=== PATIENT | female | born 1935 | race Caucasian/White ===

== ENCOUNTER 2024-07-16 08:40 | Inpatient (IN) | payer MEDICARE, OTHER, SELFPAY ==
[2024-07-16] VITALS (23 sets, daily range): BP systolic 117–133; BP diastolic 56–87; PULSE 63–74; RESP 0–21; TEMP 36.2–36.6; O2SAT 92–94; BMI 20.8
--- OUTSIDE RECORDS SUMMARY | 2024-07-16 08:43 | XMS_ITS | Encounter Summary ---
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 Name Role Phone Margie Lopez MD Primary Care Provider [phone] Encounter Details Date Type Department Care Team (Latest Contact Info) Description 08/09/2015 Consent for Procedure/Treatm ent Ophthalmology at [address] [address] Janette Shea MD [address] [id number] CONSENT FOR PROCEDURE Social History Tobacco Use Types Packs/Day Years Used Date Smoking Tobacco: Never Smokeless Tobacco: Never Alcohol Use Standard Drinks/Week Comments No 0 (1 standard drink = 0.6 oz pur e alcohol) Comments No Sex and Gender Information Value Date Recorded Sex Assigned at Not on file Legal Sex Female 3:32 AM CDT Gender Identity Not on file Sexual Orientation Not on file documented as of this encounter Plan of Treatment Not on file documented as of this encounter Visit Diagnoses Not on filedocumented in this encounter Additional Health Concerns Infection Onset Date Last Indicated Resolved Time R/O COVID19 06/28/2022 06/28/2022 06/28/2022 8:55 AM CDT documented as of this encounter 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
--- OUTSIDE RECORDS SUMMARY | 2024-07-16 08:43 | XMS_ITS | Clinical Summary ---
Author Organization Formerly [facility], [facility] Address [address], [place] [address] Care Team Providers Care Access Nurse Name Role Phone Margie Lopez MD Primary Care Provider [phone] Source Comments You are receiving this document as you are listed as the primary care provider,follow-up provider, or the patient has been referred to you for consultation.This is in compliance with the Medicare andMedicaid EHR Incentive Program,which states Providers who transition their patient to another setting of careor provider of care or refers their patient to another provider of care shouldprovide summary care record for each transition of care or referral. [facility] Allergies No known active allergies Medications * This document contains information received from the source organization and may not represent a complete record from that organization. VITAMIN D 400 UNIT OR CAPS One by mouth every day 30 9 Active Multiple Minerals-Vitam ins (CALCIUM CITRATE PLUS) Take 600 mg by mouth daily. 4 Active zoledronic acid (RECLAST) 5 MG/100ML injectionIndic ations:Hyperpa rathyroidism (HRC),Osteopen ia,Osteopenia with high risk of fracture Administer 5 mg intravenously yearly. Ok to give , gfr is >45 100 mL 0 6 Active ALBUterol sulfate HFA 108 (90 Base) MCG/ACT inhaler Inhale 1-2 Puffs every 4 hours as needed for Wheezing. Pharmacy may substitute albuterol HFA inhalers based on insurance 3 Inhaler 3 8 Active omeprazole (PRILOSEC) 20 MG capsule TAKE ONE CAPSULE BY MOUTH EVERY DAY ONE HOUR BEFORE BREAKFAST 90 Capsule 0 Active amLODIPine (NORVASC) 5 MG tablet Take 1 Tablet (5 mg) by mouth daily. Active levothyroxine (SYNTHROID) 50 MCG tablet Take 1 Tablet (50 mcg) by mouth daily. Active simvastatin (ZOCOR) 20 MG tablet Take 1 Tablet (20 mg) by mouth daily at bedtime. Active donepezil (ARICEPT) 10 MG tablet Take 1 Tablet (10 mg) by mouth daily at bedtime. Active celecoxib (CELEBREX) 100 MG capsule Take 1 Capsule (100 mg) by mouth daily. Active aspirin EC 81 MG enteric coated tablet Take 1 Tablet (81 mg) by mouth daily. Active cefpodoxime (VANTIN) 200 MG tablet Take 1 Tablet (200 mg) by mouth two times a day. 22 Tablet 07/01/2022 10:51 AM CDT 3 Active Active Problems Problem Noted Date Diagnosed Date Sepsis due to Escherichia coli 07/01/2022 Overview (07/01/2022): E. 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 Marquez from Pulmonary. 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 S/p thyroplasty at the [facility] by Dr. Gurpreet Loya. 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 Fecal incontinence 08/05/2006 Impaired fasting glucose 08/08/2005 Urinary incontinence 08/03/2005 Overview (12/23/2014): [facility] Uterine prolapse 08/03/2005 Overview (12/23/2014): [facility] Disorder of bone and cartilage 06/27/2004 Overview (12/23/2014): osteopenia at femoral neck and distal radius Epic Essential hypertension 05/12/2002 Overview (12/23/2014): Epic Hyperlipidemia with target LDL less than 100 Overview (12/01/2014): ICD 10 Cerebrovascular disease 05/12/2002 Overview (12/23/2014): Abnormal MRI of brain, showed few spots of stroke Saw Neurologist Dian Couch in [place] for headaches. Epic Diverticulosis of large intestine 05/12/2002 Overview (12/23/2014): [facility] Resolved Problems Problem Noted Date Diagnosed Date Resolved Date Pseudophakia, right eye 09/30/2015 09/0 09/2016 Overview (11/14/2016): Pseudophakia, right eye (09/29/15) and left eye (11/03/15) PSC (posterior subcapsular c ataract), bilateral 07/18/2015 11/04/2015 Overview (11/14/2016): PSC (posterior subcapsular cataract), OS Vascular insufficiency of intestine 05/12/2002 05/24/2014 Overview (12/23/2014): [facility] Immunizations Immunization Administration Dates Next Due Flu Vac (3+ yrs) 01/06/2007, 6,02/06/2005,2003,01/21/2002,01/22/2001,12/29/1999,1 Influenza IIV3 (Trivalent) Nidia Youngblooddose, 65+ Yrs (20586) 12/10/2017,12/06/2016,12/28/2014,2013 Influenza Vaccine (3+years) ([facility]) 01/21/2008 Influenza Vaccine TIV High D ose 65+ Yrs ([facility]) 12/11/2012,12/07/2010 Influenza, Unspecified Formulation 12/21,01/06/1996,01/12/1994,1992,01/18/1992,02/11/1991 Rachel COVID-19 Vaccine 06/02/2020 PCV13 (Prevnar) 01/08/2017 PPSV23 (Pneumovax) 01/13/2018,01/15/1990 Td 10/07/1997,12/23/1985 Td (7+ yrs) 07/27/2017 Tdap 08/08/2007 Varicella 10/08/1997(Deferred: Immune by Betty rome) Zoster (Zostavax) 07/27/2014 Family History Medical History Relation Name Comments Cataract Mother Cataract Brother Cancer, Breast Maternal Aunt Coronary Artery Disease Maternal Grandfather Coronary Artery Disease Maternal Grandmother Coronary Artery Disease Paternal Grandmother Cancer, Breast Sister 1 Cataract Sister 1 Cancer, Other Sister 2 lung cancer, e x smoker Diabetes, Type II Negative Family History Glaucoma Negative Family History Hypertension Negative Family History Macular Degeneration Negative Family History Thyroid Disorder Negative Family History Relation Name Status Comments Father (Age 56) Mother (Age 92) Brother Maternal Aunt Maternal Grandfather Maternal Grandmother Paternal Grandmother Sister 1 Sister 2 Social History Tobacco Use Types Packs/Day Years Used Date Smoking Tobacco: Never Smokeless Tobacco: Never Alcohol Use Standard Drinks/Week Comments No 0 (1 standard drink = 0.6 oz pur e alcohol) Comments No Sex and Gender Information Value Date Recorded Sex Assigned at Not on file Legal Sex Female 3:32 AM CDT Gender Identity Not on file Sexual Orientation Not on file Last Filed Vital Signs Vital Sign Reading Time Taken Comments Blood Pressure 144/75 07/01/2022 8:18 AM CDT Pulse 73 07/01/2022 8:18 AM CDT Temperature 36.9 C (98.4 F) 07/01/2022 8:18 AM CDT Respiratory Rate 16 07/01/2022 8:18 AM CDT Oxygen Saturation 97% 07/01/2022 8:18 AM CDT Inhaled Oxygen Concentration - - Weight 52.3 kg (115 lb 4.8 oz) 06/28/2022 4:59 P M CDT Height 167.6 cm (5' 6) 06/28/2022 4:59 PM CDT Body Mass Index 18.61 06/28/2022 4:59 PM CDT Plan of Treatment Health Maintenance Due Date Last Done Comments RSV Vaccine (1 - 1-dose 75+ series) 2011 Zoster/Shingles Vaccine (2 of 3) 09/21/2014 07/27/2014 Prediabetes: HGBA1C 11/05/2017 11/05/2016, Medicare Annual Wellness Visit 04/09/2018 04/09/2017 COVID-19 Vaccine ( season) 2023 06/02/2020 Influenza Vaccine (#1) 2023 0, 02/10/2019, 12/10/2017, Additional history exists DTaP/Tdap/Td Vaccine (3 - Tdap) 07/28/2027 07/27/2017, 07/27/2017, 08/08/2007, Additional history exists Dexa Completed 07/12/2016, 06/24, 04/29/2013, Additional history exists Pneumococcal Vaccine 50+ Yrs Completed , 01/08/2017, 01/15/1990 HepA Vaccine Aged Out No longer eligi ble based on patient's age to complete this topic HepB Vaccine Aged Out No longer eligi ble based on patient's age to complete this topic Hib Vaccine Aged Out No longer eligi ble based on patient's age to complete this topic IPV (Polio) Vaccine Aged Out No longe r eligible based on patient's age to complete this topic MCV4 Vaccine Aged Out No longer eligi ble based on patient's age to complete this topic Meningococcal B Vaccine Aged Out No l onger eligible based on patient's age to complete this topic Procedures Procedure Name Priority Date/Time Associated Diagnosis Comments HGB A1C Routine 11/05/2016 2:34 PM CDT Numbness of toes DXA BONE DENSITY SPINE/HIP/FOREARM Routine 07/12/2016 10:51 AM CDT Hyperparathyroidism (HRC) Osteopenia with high hip fracture proabability from Last 3 Months or Most Recently Relevant to Health Maintenance Results * (ABNORMAL) Hgb A1c (11/05/2016 2:34 PM CDT) Hgb A1c 6.1(H) 4.3 - 5.6 % [facility] Comment: See (NOTE) For patients not previously diagnosed with diabetes: 5.7-6.4%: Increased risk for diabetes (prediabetic) 6.5% and greater: Diagnostic for diabetes For diabetic patients: <8.0%: Goal of therapy for ages 18-75 - physicians may recommend a higher or lower goal for specific individuals 11/05/2016 2:34 PM CDT 11/05/2016 2:35 PM CDT Narrative [facility] - 11/06/2016 8:57 AM CDT Performed at [facility], [address] [place] [address] Annamarie Ann MD LAB_1 Final Result [facility] [phone] * DEXA BONE DENSITY SPINE/HIP/FOREARM (07/12/2016 10:51 AM CDT) Anatomical Region Laterality Modality Lower Extremity, Upper Extremity, Spine, Hip, L- Spine, Forearm Other Narrative 07/12/2016 12:52 PM CDT WHO Criteria for the diagnosis of osteoporosis: T-score >-1 Normal T-score between -1 and -2.5 Osteopenia T-score <-2.5 Osteoporosis Fracture risk: T-score -1 2 times increased -2 4 times increased -3 6 times increased *With previous fragility fracture, risk of subsequent fracture doubles again SCREENING FOR OSTEO, HOLD CALCIUM Indication:Osteopenia Insurance Application Investigator and Model of Instrument: [employer] Demographics Age: 81 y.o. Gender: female Height :5' .50 Weight (lbs):161 lbs. Race: Medical/Surgical History Menstrual periods:None Age of menopause:51 History of hip fractures in parents:No History of previous fractures occurring spontaneously, or a fracture as a result of a fall from a standing height or less:No If yes, indicated area: Glucocorticoids use:No Currently taking medication:None Have or had listed medical conditions:Hyperparathyroidism Dietary/Habit Alcohol 3units or more per day (on average):No Currently smoking:No Other pertinent history: Dual-X-ray Absorptiometry (DXA Results) AP spine (L1-L4) Left hip (neck) Left hip (total) Left forearm (1/3) BMD (gm/cm2) 1.038 0.668 0.804 0.577 T score -0.1 -1.6 -1.1 -2.0 Z score 2.6 0.7 0.9 1.2 %change from previous scan dated: 07/20/2014 3.8% 0.0% N/A FRAX Score: 10 YR Risk Hip Fracture % 3.3% Typical threshold to start therapy in patients is a 10-year risk of hip fracture >3%. Clinician s judgment and/or patient preferences may indicate treatment for people with 10-year fracture probabilities above or below these levels. 10 YR Risk Major Osteoporotic Fracture % 14% Typical threshold to start therapy in patients is a 10-year risk of any osteoporotic fracture >20%.Clinicians judgment and/or patient preferences may indicate treatment for people with 10-year fracture probabilities above or below these levels. Diagnosis: *Osteopenia of left hip and left forearm Recommendations:. *Ensure appropriate calcium and vitamin D intake. *Use the FRAX score (above) and clinical judgment to guide further therapy. Comments: *Degenerative joint disease, compression fractures, or calcification artifacts may falsely increase bone mineral density. -Compared to the most recent study there has been a statistically significant increase in bone mineral density at the spine which is clinically important. DXA Scan Follow-up When do you repeat a DXA scan? This depends on a number of factors, including baseline DXA scan results and risk factors for accelerated bone loss. Timing of follow up scan should be individualized. These are general recommendations, but if a patient has significant risk factors for accelerated bone loss that are not noted on the DXA report, more aggressive follow up should be pursued 1. In women and men with low bone mass (T-score -2.00 to -2.49) at any site or who have risk factors for ongoing bone loss (eg, glucocorticoid use, hyperparathyroidism, aromatase inhibitors, etc.), consider a follow-up DXA approximately every one to two years as long as the risk factor persists 2. In women 65 years of age and older at baseline screening, with low bone mass (T-score -1.50 to -1.99) at any site, and with no risk factors for accelerated bone loss, consider a follow-up DXA in three to five years. For women under 65 years old and men, there is no consensus recommendation due to the paucity of data. 3. In women 65 years of age and older with normal or slightly low bone mass (T-score -1.01 to -1.49) at baseline measurement and no risk factors for accelerated bone loss, consider a follow-up DXA in 10 to 15 years. For women under 65 years old and men, there is no consensus recommendation due to the paucity of data. 4. In patients with osteoporosis or who s FRAX score suggests treatment should be initiated, consider a follow-up DXA in one to two years. 5. In patients who are currently on treatment for low bone mass, consider repeating DXA scan one to two years after initiating treatment and possibly less frequently thereafter. There are no recommendations for men <50 years old, or premenopausal women. The FRAX tool has been developed by WHO to evaluate fracture risk to patients. It is based on individual patient models that integrate the risks associated with clinical risk factors as well as bone mineral density (BMD) at the femoral neck. The FRAX algorithms give the 10-year probability of fracture. The output is a 10-year probability of hip fracture and the 10-year probability of a major osteoporotic fracture (clinical spine, forearm, hip or shoulder fracture). Consider FDA-approved medical therapies in postmenopausal women and men aged 50 years and older, based on the following: A hip or vertebral (clinical or morphometric) fracture. T-score ? -2.5 at the femoral neck or spine after appropriate evaluation to exclude secondary causes. Low bone mass(T-score -1.0 and -2.5 at the femoral neck or spine) and a 10-year probability of a hip fracture ? 3% or a 10-year probability of a major osteoporosis-related fracture ? 20% based on the [place]-adapted WHO algorithm. Clinicians judgment and/or patient preferences may indicate treatment for people with 10-year fracture probabilities above or below these levels. Mare Dunaway MD RAD DEXA Final Result from Last 3 Months or Most Recently Relevant to Health Maintenance Insurance MEDICARE SUPPLEMENT MEDICARE HP PREVENTIVE SR PREV ONEVISIT Advance Directives * Do Not Attempt Resuscitation if Pulseless and Apneic, Do Not Intubate for Respiratory Deterioration(Latest Code Status on File) Date Activated Date Inactivated Comments 06/28/2022 4:42 PM 07/01/2022 2:20 PM Question Answer Comments See below for Life Sustainin g Treatment Orders IF pulse and breathing are present: See below Intubation for respiratory deterioration? No BiPAP for respiratory deterioration? Unaddressed /Yes Vasopressors for hypotension? Unaddressed/Yes Cardioversion for unstable rhythm? Unaddressed/Y es * Full Code Date Activated Date Inactivated Comments 06/28/2022 4:31 PM 06/28/2022 4:41 PM Care Teams Access Nurse Relationship Specialty Start Date End Date Margie Lopez MD [address] [place] [address] PCP - General Family Practice 06/29/22
--- OUTSIDE RECORDS SUMMARY | 2024-07-16 08:43 | XMS_ITS | Clinical Summary ---
Author Organization [facility] Address [address] [facility] [place] [address] Care Team Providers Care Home Care Manager Rn Name Role Phone Annamarie Ann MD Unavailable [phone] Kaleb Sun MD Unavailable [phone] Kaleb Sun MD Primary Care Provider + Allergies No known active allergies Medications VENTOLIN HFA 108 (90 BASE) MCG/ACT inhaler INHALE 2 PUFF BY INHALATION ROUTE EVERY 4 - 6 HOURS NEEDED 12 6 Active aspirin (ASA) 81 MG chewable tablet Take 81 mg by mouth At Bedtime Active Vitamin D, Cholecalciferol, 400 units TABS Take 400 Units by mouth every morning Active calcium carbonate-vitamin D (CALCIUM 600+D) 600-200 MG-UNIT TABS Take 1 tablet by mouth daily Active HYDROcodone-acetam inophen (NORCO) 5-325 MG tabletIndications: Pain Take 1 tablet by mouth every 6 hours as needed for pain. 18 tablet 4 Active simvastatin (ZOCOR) 20 MG tabletIndications: Hyperlipidemia, unspecified hyperlipidemia type Take 1 tablet (20 mg) by mouth at bedtime. 90 tablet 3 4 Active QUEtiapine (SEROQUEL) 50 MG tabletIndications: Dysthymic disorder Take 1 tablet (50 mg) by mouth at bedtime. 90 tablet 3 4 Active levothyroxine (SYNTHROID/LEVOTHR OID) 50 MCG tabletIndications: Acquired hypothyroidism Take 1 tablet (50 mcg) by mouth daily. 90 tablet 3 4 Active omeprazole (PRILOSEC) [address] capsuleIndications :Gastroesophageal reflux disease without esophagitis Take 1 capsule (20 mg) by mouth daily. 90 capsule 3 4 Active donepezil (ARICEPT) 10 MG tabletIndications: Dementia, unspecified dementia severity, unspecified dementia type, unspecified whether behavioral, psychotic, or mood disturbance or anxiety (H) Take 1 tablet (10 mg) by mouth at bedtime. 90 tablet 3 4 Active amLODIPine (NORVASC) 10 MG tabletIndications: Essential hypertension Take 1 tablet (10 mg) by mouth daily. 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 Marquez from Pulmonary. 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 S/p thyroplasty at the [facility] by Dr. Gurpreet Loya. Dysphonia improved after surgery Hyperparathyroidism 11/21/2012 Hyperlipidemia 04/09/2011 Varicose vein of leg 11/28/2007 Uterine prolapse 08/03/2005 Overview (12/13/2022): Epic Essential hypertension 05/12/2002 Overview (12/13/2022): Epic Encounters Date Type Department Care Team Description 07/15/2024 5:30 PM CDT E-Visit [facility] [address] [facility] [address] [place] [address] Kaleb Sun MD UTI (Entered automatically based on patien... 07/15/2024 MyC Medical Advice [facility] [address] [facility] [address] [place] [address] Kaleb Sun MD 06/14/2024 Refill [facility] [address] [facility] [address] [place] [address] Kaleb Sun MD Medication Refill from Last 3 Months Immunizations Name Administration Dates Next Due Flu, Unspecified 12/21/1996, 6,01/12/1994,1992,01/18/1992,02/11/1991 Influenza (H1N1) 03/29/2009 Influenza (High Dose) Trival ent,PF (Fluzone) 02/10/2019,12/10/2017,12/06/2016,2015,12/28/2014,12/08/2013,12/11/2012,1 ,12/07/2010,12/28/2009 Influenza (IIV3) PF 01/21/2008, 7,01/07/2006,2004,01/10/2004,01/21/2002,01/22/2001,1 ,12/28/1998 Influenza (prior to 2023) 12/31/2008 Influenza Vaccine 65+ (Fluzone HD) 02/07/2021, Influenza, Split Virus, Triv alent, Pf (Fluzone\Fluarix) 12/31/2008 Pneumo Conj 13-V (2010&after) 01/08/2017 Pneumococcal 23 valent 01/13/2018,01/15/1990 TD,PF 7+ (Tenivac) 10/07/1997,12/23/1985 TDAP (Adacel,Boostrix) 08/08/2007 TDAP Vaccine (Adacel) 07/27/2017 Tdap (Adult) Unspecified Formulation 08/08/2007 Zoster vaccine, live 07/27/2014 Social History Tobacco Use Types Packs/Day Years Used Date Smoking Tobacco: Never Smokeless Tobacco: Never Tobacco Cessation:Counseling Given: Not Answered Alcohol Use Standard Drinks/Week Comments No 0 (1 standard drink = 0.6 oz pur e alcohol) Social Connection and Isolation Panel [NHANES] A nswer Date Recorded Frequency of Communication with Friends and Fami ly Not on file 01/02/2024 How often do you get togethe r with friends or relatives? Patient declined 01/02/2024 Attends Druze Services Not on file 01/01 Active Member of Clubs or Organizations Not on f ile 01/02/2024 Attends Club or Organization Meetings Not on marcio e 01/02/2024 Marital Status Not on file 01/02/2024 PHQ-2 Answer Date Recorded PHQ-2 Score 3 12/13/2022 [facility] - Occupational Stress Questionnaire Answer Date Recorded Do you feel stress - tense, restless, nervous, or anxious, or unable to sleep at night because your mind is troubled all the time - these days? Patient declined 01/02/2024 Exercise Vital Sign Answer Date Recorde d On average, how many days pe r week do you engage in moderate to strenuous exercise (like a brisk walk)? Patient declined On average, how many minutes do you engage in exercise at this level? Patient declined 01/02/2024 Adolescent Education Answer Date Record ed Getting School Help Needed Not on file 12/14 Food Insecurity Answer Date Recorded Within the past 12 months, d id you worry that your food would run out before you got money to buy more? No 01/02/2024 Within the past 12 months, d id the food you bought just not last and you didn t have money to get more? No 01/02/2024 Housing Stability Answer Date Recorded Do you have housing? (Kleber pavon is defined as stable permanent housing and does not include staying outside in a car, in a tent, in an abandoned building, in an overnight jail, or couch-surfing.) Yes 01/02/2024 Are you worried about losing your housing? No 01/02/2024 Financial Resource Strain Answer Date R ecorded Within the past 12 months, h ave you or your family members you live with been unable to get utilities (heat, electricity) when it was really needed? No 01/02/2024 Transportation Needs Answer Date Record ed Within the past 12 months, h as lack of transportation kept you from medical appointments, getting your medicines, non-medical meetings or appointments, work, or from getting things that you need? 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 Gender Identity Not on file Sexual Orientation Not on file Last Filed Vital Signs Vital Sign Reading Time Taken Comments Blood Pressure 122/78 12/13/2022 1:24 PM CDT Pulse 95 12/13/2022 1:16 PM CDT Temperature 36.3 C (97.4 F) 12/13/2022 1:16 PM CDT Respiratory Rate 16 12/13/2022 1:16 PM CDT Oxygen Saturation 96% 12/13/2022 1:16 PM CDT Inhaled Oxygen Concentration - - Weight 50.8 kg (112 lb) 12/13/2022 1:16 PM CDT Height 152.4 cm (5') 12/13/2022 1:16 PM CDT Body Mass Index 21.87 12/13/2022 1:16 PM CDT Plan of Treatment Health Maintenance Due Date Last Done Comments DEPRESSION ACTION PLAN 1936 EYE EXAM 1935 RSV VACCINE (1 - 1-dose 75+ series) 2011 ZOSTER IMMUNIZATION (2 of 3) 09/21/2014 07/27/2014 PHQ-9 06/13/2023 12/13/2022 COVID-19 Vaccine (2 - season) 2023 06/02/2020 INFLUENZA VACCINE (#1) 2023 , 01/28/2020, 02/10/2019, Additional history exists DIABETIC FOOT EXAM 12/14/2023 12/13/2022 A1C 04/03/2024 01/02/2024, 11/24, 12/05/2018 ANNUAL REVIEW OF HM ORDERS 01/01/2025 01/02/2024, BMP 01/01/2025 01/02/2024, 11/24, 04/12/2021, Additional history exists FALL RISK ASSESSMENT 01/01/2025 01/02/2024, 12/13/2022, 01/11/2016 LIPID 01/01/2025 01/02/2024, 12/06/2018 MEDICARE ANNUAL WELLNESS VISIT 01/01/2025 01/02/2024, 12/13/2022, 08/31/2010, Additional history exists TSH W/FREE T4 REFLEX 01/01/2025 01/02/2024, 12/14/19 23 MICROALBUMIN 01/02/2025 01/03/2024 DTAP/TDAP/TD IMMUNIZATION (4 - Td or Tdap) 07/28/2027 07/27/2017, 08/08/2007, 08/08/2007, Additional history exists ADVANCE CARE PLANNING 12/14/2027 12/13/2022 DEXA 07/13/2031 07/12/2016 Pneumococcal Vaccine: 50+ Years Completed 01/13/2018, 01/08/2017, 01/15/1990 HPV IMMUNIZATION Aged Out No longer e ligible based on patient's age to complete this topic MENINGITIS IMMUNIZATION Aged Out No l onger eligible based on patient's age to complete this topic Procedures Procedure Name Priority Date/Time Associated Diagnosis Comments ALBUMIN RANDOM URINE QUANTITATIVE Routine 01/03/2024 10:00 AM CDT Diabetes mellitus (H) TSH WITH FREE T4 REFLEX Routine 01/02/2024 1:41 PM CDT Acquired hypothyroidism LIPID REFLEX TO DIRECT LDL PANEL Routine 01/02/2024 1:41 PM CDT Hyperlipidemia, unspecified hyperlipidemia type COMPREHENSIVE METABOLIC PANEL Routine 01/02/2024 1:41 PM CDT Hyperlipidemia, unspecified hyperlipidemia type Essential hypertension HEMOGLOBIN A1C Routine 01/02/2024 1:41 PM CDT Type 2 diabetes mellitus without complication, without long-term current use of insulin (H) from Last 3 Months or Most Recently Relevant to Health Maintenance Results * (ABNORMAL) Albumin Random Urine Quantitative with Creat Ratio (01/03/2024 10:00 AM CDT) Creatinine Urine mg/dL 222.0 mg/dL 01/03/2024 6:30 PM CDT [facility] Comment:The reference ranges have not been established in urine creatinine. The results should be integrated into the clinical context for interpretation. Albumin Urine mg/L 60.1 mg/L 2023 6:30 PM CDT [facility] Comment:The reference ranges have not been established in urine albumin. The results should be integrated into the clinical context for interpretation. Albumin Urine mg/g Cr 27.07(H) 0.00 - 25.00 mg/g Cr 01/03/2024 6:30 PM CDT [facility] Comment: Microalbuminuria is defined as an albumin:creatinine ratio of 17 to 299 for males and 25 to 299 for females. A ratio of albumin:creatinine of 300 or higher is indicative of overt proteinuria. Due to biologic variability, positive results should be confirmed by a second, first-morning random or 24-hour timed urine specimen. If there is discrepancy, a third specimen is recommended. When 2 out of 3 results are in the microalbuminuria range, this is evidence for incipient nephropathy and warrants increased efforts at glucose control, blood pressure control, and institution of therapy with an qjgztosskvt-rktqgkqilv-tjwbkr (TYLER) inhibitor (if the patient can tolerate it). Urine URINE SPECIMEN / Unknown Non-blood Collection / Unknown 01/03/2024 10:00 AM CDT 01/03/2024 10:13 AM CDT us Kaleb Sun MD LAB - URINE ORDERABLES F inal Result U [facility]AT[facility] [address] [facility], [address] [place] [address] * TSH with free T4 reflex (01/02/2024 1:41 PM CDT) TSH 1.01 0.30 - 4.20 uIU/mL 01/03/2024 2:41 AM CDT [facility] Blood BLOOD SPECIMEN / Unknown Venipuncture / Unknown 01/02/2024 1:41 PM CDT 01/02/2024 1:42 PM CDT us Kaleb Sun MD LAB - BLOOD ORDERABLES F inal Result [facility] [address] [facility], [address] [place] [address] * (ABNORMAL) Lipid panel reflex to direct LDL Fasting (01/02/2024 1:41 PM CDT) Cholesterol 112 <200 mg/dL 01/03/2024 2:41 AM CDT [facility] Triglycerides 177(H) <150 mg/dL 01/03/2024 2:41 AM CDT [facility] Direct Measure HDL 36(L) >=50 mg/dL 01/03/2024 2:41 AM CDT [facility] LDL Cholesterol Calculated 41 <100 mg/dL 01/03/2024 2:41 AM CDT [facility] Non HDL Cholesterol 76 <130 mg/dL 01/03/2024 2:41 AM CDT [facility] Patient Fasting > 8hrs? No 01/03/2024 2:41 AM CDT [facility] Blood BLOOD SPECIMEN / Unknown Venipuncture / Unknown 01/02/2024 1:41 PM CDT 01/02/2024 1:42 PM CDT Narrative [facility] - 01/03/2024 2:41 AM CDT Cholesterol Desirable: < 200 mg/dL Borderline High: 200 - 239 mg/dL High: >= 240 mg/dL Triglycerides Normal: < 150 mg/dL Borderline High: 150 - 199 mg/dL High: 200-499 mg/dL Very High: >= 500 mg/dL Direct Measure HDL Female: >= 50 mg/dL Male: >= 40 mg/dL LDL Cholesterol Desirable: < 100 mg/dL Above Desirable: 100 - 129 mg/dL Borderline High: 130 - 159 mg/dL High: 160 - 189 mg/dL Very High: >= 190 mg/dL Non HDL Cholesterol Desirable: < 130 mg/dL Above Desirable: 130 - 159 mg/dL Borderline High: 160 - 189 mg/dL High: 190 - 219 mg/dL Very High: >= 220 mg/dL Kaleb Sun MD LAB - BLOOD ORDERABLES F inal Result [facility] [address] [place] [address], [facility] * Hemoglobin A1c (01/02/2024 1:41 PM CDT) Pathologist [facility] Estimated Average Glucose 105 <117 mg/dL 01/02/2024 1:47 PM CDT LABORATORY Hemoglobin A1C 5.3 0.0 - 5.6 % 01/02/2024 1:47 PM CDT LABORATORY Comment: Normal <5.7% Prediabetes 5.7-6.4% Diabetes 6.5% or higher Note: Adopted from ADA consensus guidelines. Blood BLOOD SPECIMEN / Unknown Venipuncture / Unknown 01/02/2024 1:41 PM CDT 01/02/2024 1:42 PM CDT Kaleb Sun MD LAB - BLOOD ORDERABLES F inal Result Performing Organization Address City/[facility] Co de Phone Number LABORATORY [facility] [place] [facility] [address] [facility] Lab (no room number, 1st floor of clinic) [place] [address], [facility] * (ABNORMAL) Comprehensive metabolic panel (BMP + Alb, Alk Phos, ALT, AST, Total. Bili, TP) (01/02/2024 1:41 PM CDT) Sodium 146(H) 135 - 145 mmol/L 01/03/2024 2:41 AM CDT U LAB[facility]ORY Potassium 4.1 3.4 - 5.3 mmol/L 01/03/2024 2:41 AM CDT [facility] Carbon Dioxide (CO2) 26 22 - 29 mmol/L 01/03/2024 2:41 AM CDT [facility] Anion Gap 10 7 - 15 mmol/L 01/03/2024 2:41 AM CDT [facility] Urea Nitrogen 24.5(H) 8.0 - 23.0 mg/dL 01/03/2024 2:41 AM CDT [facility] Creatinine 1.12(H) 0.51 - 0.95 mg/dL 01/03/2024 2:41 AM CDT [facility] GFR Estimate 47(L) >60 mL/min/1.7 3m2 01/03/2024 2:41 AM CDT [facility] Comment:eGFR calculated usin 2020 CKD-EPI equation. Calcium 9.9 8.8 - 10.4 mg/dL 01/03/2024 2:41 AM CDT [facility] Comment:Reference intervals for this test were updated on 10/08/2023 to reflect our healthy population more accurately. There may be differences in the flagging of prior results with similar values performed with this method. Those prior results can be interpreted in the context of the updated reference intervals. Chloride 110(H) 98 - 107 mmol/L 01/03/2024 2:41 AM CDT [facility] Glucose 135(H) 70 - 99 mg/dL 01/03/2024 2:41 AM CDT [facility] Alkaline Phosphatase 67 40 - 150 U/L 01/03/2024 2:41 AM CDT [facility] AST 17 0 - 45 U/L 01/03/2024 2:41 AM CDT [facility] ALT 7 0 - 50 U/L 01/03/2024 2:41 AM CDT [facility] Protein Total 6.9 6.4 - 8.3 g/dL 01/03/2024 2:41 AM CDT [facility] Albumin 4.0 3.5 - 5.2 g/dL 01/03/2024 2:41 AM CDT [facility] Bilirubin Total 0.3 <=1.2 mg/dL 01/03/2024 2:41 AM CDT [facility] Patient Fasting > 8hrs? No 01/03/2024 2:41 AM CDT [facility] Blood BLOOD SPECIMEN / Unknown Venipuncture / Unknown 01/02/2024 1:41 PM CDT 01/02/2024 1:42 PM CDT us Kaleb Sun MD LAB - BLOOD ORDERABLES F inal Result [facility] [address] [facility] [address] [facility], [address] [place] [address] from Last 3 Months or Most Recently Relevant to Health Maintenance Insurance [place] [facility] [place] Address: [address] [place] [address] MEDICARE [employer] Advance Directives For more information, please contact: [phone] * Full Code (Latest Code Status on File) Date Activated Date Inactivated Comments 12/05/2018 9:16 PM 12/07/2018 4:31 PM Question Answer Comments Code status determined by: Discussion with juan nt/legal decision maker Care Teams Home Care Manager Rn Relationship Specialty Start Date End Date Kaleb Sun MD [address] [place] [address] PCP - General Internal Medicine 01/03/24 Annamarie Ann MD [address] [place] [address] Internal Medicine 03/13/21 Kaleb Sun MD [address] [address] Assigned PCP 12/22/22
--- OUTSIDE RECORDS SUMMARY | 2024-07-16 08:43 | XMS_ITS | Encounter Summary ---
Author Organization [facility] [address], [place] [address] Care Team Providers Care Cage Cashier Name Role Phone Margie Lopez MD Primary Care Provider [phone] Encounter Details Date Type Department Care Team ([facility] st Contact Info) Description 07/27/2014 Correspondence [facility] [address] [place] [address] Mare Dunaway MD [address] [place] [address] ZOSTER VACCINE PAW Social History Tobacco Use Types Packs/Day Years [...] documented as of this encounter Care Teams Cage Cashier Relationship Specialty Start Date End Date Margie Lopez MD [address] [place] [address] PCP - General Family Practice 06/29/22 documented as of this encounter
--- OUTSIDE RECORDS SUMMARY | 2024-07-16 08:43 | XMS_ITS | Encounter Summary ---
Author Organization [facility] Address [address] [place] [address] Care Team Providers Care Extermination Inspector Name Role Phone Annamarie Ann MD Unavailable [phone] Kaleb Sun MD Unavailable Kaleb Sun MD Primary Care Provider + Reason for Visit * Reason Comments UTI Entered automaticall y based on patient selection in [employer]. Encounter Details Date Type Department Care Team (Late st Contact Info) Description 07/15/2024 5:30 PM CDT E-Visit [address] [place] [address] Kaleb Sun MD [address] [place] [address] UTI (Entered automatically based on patien... Social History Tobacco Use Types Packs/Day Years [...] friends or relatives? Patient declined 01/02/2024 Attends Restorationist Services Not on file 01/01 Active Member of Clubs or Organizations Not on f ile 01/02/2024 Attends Club or Organization Meetings Not on marcio e 01/02/2024 Marital Status Not on file 01/02/2024 PHQ-2 Answer Date Recorded PHQ-2 Score 3 12/13/2022 [facility] - Occupational Stress Questionnaire Answer Date Recorded [...] Answer Date Recorded Do you have housing? 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 This urine test is to evaluate you for a possible urinary tract infection, and shouldbe scheduled for today or tomorrow. Schedule a Lab Only appointment here. Lab appointments are not available at most locations on the weekends. If no Lab Only appointment isavailable, you should be seen in any of our convenient Walk- in or Urgent Care Centers, which can befound on our website here. You will receive instructions with your results in [facility] once they are available. If your symptoms worsen, you develop pain in your back or stomach, develop fevers, or are not improving in 5 days, please contact your primary care provider for an appointment or visit a Walk-in or Urgent Care Center to be seen. Thanks again for choosing us as your health care transition manager, Kaleb Michel. MD Dino documented in this encounter Miscellaneous Notes * Telephone Encounter - Kaleb Sun MD - 07/16/2024 6:55 AM CDT Provider E-Visit time total (minutes): 5 minutes documented in this encounter Plan of Treatment Scheduled Orders Name Type Priority Associated Diagnoses Orde r Schedule UA Macroscopic with reflex to Microscopic and Culture Lab Routine Dysuria Expected: 07/16/2024 (Approximate), Expires: 07/23/2024 documented as of this encounter Visit Diagnoses Diagnosis Dysuria- Primary documented in this encounter Additional Health Concerns Assessment Noted Time PHQ-9 Depression Total Score: 10 023 1:11 PM CDT documented as of this encounter Care Teams Extermination Inspector Relationship Specialty Start Date End Date Kaleb Sun MD [address] [facility] [place] [address] PCP - General Internal Medicine 01/03/24 Annamarie Ann MD [address] [place] [id number] Internal Medicine 03/13/21 Kaleb Sun MD [address] [facility] [place] [address] Assigned PCP 12/22/22 documented as of this encounter
--- OUTSIDE RECORDS SUMMARY | 2024-07-16 08:43 | XMS_ITS | Encounter Summary ---
[facility] Address [address] [address] Care Team Providers Care Chemical Test Engineer Name Role Phone Margie Lopez MD Primary Care Provider [phone] Encounter Details Date Type Department Care Team (Latest Contact Info) Description 03/20/1995 Orders Only Leslie Hoyos MD [address] [place] [address] Social History Tobacco Use Types Packs/Day Years Used Date Smoking Tobacco: Never Assessed Comments Unknown Sex and Gender Information Value Date Recorded [...] documented as of this encounter Care Teams Chemical Test Engineer Relationship Specialty Start Date End Date Margie Lopez MD [address] [place] [address] PCP - General Family Practice 06/29/22 documented as of this encounter
--- OUTSIDE RECORDS SUMMARY | 2024-07-16 08:43 | XMS_ITS | Encounter Summary ---
[facility] Address [address] [place] [address] Care Team Providers Care Hair Sample Matcher Name Role Phone Margie Lopez MD Primary Care Provider [phone] Encounter Details Date Type Department Care Team (Latest Contact Info) Description 01/01/1995 Orders Only Charissa Coleman MD [address] [place] [address] Social History Tobacco Use Types Packs/Day Years [...] documented as of this encounter Care Teams Hair Sample Matcher Relationship Specialty Start Date End Date Margie Lopez MD [address] [place] [address] PCP - General Family Practice 06/29/22 documented as of this encounter
--- OUTSIDE RECORDS SUMMARY | 2024-07-16 08:43 | XMS_ITS | Encounter Summary ---
Author [facility] Address [address] [place] [address] Care Team Providers Care Freight Team Associate Name Role Phone Margie Lopez MD Primary Care Provider [phone] Encounter Details Date Type Department Care Team (Latest Contact Info) Description 01/22/1995 Orders Only Charissa Coleman MD [address] [place] [address] Social History Tobacco Use Types Packs/Day Years [...] documented as of this encounter Care Teams Freight Team Associate Relationship Specialty Start Date End Date Margie Lopez MD [address] [place] [address] PCP - General Family Practice 06/29/22 documented as of this encounter
--- OUTSIDE RECORDS SUMMARY | 2024-07-16 08:43 | XMS_ITS | Encounter Summary ---
Author Organization [facility] Address [address], [place] [address] Care Team Providers Care Pin Sorter And Bagger Name Role Phone Margie Lopez MD Primary Care Provider [phone] Encounter Details Date Type Department Care Team (Latest Contact Info) Description 02/15/1995 Orders Only Adam Alvarez MD [address] [place] [address] Social History Tobacco Use Types Packs/Day Years [...] documented as of this encounter Care Teams Pin Sorter And Bagger Relationship Specialty Start Date End Date Margie Lopez MD [address] [place] [address] PCP - General Family Practice 06/29/22 documented as of this encounter
--- OUTSIDE RECORDS SUMMARY | 2024-07-16 08:43 | XMS_ITS | Encounter Summary ---
Author Organization [facility] Address [address] [place] [address] Care Team Providers Care Glass Handler Name Role Phone Margie Lopez MD Primary Care Provider [phone] Encounter Details Date Type Department Care Team (Late st Contact Info) Description 09/29/2015 Same Day Surgery Ophthalmology at [facility] [address] [id number] Janette Shea MD [address] [id number] Social History Tobacco Use Types Packs/Day Years [...] documented as of this encounter Care Teams Glass Handler Relationship Specialty Start Date End Date Margie Lopez MD [address] [place] [address] PCP - General Family Practice 06/29/22 documented as of this encounter
--- OUTSIDE RECORDS SUMMARY | 2024-07-16 08:43 | XMS_ITS | Encounter Summary ---
Author Organization [facility] Address [address] [place] [address] Care Team Providers Care Electronic Transaction Implementer Name Role Phone Margie Lopez MD Primary Care Provider [phone] Encounter Details Date Type Department Care Team (Latest Contact Info) Description 09/30/2015 Consent for Procedure/Treatm ent Ophthalmology at [address] [address] Janette Shea MD [address] [address] INFORMED CONSENT FORM Social History Tobacco Use Types Packs/Day Years [...] documented as of this encounter Care Teams Electronic Transaction Implementer Relationship Specialty Start Date End Date Margie Lopez MD [address] [place] [address] PCP - General Family Practice 06/29/22 documented as of this encounter
--- OUTSIDE RECORDS SUMMARY | 2024-07-16 08:43 | XMS_ITS | Encounter Summary ---
Author Organization [facility] Address [address] [place] [address] Care Team Providers Care Client Services Vice President Name Role Phone Annamarie Ann MD Unavailable [phone] Kaleb Sun MD Unavailable Kaleb Sun MD Primary Care Provider + Encounter Details Date Type Department Care Team (Late st Contact Info) Description 07/15/2024 MyC Medical Advice [address] [place] [address] Kaleb Sun MD [address] [place] [address] Social History Tobacco Use Types Packs/Day Years [...] friends or relatives? Patient declined 01/02/2024 Attends Restoration Services Not on file 01/01 Active Member of Clubs or Organizations Not on f ile 01/02/2024 Attends Club or Organization Meetings Not on marcio e 01/02/2024 Marital Status Not on file 01/02/2024 PHQ-2 Answer Date Recorded PHQ-2 Score 3 12/13/2022 [facility] - [facility]ational Stress Questionnaire Answer [...] Answer Date Recorded Do you have housing? (Jose Angelin g is defined as stable permanent housing and does not include staying outside in a car, in a tent, in an abandoned building, in an overnight [place] [facility] [place], or couch-surfing.) Yes 01/02/2024 Are you worried [...] on file Legal Sex Female 3:21 AM SOFTWARE IMPLEMENTATION SPECIALIST Gender Identity Not on file Sexual Orientation Not on file documented as of this encounter Plan of Treatment Not on file documented as of this encounter Visit Diagnoses Not on filedocumented in this encounter Additional Health Concerns Assessment Noted Time PHQ-9 Depression Total Score: 10 023 1:11 PM CDT documented as of this encounter Care Teams Client Services Vice President Relationship Specialty Start Date End Date Kaleb Sun MD [address] [place] [address] PCP - General Internal Medicine 01/03/24 Annamarie Ann MD [address] [place], [place] [address] Internal Medicine 03/13/21 Kaleb Sun MD [address] [place] [address] Assigned PCP 12/22/22 documented as of this encounter
--- OUTSIDE RECORDS SUMMARY | 2024-07-16 08:43 | XMS_ITS | Encounter Summary ---
Author Organization [facility] Address [address] [place] [address] Care Team Providers Care Tool And Die Technician Name Role Phone Margie Lopez MD Primary Care Provider [phone] Encounter Details Date Type Department Care Team (Latest Contact Info) Description 11/21/1994 Orders Only Charissa Coleman MD [address] [place] [address] Social History Tobacco Use Types Packs/Day Years [...] documented as of this encounter Care Teams Tool And Die Technician Relationship Specialty Start Date End Date Margie Lopez MD [address] [place] [address] PCP - General Family Practice 06/29/22 documented as of this encounter
--- OUTSIDE RECORDS SUMMARY | 2024-07-16 08:43 | XMS_ITS | Encounter Summary ---
Author Organization [facility] Address [address] [place] [address] Care Team Providers Care Food Critic Name Role Phone Annamarie Ann MD Unavailable [phone] Kaleb Sun MD Unavailable Kaleb Sun MD Primary Care Provider + Reason for Visit * Reason Comments Medication Refill Encounter Details Date Type Department Care Team (Late st Contact Info) Description 06/14/[address] [place] [address] Kaleb Sun MD [address] [place], [place] [address] Medication Refill Social History Tobacco Use Types Packs/Day Years [...] friends or relatives? 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 SUPPORT SPECIALIST Gender Identity Not on file Sexual Orientation Not on file documented as of this encounter Plan of Treatment Not on file documented as of this encounter Visit Diagnoses Diagnosis Pain Generalized pain documented in this encounter Additional Health Concerns Assessment Noted Time PHQ-9 Depression Total Score: 10 023 1:11 PM CDT documented as of this encounter Care Teams Food Critic Relationship Specialty Start Date End Date Kaleb Sun MD [address] [place] [address] PCP - General Internal Medicine 01/03/24 Annamarie Ann MD [address] [place], [place] [address] Internal Medicine 03/13/21 Kaleb Sun MD [address] [place] [address] Assigned PCP 12/22/22 documented as of this encounter
--- OUTSIDE RECORDS SUMMARY | 2024-07-16 08:44 | XMS_ITS | Encounter Summary ---
Author Organization [facility] Address [address], [place] [address] Care Team Providers Care Flame Brazing Machine Operator Name Role Phone Margie Lopez MD Primary Care Provider [phone] Encounter Details Date Type Department Care Team (Latest Contact Info) Description 07/23/1997 Orders Only Leslie Hoyos MD [address] [place] [address] Social History Tobacco Use Types Packs/Day Years [...] documented as of this encounter Care Teams Flame Brazing Machine Operator Relationship Specialty Start Date End Date Margie Lopez MD [address] [place] [address] PCP - General Family Practice 06/29/22 documented as of this encounter
--- OUTSIDE RECORDS SUMMARY | 2024-07-16 08:44 | XMS_ITS | Encounter Summary ---
Author Organization [facility] Address [address] [place] [address] Care Team Providers Care Loop Puller Name Role Phone Margie Lopez MD Primary Care Provider [phone] Encounter Details Date Type Department Care Team (Late st Contact Info) Description 07/22/2016 Refill Order [facility] Internal Medicine [place] [address] [place], [place] [phone] Annamarie Ann MD [address] [place], [place] [address] Social History Tobacco Use Types Packs/Day Years [...] on file documented as of this encounter Nursing Notes * Massiel Shah CMA - 07/23/2016 9:25 AM CDT Letter sent to pt. Massiel Shah CMA 07/23/2016, 9:25 AM documented in this encounter Plan of Treatment Not on file documented as of this encounter Visit Diagnoses Diagnosis Encounter for long-term (current) use of medications- Primary Encounter for long-term (current) use of other medications documented in this encounter Additional Health Concerns Infection Onset Date Last Indicated Resolved Time R/O COVID19 06/28/2022 06/28/2022 06/28/2022 8:55 AM CDT documented as of this encounter Care Teams Loop Puller Relationship Specialty Start Date End Date Margie Lopez MD [address] [place] [address] PCP - General Family Practice 06/29/22 documented as of this encounter
--- OUTSIDE RECORDS SUMMARY | 2024-07-16 08:44 | XMS_ITS | Encounter Summary ---
Author Organization [facility] Address [address], [place] [address] Care Team Providers Care B2B Sales Executive Name Role Phone Margie Lopez MD Primary Care Provider [phone] Encounter Details Date Type Department Care Team (Latest Contact Info) Description 12/26/1998 Orders Only Cherelle Joya MD [facility] [address] [facility] [place], [place] [id number] Social History Tobacco Use Types Packs/Day Years [...] documented as of this encounter Care Teams B2B Sales Executive Relationship Specialty Start Date End Date Margie Lopez MD [address] [place] [address] PCP - General Family Practice 06/29/22 documented as of this encounter
--- OUTSIDE RECORDS SUMMARY | 2024-07-16 08:44 | XMS_ITS | Encounter Summary ---
Author Organization [facility] Address [address] [place] [address] Care Team Providers Care Oral Communication Instructor Name Role Phone Margie Lopez MD Primary Care Provider [phone] Encounter Details Date Type Department Care Team (Latest Contact Info) Description 08/23/1994 Orders Only Kat Ger[address] [place] [address] [address], [place] [address] Social History Tobacco Use Types Packs/Day Years [...] documented as of this encounter Care Teams Oral Communication Instructor Relationship Specialty Start Date End Date Margie Lopez MD [address] [place] [address] PCP - General Family Practice 06/29/22 documented as of this encounter
--- OUTSIDE RECORDS SUMMARY | 2024-07-16 08:44 | XMS_ITS | Clinical Summary ---
Author Organization [facility] Address [address] [place] [address] Care Team Providers Care World Language Teacher Name Role Phone Annamarie Ann MD Primary Care Provider [phone] Allergies No known active allergies Medications FOSAMAX 35 MG TAB 1 a week 0 Active NORVASC 10 MG TAB once a day 0 Active DOCUSATE SODIUM 100 MG CAP take 1 capsule twice a day (stool softener) 60 0 6 Active simvastatin (ZOCOR) 40 mg tablet Take 20 mg by mouth at bedtime. Active aspirin-dipyrid amole (AGGRENOX) 25-200 mg capsule Take 1 capsule by mouth 2 times daily. Active citalopram (CELEXA) 10 mg tablet Take 10 mg by mouth once daily. Active cyanocobalamin 1,000 mcg tablet Take 1,000 mcg by mouth once daily. Active levothyroxine (SYNTHROID) 25 mcg tablet Take 25 mcg by mouth before breakfast. Active CALCIUM CIT/MAG/D3/ZN/C OP/GRISEL (CALCIUM CITRATE PLUS ORAL) Take 600 mg by mouth once daily. Active OMEPRAZOLE (PRILOSEC ORAL) Take 20 mg by mouth once daily. Active tolterodine (DETROL LA) 4 mg Extended-Releas e capsule Take 4 mg by mouth once daily. Active Cholecalciferol , Vitamin D3, 400 unit capsule Take 400 Units by mouth. Active zoledronic acid in mannitol & water (RECLAST) 5 mg/100 mL infusion Inject 5 mg intravenous one time. Yearly. OK to give gfr is >45 Active VENTOLIN HFA 90 mcg/actuation inhaler 12 6 Active ARNUITY ELLIPTA 100 mcg/actuation inhaler 12 6 Active metoprolol tartrate (LOPRESSOR) 25 mg tablet 6 Active gatifloxacin 0.5% (ZYMAXID) 0.5 % ophthalmic solution Place 1 drop in left eye 4 times daily. 2.5 mL 11/03/2015 10:09 AM CDT 6 Active prednisoLONE acetate 1% ophthalmic (ECONOPRED PLUS, PRED FORTE, OMNIPRED) suspension Place 1 drop in left eye 4 times daily. SHAKE WELL 5 mL 11/03/2015 10:09 AM CDT 6 Active ketorolac 0.5 % ophthalmic (ACULAR) solution Place 1 drop in left eye 4 times daily. 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 SERUM INSPECTOR Gender Identity Not on file Sexual Orientation Not on file Obstetrics History Last Filed Vital Signs Vital Sign Reading Time Taken Comments Blood Pressure 137/74 12/14/2020 11:00 AM CDT Pulse 74 12/14/2020 11:00 AM CDT Temperature 36.6 C (97.8 F) 12/14/2020 11:00 AM CDT Respiratory Rate 18 12/14/2020 11:00 AM CDT Oxygen Saturation 97% 12/14/2020 11:00 AM CDT Inhaled Oxygen Concentration - - Weight 72.6 kg (160 lb 0.9 oz) 12/14/2020 11:00 AM CDT Height 152.4 cm (5') 04/26/2017 1:39 PM VETERINARY VIRUS SERUM INSPECTOR Body Mass Index 31.26 04/26/2017 1:39 PM VETERINARY VIRUS SERUM INSPECTOR Plan of Treatment Health Maintenance Due Date Last Done Comments Depression screening for age 12+ 1948 BMI (ht and wt on same day) for age 18+ 1954 Pneumococcal series for age 50+ (1 of 1 - PCV) 987 Zoster (shingles) series for age 50+ (1 of 2) 05/01/18 87 DEXA/DXA scan for age 65+ 2001 RSV vaccine for adults or pr egnancy (1 - 1-dose 75+ series) 2011 COVID-19 vaccine series (2 - season) 2020 Influenza Vaccine (Season Ended) 2024 Tetanus booster 07/28/2027 07/27/2017 Tdap Completed 07/27/2017 Medical Devices Implanted Type Area Pipeliner Device Identifier Shelf Expiration Date Model / Serial / Lot System Prolift Pfr Total - [id number] Implanted:Qty: 1 on 09/26/2005 at [facility] [employer] [id number]# / / [id number] Lens Iol 20.5 Wf [id number]. 5 - [id number] Implanted:Qty: 1 on 09/29/2015 by Janette Shea MD at [facility] Right: Eye [employer] 07/12/2020 [id number]. 5# / [id number] / Lens Iol 20.5 Wf [id number]. 5 - [id number] Implanted:Qty: 1 on 11/03/2015 by Janette Shea MD at [facility] Left: Eye [employer] 09/21/2020 [id number]. 5# / [id number] / [place] [id number] [place] PART B HB ONLY Member Subscriber Plan / Payer (Ef fective 2001-Present) Name:Erika Martinez Member ID:[id number] Relation to Subscriber:Self Name:Erika Martinez Subscriber ID:[id number] Payer ID:Not on file Group ID:Not on file Type:Not on file Address: ATTN: CLAIMS [address] MEDICARE PART A HB ONLY Member Subscriber Plan / Payer (Ef fective 2001-Present) Name:Erika Martinez Member ID:[id number] Relation to Subscriber:Self Name:Erika Martinez Subscriber ID:[id number] Payer ID:Not on file Group ID:Not on file Type:Not on file Address: ATTN: CLAIMS [address] MEDICARE PB ONLY Member Subscriber Plan / Payer (Ef fective 2001-Present) Name:Erika Martinez Member ID:[id number] Relation to Subscriber:Self Name:Erika Martinez Subscriber ID:[id number] Payer ID:Not on file Group ID:Not on file Type:Not on file Address: ATTN: CLAIMS [address] [place] [id number] Advance Directives * Full Code (Latest Code Status on File) Date Activated Date Inactivated Comments 11/02/2015 10:10 PM 11/03/2015 12:11 PM * Full Code Date Activated Date Inactivated Comments 09/28/2015 10:35 AM 09/29/2015 11:33 AM Care Teams World Language Teacher Relationship Specialty Start Date End Date Annamarie Ann MD [address] [place] [address] PCP - General 09/19/05
--- OUTSIDE RECORDS SUMMARY | 2024-07-16 08:44 | XMS_ITS | Encounter Summary ---
Author Organization [facility] Address [address], [place] [address] Care Team Providers Care Marina Sales And Service Supervisor Name Role Phone Margie Lopez MD Primary Care Provider [phone] Encounter Details Date Type Department Care Team (Latest Contact Info) Description 03/13/1996 Orders Only Cherelle Joya MD [facility] [address] [facility], [address] [place], [place] [id number] Social History Tobacco Use Types Packs/Day Years [...] documented as of this encounter Care Teams Marina Sales And Service Supervisor Relationship Specialty Start Date End Date Margie Lopez MD [address] [place] [address] PCP - General Family Practice 06/29/22 documented as of this encounter
--- OUTSIDE RECORDS SUMMARY | 2024-07-16 08:44 | XMS_ITS | Encounter Summary ---
Author Organization [facility] [address], [place] [address] Care Team Providers Care Surface Plate Inspector Name Role Phone Margie Lopez MD Primary Care Provider [phone] Encounter Details Date Type Department Care Team (Latest Contact Info) Description 01/22/2013 Correspondence TMD at [address] [id number] Missy Salmeron DDS, [place] [address] [place], [place] [id number] MED EQUIPMENT PROOF OF DELIVERY Social History Tobacco Use Types Packs/Day Years Used Date Smoking Tobacco: Never Alcohol Use Standard Drinks/Week Comments No 0 (1 standard drink = 0.6 oz pur e alcohol) Comments No Sex and Gender Information Value Date Recorded Sex Assigned at Not on file Legal Sex Female 3:32 AM CDT Gender Identity Not on file Sexual Orientation Not on file documented as of this encounter Progress Notes * Missy Salmeron DDS - 01/22/2013 12:00 AM CDT STAP[employer]ER WELT documented in this encounter Plan of Treatment Not on file documented as of this encounter Visit Diagnoses Not on filedocumented in this encounter Additional Health Concerns Infection Onset Date Last Indicated Resolved Time R/O COVID19 06/28/2022 06/28/2022 06/28/2022 8:55 AM CDT documented as of this encounter Care Teams Surface Plate Inspector Relationship Specialty Start Date End Date Margie Lopez MD [address] [place] [address] PCP - General Family Practice 06/29/22 documented as of this encounter
--- OUTSIDE RECORDS SUMMARY | 2024-07-16 08:44 | XMS_ITS | Encounter Summary ---
Author Organization [facility] Address [address] [place] [address] Care Team Providers Care Statistical Secretary Name Role Phone Margie Lopez MD Primary Care Provider [phone] Encounter Details Date Type Department Care Team (Late st Contact Info) Description 10/26/2011 Consent for Procedure/Treatme nt [facility] Department INFORMED CONSENT RECORD Social History Tobacco Use Types Packs/Day Years [...] as of this encounter Progress Notes * [facility], PROVIDER - 10/26/2011 12:00 AM CDT documented in this encounter Plan of Treatment Not on file documented as of this encounter Visit Diagnoses Not on filedocumented in this encounter Additional Health Concerns Infection Onset Date Last Indicated Resolved Time R/O COVID19 06/28/2022 06/28/2022 06/28/2022 8:55 AM CDT documented as of this encounter Care Teams Statistical Secretary Relationship Specialty Start Date End Date Margie Lopez MD [address] [place] [address] PCP - General Family Practice 06/29/22 documented as of this encounter
--- OUTSIDE RECORDS SUMMARY | 2024-07-16 08:44 | XMS_ITS | Encounter Summary ---
Author Organization [facility] Address [address] [address] Care Team Providers Care Manager Casino Name Role Phone Margie Lopez MD Primary Care Provider [phone] Encounter Details Date Type Department Care Team (Latest Contact Info) Description 02/15/1997 Orders Only Leslie Hoyos MD [address] [place] [address] Social History Tobacco Use Types Packs/Day Years [...] documented as of this encounter Care Teams Manager Casino Relationship Specialty Start Date End Date Margie Lopez MD [address] [place] [address] PCP - General Family Practice 06/29/22 documented as of this encounter
--- OUTSIDE RECORDS SUMMARY | 2024-07-16 08:44 | XMS_ITS | Encounter Summary ---
Author Organization [facility] Address [address] [place] [address] Care Team Providers Care Supervisor Stitching Department Name Role Phone Margie Lopez MD Primary Care Provider [phone] Encounter Details Date Type Department Care Team (Late st Contact Info) Description 10/20/2016 Refill Order [facility] Internal Medicine [place] [address] [place], [place] [phone] Annamarie Ann MD [address] [place], [place] [address] Social History Tobacco Use Types Packs/Day Years [...] Nursing Notes * Massiel Shah CMA - 10/22/2016 8:37 AM CDT Letter sent to pt. Massiel Shah CMA 10/22/2016, 8:37 AM documented in this encounter Plan of [...] documented as of this encounter Care Teams Supervisor Stitching Department Relationship Specialty Start Date End Date Margie Lopez MD [address] [place] [address] PCP - General Family Practice 06/29/22 documented as of this encounter
--- OUTSIDE RECORDS SUMMARY | 2024-07-16 08:44 | XMS_ITS | Encounter Summary ---
Author [facility] Address [address] [place] [address] Care Team Providers Care Didactic Instructor Name Role Phone Margie Lopez MD Primary Care Provider [phone] Encounter Details Date Type Department Care Team (Latest Contact Info) Description 04/24/1995 Orders Only Charissa Coleman MD [address] [place] [address] Social History Tobacco Use Types Packs/Day Years [...] documented as of this encounter Care Teams Didactic Instructor Relationship Specialty Start Date End Date Margie Lopez MD [address] [place] [address] PCP - General Family Practice 06/29/22 documented as of this encounter
--- OUTSIDE RECORDS SUMMARY | 2024-07-16 08:44 | XMS_ITS | Encounter Summary ---
Author Organization [facility] Address [address] [address] Care Team Providers Care Structural Layout Worker Name Role Phone Margie Lopez MD Primary Care Provider [phone] Encounter Details Date Type Department Care Team (Latest Contact Info) Description 02/24/1996 Orders Only Adam Alvarez MD [address] [place] [address] Social History Tobacco Use Types Packs/Day Years [...] documented as of this encounter Care Teams Structural Layout Worker Relationship Specialty Start Date End Date Margie Lopez MD [address] [place] [address] PCP - General Family Practice 06/29/22 documented as of this encounter
--- OUTSIDE RECORDS SUMMARY | 2024-07-16 08:44 | XMS_ITS | Encounter Summary ---
Author Organization [facility] Address [address], [place] [address] Care Team Providers Care Physician Specialist Name Role Phone Margie Lopez MD Primary Care Provider [phone] Encounter Details Date Type Department Care Team (Late st Contact Info) Description 01/06/2014 Scanned History External to Transferred Record, Provider [facility] Social History Tobacco Use Types Packs/Day Years [...] documented as of this encounter Care Teams Physician Specialist Relationship Specialty Start Date End Date Margie Lopez MD [address] [place] [address] PCP - General Family Practice 06/29/22 documented as of this encounter
--- OUTSIDE RECORDS SUMMARY | 2024-07-16 08:44 | XMS_ITS | Encounter Summary ---
Author Organization [facility] Address [address] [address] Care Team Providers Care Urgent Care Technician Name Role Phone Margie Lopez MD Primary Care Provider [phone] Encounter Details Date Type Department Care Team (Latest Contact Info) Description 09/17/1997 Orders Only Cherelle Joya MD [facility] [address] [facility] [address] [place], [place] [id number] Social History Tobacco Use Types Packs/Day Years [...] documented as of this encounter Care Teams Urgent Care Technician Relationship Specialty Start Date End Date Margie Lopez MD [address] [place] [address] PCP - General Family Practice 06/29/22 documented as of this encounter
--- OUTSIDE RECORDS SUMMARY | 2024-07-16 08:44 | XMS_ITS | Encounter Summary ---
Author Organization [facility] Address [address], [place] [address] Care Team Providers Care Bss Solution Architect Name Role Phone Margie Lopez MD Primary Care Provider [phone] Encounter Details Date Type Department Care Team ([facility] Contact Info) Description 08/01/2012 Correspondence External to [facility], Provider LETTER TO INS PROVIDER Social History Tobacco Use Types Packs/Day Years [...] as of this encounter Progress Notes * [facility], Provider - 08/01/2012 12:00 AM CDT documented in this encounter Plan of Treatment Not on file documented as of this encounter Visit Diagnoses Not on filedocumented in this encounter Additional Health Concerns Infection Onset Date Last Indicated Resolved Time R/O COVID19 06/28/2022 06/28/2022 06/28/2022 8:55 AM CDT documented as of this encounter Care Teams Bss Solution Architect Relationship Specialty Start Date End Date Margie Lopez MD [address] [place] [address] PCP - General Family Practice 06/29/22 documented as of this encounter
--- OUTSIDE RECORDS SUMMARY | 2024-07-16 08:44 | XMS_ITS | Encounter Summary ---
Author Organization [facility] Address [address] [place] [address] Care Team Providers Care Team Supervisor Name Role Phone Margie Lopez MD Primary Care Provider [phone] Encounter Details Date Type Department Care Team (Late st Contact Info) Description 11/03/2015 Same Day Surgery Ophthalmology at [facility] [address] [phone] Janette Shea MD [address] [address] Social History Tobacco Use Types Packs/Day Years [...] documented as of this encounter Care Teams Team Supervisor Relationship Specialty Start Date End Date Margie Lopez MD [address] [place] [address] PCP - General Family Practice 06/29/22 documented as of this encounter
--- OUTSIDE RECORDS SUMMARY | 2024-07-16 08:44 | XMS_ITS | Encounter Summary ---
[facility] Organization [facility] Address [address] [address] Care Team Providers Care Immunologist Name Role Phone Margie Lopez MD Primary Care Provider [phone] Encounter Details Date Type Department Care Team (Latest Contact Info) Description 08/23/1998 Orders Only Leslie Hoyos MD [address] [place] [address] Social History Tobacco Use Types Packs/Day Years [...] documented as of this encounter Care Teams Immunologist Relationship Specialty Start Date End Date Margie Lopez MD [address] [place] [address] PCP - General Family Practice 06/29/22 documented as of this encounter
--- OUTSIDE RECORDS SUMMARY | 2024-07-16 08:44 | XMS_ITS | Encounter Summary ---
Author Organization [facility] Address [address] [place] [address] Care Team Providers Care E/M Engineer Name Role Phone Mragie Lopez MD Primary Care Provider [phone] Encounter Details Date Type Department Care Team (Latest Contact Info) Description 06/23/1996 Orders Only Chinyere Olivera MD [address] [place] [address] Social History Tobacco Use Types Packs/Day Years [...] documented as of this encounter Care Teams E/M Engineer Relationship Specialty Start Date End Date Margie Lopez MD [address] [place] [address] PCP - General Family Practice 06/29/22 documented as of this encounter
--- OUTSIDE RECORDS SUMMARY | 2024-07-16 08:44 | XMS_ITS | Encounter Summary ---
Author Organization [facility] Address [address], [place] [address] Care Team Providers Care Pulp Operator Name Role Phone Margie Lopez MD Primary Care Provider [phone] Encounter Details Date Type Department Care Team (Latest Contact Info) Description 03/28/1994 Orders Only Gerardo Oneal MD [address] [place] [address] Social History Tobacco Use Types Packs/Day Years [...] documented as of this encounter Care Teams Pulp Operator Relationship Specialty Start Date End Date Margie Lopez MD [address] [place] [address] PCP - General Family Practice 06/29/22 documented as of this encounter
--- OUTSIDE RECORDS SUMMARY | 2024-07-16 08:44 | XMS_ITS | Encounter Summary ---
Author Organization [facility] Address [address] [place] [address] Care Team Providers Care Chief Crew Scheduler Name Role Phone Jamaal Tracey Primary Care Provider [phone] Dayana Wilcox APRN, CNP Primary Care Provider Annamarie Ann MD Primary Care Provider Annamarie Ann MD Primary Care Provider [phone] Annamarie Ann MD Unavailable [phone] Dayana Wilcox APRN [employer] Unavailable [phone] Dayana Wilcox APRN, CNP Unavailable [phone] [facility] Primary Care Provider No Ref-Primary, Physician Primary Care Provider Kaleb Sun MD Unavailable [phone] Kaleb Sun MD Primary Care Provider + Encounter Details Date Type Department Care Team (Late st Contact Info) Description 07/09/2012 Office Visit-[facility] [address] [place] [phone] Giselle Lao MD [facility] [place] [id number] [address] [facility] [address] [place] [address] Social History Tobacco Use Types Packs/Day Years Used Date Smoking Tobacco: Never Assessed Comments Unknown Sex and Gender Information Value Date Recorded Sex Assigned at Not on file 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 [id number] DATE: 07/09/2012 BARBARA MARTINEZ DATE OF : 1935 AGE: [age] years old Referring Physician: JAMAAL TRACEY Referring Clinic: [facility] CURRENT DIAGNOSES 1. - Shortness of Breath, 786.05 2. - Chest Pain-unspecified, 786.50 ALLERGIES NKDA MEDICATIONS (prior to changes made today) 1. Aggrenox 200-25 mg capsule, ER multiphase 12 hr, 1 p.o. twice daily 2. amlodipine 10 mg tablet, 1 p.o. daily 3. Celexa 20 mg tablet, 1 p.o. daily 4. Detrol LA 4 mg capsule,extended release 24hr, 1 p.o. daily 5. furosemide 20 mg tablet, 2 p.o. daily. 6. Glucosamine Complex-MSM capsule, 1 p.o. daily 7. metoprolol tartrate 50 mg tablet, 1 p.o. twice daily 8. Nasonex 50 mcg/actuation Pilgrim, Non-Aerosol, Take as Directed 9. omeprazole 40 mg capsule,delayed release(DR/EC), 1 p.o. daily 10. potassium chloride 20 mEq tablet,ER particles/crystals, 1 p.o. daily 11. simvastatin 40 mg tablet, 1 p.o. daily at HS CHIEF COMPLAINTS Cardiac Assessment and Review test results-EKG HISTORY OF PRESENT ILLNESS CHIEF COMPLAINT: New patient evaluation for exertional dyspnea. Ms. Martinez is a pleasant 77-year-old lady without a prior cardiac history. She complains of shortness of breath on exertion. She is quite adamant that this is longstanding and unchanged in pattern, frequency, or severity. She denies chest pain. On further questioning based on her referral history and physical, she does admit that she will get a tight sensation in her chest with exertion. She states that she mainly notices the breathing and thinks that this might be associated with that. The shortness of breath and chest tightness stop immediately when she stops to rest. She denies PND, orthopnea, palpitations, presyncope, syncope, lightheadedness, or significant pedaledema at this point. She said that she can get spells of dizziness that she relates to as imbalance rather than lightheadedness. Again, she has had no change in pattern, frequency, or severity of any of these symptoms. She does relate that 20 years ago when she was being seen at the [facility] she may have had pulmonary function tests and was put on three different inhalers. She was told that she had a limited percentage of her function, but does not recall any further details. She does see Dr. Marquez for sleep apnea andwas recommended to use CPAP. She states that she has not had any sort of pulmonary function tests anytime recently. 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 She has a history of TIAs in the past on Aggrenox. She states that these are remote. Apparently, she was evaluated recently for slurred speech. She states quite adamantly that her speech can become slurred when she is excessively tired. This is quite consistent. PAST HISTORY FAMILY HISTORY: Father - Age 56, DC; Mother - Age 92, CVA, unknown type; CARDIAC RISK FACTORS Tobacco Abuse: negative; Family History of Heart Disease: positive male<GT>55 y/o, dad mi 56;Hyperlipidemia: negative; Hypertension: positive; Diabetes Mellitus: negative; Prior History of Heart Disease: negative SOCIAL HISTORY Alcohol Use - denies drinking; Smoking - never smoked; Diet - regular diet without modifications and caffeine use-1-2 per day; Exercise - no regular exercise; Seat Belt Use - always; Sexual Activity - did not discuss sexual history; REVIEW OF SYSTEMS GENERAL denies recent weight loss, weight gain, fever or chills or change in exercise tolerance. INTEGUMENTARY denies any change in hair or nails, rashes, or skin lesions. EYES denies diplopia, history of glaucoma or visual field defects. EARS, NOSE, THROAT, MOUTH denies any hearing loss, epistaxis, hoarseness or difficulty speaking. RESPIRATORY denies dyspnea, snoring, cough, wheezing or hemoptysis. CARDIOVASCULAR dizziness, light headedness ABDOMINAL denies change in bowel habits, dyspepsia, ulcer disease, hematochezia or melena. MUSCULOSKELETAL denies any history of arthritic symptoms or back problems. NEUROLOGICAL denies any history of recurrent headaches, strokes, TIA, or seizure disorder. PSYCHIATRIC depression controlled with medication ENDOCRINE denies any history of thyroid disease or diabetes mellitus. HEMATOLOGICAL/IMMUNOLOGIC denies any food allergies, seasonal allergies, bleeding disorders or lymphadenopathy. PHYSICAL EXAMINATION VITAL SIGNS: Blood Pressure: 122/68Sitting, Right arm, regular cuff Pulse- 79.00/min. Weight- 179.20 lbs. Height- 61 BMI Measurement: 34 CONSTITUTIONAL cooperative, alert and oriented,well developed, well nourished, in no acute distress. SKIN warm and dry to touch, no apparent skin lesions, or masses noted. HEAD normocephalic, atraumatic EYES Pupils equal and round, conjunctivae and lids unremarkable, sclera white, no xanthalasma ENT no pallor or cyanosis, dentition good NECK carotid pulses are full and equal bilaterally, JVP normal, no carotid bruit, no thyromegaly CHEST normal symmetry, no tenderness to palpation, normal respiratory excursion, no intercostal retraction, no use of accessory muscles, clear to auscultation and percussion. CARDIAC regular rhythm, S1 normal, S2 normal, No S3 or S4, Apical impulse not displaced, no murmurs, gallops or rubs detected. ABDOMEN abdomen soft, bowel sounds normoactive, no masses, no hepatosplenomegaly, non- tender, no bruits PERIPHERAL PULSES pulses full and equal in all extremities, no bruits auscultated. EXTREMITIES & BACK trace pedal edema left, significant varicosities L<GT>R NEUROLOGICAL no gross motor deficits noted, affect appropriate, oriented to time, person and place. MEDICATIONS UPDATED/STARTED TODAY: Aggrenox 200-25 mg capsule, ER multiphase 12 hr, 1 p.o. twice daily, #0 (Zero) amlodipine 10 mg tablet, 1 p.o. daily, #0 (Zero) Celexa 20 mg tablet, 1 p.o. daily, #0 (Zero) Detrol LA 4 mg capsule,extended release 24hr, 1 p.o. daily, #0 (Zero) furosemide 20 mg tablet, 2 p.o. daily., #0 (Zero) Glucosamine Complex-MSM capsule, 1 p.o. daily, #0 (Zero) metoprolol tartrate 50 mg tablet, 1 p.o. twice daily, #0 (Zero) Nasonex 50 mcg/actuation Pilgrim, Non-Aerosol, Take as Directed, #0 (Zero) omeprazole 40 mg capsule,delayed release(DR/EC), 1 p.o. daily, #0 (Zero) potassium chloride 20 mEq tablet,ER particles/crystals, 1 p.o. daily, #0 (Zero) simvastatin 40 mg tablet, 1 p.o. daily at HS, #0 (Zero) IMPRESSIONS/PLAN This is a very pleasant 77-year-old lady with what she describes as stable exertional dyspnea perhaps associated with some tightness in her chest. We have discussed in great length the possibly courses of management including medical management, noninvasive stress testing, and cardiac catheterization. I am reassured by the stability of her symptoms. I have also cautioned her that if they should change in any way, she needs to contact us immediately or call 911 to be taken to the Emergency Room. On prolonged discussion of the different options, risks, and benefits, the patient and her daughterdo prefer to try a nuclear stress test to evaluate the extent of ischemia. She has some renal insufficiency, albeit mild. They may consider medical management with a small territory at risk versus invasive management with a more substantial area. I would like to check an echocardiogram for structural evaluation and valvular evaluation as well as assessment of pressures and to evaluate for causes of her dyspnea. We will also check pulmonary function tests. Review of her last hemoglobin was normal earlier this month. Due to her ongoing risk factor modification, we can try to get lipids from her primary physician. Considering her history of impaired fasting blood sugar and multiple risk factors, she should have a goal LDL likely of 70 or less. We will continue her on her current medical regimen. I will see her back with the results of her tests or sooner as needed. It was a pleasure being involved in this pleasant lady's care. Total time was 45 minutes and 40 minutes was spent in coordination of care and counseling. TODAYS ORDERS 1. 2D, color flow, doppler Today 2. Pulmonary Function Test Schedule at [facility] 3. Return Visit me or yajaira or janet 1 week 4. Lexiscan Infusion 2 Days, able to convert to treadmill stress if pt able to exercise Giselle Lao M.D. 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 documented as of this encounter Care Teams Chief Crew Scheduler Relationship Specialty Start Date End Date Jamaal Tracey [facility] [address] [facility] [place] [address] PCP - General 07/09/12 12/09/17 Dayana Wilcox APRN [employer] [address] [place] [address] PCP - General Family Practice 12/10/17 12/08/18 Annamarie Ann MD [address] [place] [address] PCP - General Internal Medicine 12/09/18 03/12/21 Annamarie Ann MD [address] [place] [address] PCP - General Internal Medicine 03/13/21 04/11/21 Dayana Wilcox APRN [employer] [address] [address] PCP - Assigned PCP 12/23/15 05/27/18 [facility], [address] [id number] PCP - General 04/12/21 12/10/22 No Ref-Primary, Physician PCP - General 12/11/22 01/02/24 Kaleb Sun MD [address] [place] [address] PCP - General Internal Medicine 01/03/24 Annamarie Ann MD [address] [facility] [address] Internal Medicine 03/13/21 Dayana Wilcox APRN [facility] [address] [place] [address] Assigned PCP 12/23/15 01/10/19 Kaleb Sun MD [address] [place] [address] Assigned PCP 12/22/22 documented as of this encounter
--- OUTSIDE RECORDS SUMMARY | 2024-07-16 08:44 | XMS_ITS | Encounter Summary ---
Author Organization [facility] [address], [place] [address] Care Team Providers Care Shorer Name Role Phone Margie Lopez MD Primary Care Provider [phone] Encounter Details Date Type Department Care Team (Latest Contact Info) Description 12/11/2012 Correspondence TMD at [address] [phone] Missy Salmeron DDS, [place] [address] [place], [place] [id number] SOMNODENT FLEX ORDER Social History Tobacco Use Types Packs/Day Years [...] Progress Notes * Missy Salmeron DDS - 12/11/2012 12:00 AM CDT documented in this encounter Plan of Treatment Not on file documented as of this encounter Visit Diagnoses Not on filedocumented in this encounter Additional Health Concerns Infection Onset Date Last Indicated Resolved Time R/O COVID19 06/28/2022 06/28/2022 06/28/2022 8:55 AM CDT documented as of this encounter Care Teams Shorer Relationship Specialty Start Date End Date Margie Lopez MD [address] [place] [address] PCP - General Family Practice 06/29/22 documented as of this encounter
--- OUTSIDE RECORDS SUMMARY | 2024-07-16 08:44 | XMS_ITS | Encounter Summary ---
Author Organization [facility] Address [address], [place] [address] Care Team Providers Care Detail Maker And Fitter Name Role Phone Margie Lopez MD Primary Care Provider [phone] Encounter Details Date Type Department Care Team (Latest Contact Info) Description 11/26/1995 [facility] [address] [id number] Social History Tobacco Use Types Packs/Day Years [...] documented as of this encounter Care Teams Detail Maker And Fitter Relationship Specialty Start Date End Date Margie Lopez MD [address] [place] [address] PCP - General Family Practice 06/29/22 documented as of this encounter
--- OUTSIDE RECORDS SUMMARY | 2024-07-16 08:44 | XMS_ITS | Encounter Summary ---
Author Organization [facility] Address [address], [place] [address] Care Team Providers Care Beam Sealer Name Role Phone Margie Lopez MD Primary Care Provider [phone] Encounter Details Date Type Department Care Team ([facility] Contact Info) Description 12/11/2012 Correspondence None No Primary/Referring, Phy AUTH OF SERVICE REPORT Social History Tobacco Use Types Packs/Day Years [...] as of this encounter Progress Notes * No Primary/Referring, Phy - 12/11/2012 12:00 AM CDT documented in this encounter Plan of Treatment Not on file documented as of this encounter Visit Diagnoses Not on filedocumented in this encounter Additional Health Concerns Infection Onset Date Last Indicated Resolved Time R/O COVID19 06/28/2022 06/28/2022 06/28/2022 8:55 AM CDT documented as of this encounter Care Teams Beam Sealer Relationship Specialty Start Date End Date Margie Lopez MD [address] [place] [address] PCP - General Family Practice 06/29/22 documented as of this encounter
--- OUTSIDE RECORDS SUMMARY | 2024-07-16 08:44 | XMS_ITS | Encounter Summary ---
Author Organization [facility] Address [address], [place] [address] Care Team Providers Care Security Inspector Name Role Phone Margie Lopez MD Primary Care Provider [phone] Encounter Details Date Type Department Care Team (Latest Contact Info) Description 05/26/1996 Orders Only [facility] Social History Tobacco Use Types Packs/Day Years [...] documented as of this encounter Care Teams Security Inspector Relationship Specialty Start Date End Date Margie Lopez MD [address] [place] [address] PCP - General Family Practice 06/29/22 documented as of this encounter
--- OUTSIDE RECORDS SUMMARY | 2024-07-16 08:44 | XMS_ITS | Encounter Summary ---
Author Organization [place] Address [address] [place] [address] Care Team Providers Care Senior Game Designer Name Role Phone Jamaal Tracey Primary Care Provider [phone] Dayana Wilcox APRN, CNP Primary Care Provider Annamarie Ann MD Primary Care Provider [phone] Annamarie Ann MD Primary Care Provider [phone] Annamarie Ann MD Unavailable [phone] Dayana Wilcox APRN BURRER OPERATOR Unavailable [phone] Dayana Wilcox APRN, CNP Unavailable [phone] [facility] Primary Care Provider No Ref-Primary, Physician Primary Care Provider Kaleb Sun MD Unavailable [phone] Kaleb Sun MD Primary Care Provider + Encounter Details Date Type Department Care Team (Late st Contact Info) Description 07/28/2012 Office Visit-[facility] Heart [address] [place] [id number] Shea Perez PA-C [address] [place] [address] Social History Tobacco Use Types Packs/Day Years Used Date Smoking Tobacco: Never Assessed Comments Unknown Sex and Gender Information Value Date Recorded Sex Assigned at Not on file Legal Sex Female 3:21 AM 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 - Shortness of Breath, 786.05 2. - Chest Pain-unspecified, 786.50 3. Screening For Other And Unspecified Cardiovascular Conditions, V81.2 ALLERGIES NKDA MEDICATIONS (prior to changes made [...] p.o. twice daily 8. Nasonex 50 mcg/actuation Loving, Non-Aerosol, Take as Directed 9. omeprazole 40 mg capsule,delayed release(DR/EC), 1 p.o. daily 10. potassium chloride 20 mEq tablet,ER particles/crystals, 1 p.o. daily 11. simvastatin 40 mg tablet, 1 p.o. daily at HS CHIEF COMPLAINTS Followup of - Shortness of Breath HISTORY OF PRESENT ILLNESS: I had the pleasure of meeting Mrs. Samuels today when she came accompanied by her daughter for followup of her recent test results. She is a pleasant 77-year-old woman who saw Dr. Lao in consultation on 07/09/2012. At that time, she had been referred for issues with chronic shortness of breath/dyspnea on exertion and questionable chest tightness. She has a history of obstructive sleep apnea on CPAP therapy, hypertension, hyperlipidemia and impaired fasting glucose. She also has a history of TIA and has been on Aggrenox. Dr. Lao noted that her symptoms had not changed for quite some time, and the patient herself did not seem terribly limited by this. She therefore ordered an echocardiogram, stress test andpulmonary function test. She is now back for the results. Echocardiogram done on 07/23/2012 showed a normal ejection fraction at 60 to 65% with grade I diastolic dysfunction. She had normal right ventricular systolic function/pressures and no evidence of effusion or valvular abnormalities. Her stress test done the same day (Lexiscan myocardial perfusion) showed no evidence of ischemia with a normal ejection fraction. Her PFTs, also done the same day, indicated that while the lung volumes were noted to be within normal limits, the diffusion was moderately reduced. The flow volume loop was abnormal and flattened both during inspiration and expiration, which was suggestive of a fixed airway obstruction. She has since been set up to see ear, nose and throat and actually has an appointment with Dr. Olivares tomorrow in [place]. Laboratory testing on 07/23/2012 showed a hemoglobin of 13.1. This was previously 12.9 back in June. PAST HISTORY Past Medical Illnesses: hyperlipidemia, hypertension, ischemic coliis, diverticulosis,, Osteopenia, multifocal subcortical infarcts, impaired fasting blood glucose Surgeries/Procedures - General: hysterectomy-total, vein stripping-right leg, vag hyst, cystocoele repair Cardiology Procedures-NonInvasive: echocardiogram Jun 2012, myocardial perfusion (Nuc) Jun 2012 Pulmonary Testing: PFTs/DLCO July 2012 PMHx Echo Results: = normal LVF,LVEF 60-65%,grade 1 ventricular diastolic dysfunction, no atrial shunt,trace to mild mitral regurgitation Left Ventricular Ejection Fraction: EF<GT>55% by Echo -Jun 2012, EF<GT>55% by nuclear study -Jun 2012 Nuclear Results: 07-23-2012= normal LV perfusion-no ischemia LVEF of 69% documented via nuclear study on 07/23/2012 FAMILY HISTORY: Father - Age 56, NE; Mother - Age 92, CVA, unknown type; [...] discuss sexual history; REVIEW OF SYSTEMS GENERAL weight loss, 1 lb from 07-23 INTEGUMENTARY denies any change in hair or nails, rashes, or skin lesions. EYES denies diplopia, history of glaucoma or visual field defects. EARS, NOSE, THROAT, MOUTH denies any hearing loss, epistaxis, hoarseness or difficulty speaking. RESPIRATORY dyspnea with exertion CARDIOVASCULAR negative for palpitations, chest pain, orthopnea, PND, peripheral edema, syncope or claudication. ABDOMINAL abdominal pain MUSCULOSKELETAL denies any history of arthritic symptoms or back problems. NEUROLOGICAL denies any history of recurrent headaches, strokes, TIA, or seizure disorder. PSYCHIATRIC depression controlled with medication ENDOCRINE denies any history of thyroid disease or diabetes mellitus. HEMATOLOGICAL/IMMUNOLOGIC denies any food allergies, seasonal allergies, bleeding disorders or lymphadenopathy. PHYSICAL EXAMINATION VITAL SIGNS: Blood Pressure: 124/78 Sitting, Left arm, large cuff Pulse- 72.00/min. Weight- 178.00 lbs. Height- 61 BMI Measurement: 33 CONSTITUTIONAL cooperative, alert and oriented,well developed, well [...] appropriate, oriented to time, person and place. ASSESSMENT/PLAN: 1. Shortness of breath. This certainly could be due to abnormalities seen on PFTs, and I am interested in what the ear, nose and throat physician has to say regarding this. She had no evidence of ischemia indicating fixed coronary disease as likely not a contributor to her symptoms. I do note that she does have some mild diastolic dysfunction, which certainly could contribute to exertional shortness of breath for which we would recommend tight management of hypertension. At this time, I will not make any medication changes as her blood pressure is under excellent control. She does remain on a moderate sized dose of furosemide with potassium supplementation. She certainly demonstrates no evidence of fluid overload at this time. II have made no formal follow-up plans with her. However, we would be happy to see her should her primary care physician request. 2. Abnormal PFTs. She is due to see an ear, nose and throat physician tomorrow. Further management will be done with her primary care physician, Dr. Tracey. 3. Hyperlipidemia. She is on simvastatin. LDL goal would be 70 to 100 mg/dL given her history of TIA and impaired fasting glucose. Management will be done through primary care. At this time, I have made no formal follow-up plans to see her; however, I would be happy to do so should she request. I did give her my card with my nurse's phone number on it should there be any questions. TODAYS ORDERS 1. F/U with MD sheba Felton, P.A. documented in this encounter Plan of Treatment Not on file documented as of this encounter Visit Diagnoses Not on filedocumented in this encounter Additional Health Concerns Infection Onset Date Last Indicated Resolved Time Rule Out COVID-19 03/13/2021 03/13/2021 03/13/2021 8:37 PM ENVIRONMENTAL ASSISTANT documented as of this encounter Care Teams Senior Game Designer Relationship Specialty Start Date End Date Jamaal Tracey [facility] [address] [place] [address] PCP - General 07/09/12 12/09/17 Dayana Wilcox APRN CNP [address] [place] [address] PCP - General Family Practice 12/10/17 12/08/18 Annamarie Ann MD [address] [place] [address] PCP - General Internal Medicine 12/09/18 03/12/21 Annamarie Ann MD [address] [address] PCP - General Internal Medicine 03/13/21 04/11/21 Dayana Wilcox APRN BURRER OPERATOR [address] [place] [place] [address] PCP - Assigned PCP 12/23/15 05/27/[address] [id number] PCP - General 04/12/21 12/10/22 No Ref-Primary, Physician PCP - General 12/11/22 01/02/24 Kaleb Sun MD [address] [place] [address] PCP - General Internal Medicine 01/03/24 Annamarie Ann MD [address] [place] [address] Internal Medicine 03/13/21 Dayana Wilcox APRN BURRER OPERATOR [address] [place] [address] Assigned PCP 12/23/15 01/10/19 Kaleb Sun MD [address] [place] [address] Assigned PCP 12/22/22 documented as of this encounter
--- OUTSIDE RECORDS SUMMARY | 2024-07-16 08:44 | XMS_ITS | Encounter Summary ---
Author Organization [facility] Address [address] [place] [address] Care Team Providers Care Psychological Stress Evaluator Name Role Phone Margie Lopez MD Primary Care Provider [phone] Encounter Details Date Type Department Care Team (Late st Contact Info) Description 04/20/2016 Refill Order [facility] Internal Medicine [place] [address] [place], [place] [id number] Annamarie Ann MD [address] [place], [place] [address] Social History Tobacco Use Types Packs/Day Years [...] Nursing Notes * Massiel Shah CMA - 04/20/2016 12:30 PM CST Letter sent to pt. Massiel Shah CMA 04/20/2016, 12:30 PM PER CASER documented in this encounter Plan of Treatment Not on file documented as of this encounter Results * TSH with Free T4 (if TSH Abnormal) (05/07/2016 4:40 PM WRAPPER CASER) TSH, with Reflex 2.59 0.35 - 4.94 uIU/ml [facility] 05/07/2016 4:40 PM WRAPPER CASER 05/07/2016 4:41 PM WRAPPER CASER Narrative [facility] - 05/07/2016 7:20 PM WRAPPER CASER Performed at [facility], [address] [place] [address] us Annamarie Ann MD LAB_1 Final Result [facility] [phone] documented in this encounter Visit Diagnoses Diagnosis Encounter for long-term (current) use of medications- Primary Encounter for long-term (current) use of other medications Encounter for long-term (current) use of medications Encounter for long-term (current) use of other medications documented in this encounter Additional Health Concerns Infection Onset Date Last Indicated Resolved Time R/O COVID19 06/28/2022 06/28/2022 06/28/2022 8:55 AM CDT documented as of this encounter Care Teams Psychological Stress Evaluator Relationship Specialty Start Date End Date Margie Lopez MD [address] [place] [address] PCP - General Family Practice 06/29/22 documented as of this encounter
--- OUTSIDE RECORDS SUMMARY | 2024-07-16 08:44 | XMS_ITS | Encounter Summary ---
[facility] Address [address], [place] [address] Care Team Providers Care Children'S Ministries Director Name Role Phone Margie Lopez MD Primary Care Provider [phone] Encounter Details Date Type Department Care Team (Latest Contact Info) Description 11/24/1996 [facility] [address] [address] Social History Tobacco Use Types Packs/Day Years [...] documented as of this encounter Care Teams Children'S Ministries Director Relationship Specialty Start Date End Date Margie Lopez MD [address] [place] [address] PCP - General Family Practice 06/29/22 documented as of this encounter
--- OUTSIDE RECORDS SUMMARY | 2024-07-16 08:44 | XMS_ITS | Encounter Summary ---
Author Organization [facility] Address [address], [place] [address] Care Team Providers Care Filer And Sander Name Role Phone Margie Lopez MD Primary Care Provider [phone] Encounter Details Date Type Department Care Team (Latest Contact Info) Description 07/22/1996 Orders Only Cherelle Joya MD [facility] [address] [facility], [address] [place], [place] [id number] Social History Tobacco Use Types Packs/Day Years [...] documented as of this encounter Care Teams Filer And Sander Relationship Specialty Start Date End Date Margie Lopez MD [address] [place] [address] PCP - General Family Practice 06/29/22 documented as of this encounter
--- OUTSIDE RECORDS SUMMARY | 2024-07-16 08:44 | XMS_ITS | Encounter Summary ---
Author Organization [facility] Address [address], [place] [address] Care Team Providers Care Supply Room Clerk Name Role Phone Margie Lopez MD Primary Care Provider [phone] Encounter Details Date Type Department Care Team (Latest Contact Info) Description 07/24/1999 Orders Only Leslie Hoyos MD [address] [place] [address] Social History Tobacco Use Types Packs/Day Years [...] documented as of this encounter Care Teams Supply Room Clerk Relationship Specialty Start Date End Date Margie Lopez MD [address] [place] [address] PCP - General Family Practice 06/29/22 documented as of this encounter
--- OUTSIDE RECORDS SUMMARY | 2024-07-16 08:44 | XMS_ITS | Encounter Summary ---
Author Organization [facility] Address [address] [address] Care Team Providers Care Ginning Operator Name Role Phone Margie Lopez MD Primary Care Provider [phone] Encounter Details Date Type Department Care Team (Latest Contact Info) Description 03/29/1998 Orders Only Nancy Gabriel MD [facility] [address] [place], [place] [address] Social History Tobacco Use Types Packs/Day Years [...] documented as of this encounter Care Teams Ginning Operator Relationship Specialty Start Date End Date Margie Lopez MD [address] [place] [address] PCP - General Family Practice 06/29/22 documented as of this encounter
--- OUTSIDE RECORDS SUMMARY | 2024-07-16 08:44 | XMS_ITS | Encounter Summary ---
Author Organization [facility] Address [address] [place] [address] Care Team Providers Care Fumigator And Sterilizer Name Role Phone Margie Lopez MD Primary Care Provider [phone] Encounter Details Date Type Department Care Team (Latest Contact Info) Description 11/24/1999 [facility] Nikki Pollack MD [facility] [address] [facility] [address] Social History Tobacco Use Types Packs/Day Years [...] as of this encounter Progress Notes * Nikki Pollack - 11/24/1999 12:00 AM CDTDIAGNOSIS: Ischemic colitis. DATE OF ADMISSION: 11/22/1999. DATE OF DISCHARGE: 11/24/1999. HOSPITAL COURSE: The patient is a 64-year-old, pleasant, white lady who was admitted with a lower GI bleed. She remained hemodynamically stable in the hospital. Colonoscopy the day after admission revealed some strictures and mucosal changes in the colon. The mucosal changes were consistent with the diagnosis of ischemic colitis. She did well during her stay and her hemoglobin stabilized. She will be discharged to home and advised to have a follow-up barium enema in a few months to assess the strictures and to assess the need for dilitation at that time. MEDICATIONS: Premarin, 0.625 mg po. q.d., Provera, 5 mg po. q.d., low dose aspirin, 81 mg po. q.d., and Metamucil, 1 tsp in liquid po. q.d. FOLLOW-UP: She has been advised to follow-up with her primary care physician in one to two weeks, at which time a CBC should be checked to assess her hemoglobin and hematocrit. She will also need a barium enema in about three months time to assess the strictures in her colon. cc: MD Adam Randhawa MD documented in this encounter Plan of Treatment Not on file documented as of this encounter Visit Diagnoses Not on filedocumented in this encounter Additional Health Concerns Infection Onset Date Last Indicated Resolved Time R/O COVID19 06/28/2022 06/28/2022 06/28/2022 8:55 AM CDT documented as of this encounter Care Teams Fumigator And Sterilizer Relationship Specialty Start Date End Date Margie Lopez MD [address] [place] [address] PCP - General Family Practice 06/29/22 documented as of this encounter
--- OUTSIDE RECORDS SUMMARY | 2024-07-16 08:45 | XMS_ITS | Encounter Summary ---
Author Organization [place] Address [address] [facility] [place] [address] Care Team Providers Care Machine Greaser Name Role Phone Annamarie Ann MD Primary Care Provider [phone] Annamarie Ann MD Unavailable [phone] [facility] Primary Care Provider No Ref-Primary, Physician Primary Care Provider Kaleb Sun MD Unavailable [phone] Kaleb Sun MD Primary Care Provider + Encounter Details Date Type Department Care Team (Late st Contact Info) Description 03/14/2021 Documentation Only INTERFACED REPORT Unknown, Provider Social History Tobacco Use Types Packs/Day Years Used Date Smoking Tobacco: Never Assessed Social Connection and Isolation Panel [NHANES] A nswer Date Recorded Frequency of Communication with Friends and Fami ly Not on file 01/02/2024 How often do you get togethe r with friends or relatives? Patient declined 01/02/2024 Attends Cheondoism Services Not on file 01/01 Active Member of Clubs or Organizations Not on f ile 01/02/2024 Attends Club or Organization Meetings Not on marcio e 01/02/2024 Marital Status Not on file 01/02/2024 PHQ-2 Answer Date Recorded PHQ-2 Score 3 12/13/2022 [facility] - Occupational Stress Questionnaire Answer Date [...] Date Recorded Do you have housing? 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 No / Unsure 12/13/2022 1:03 PM CDT documented as of this encounter Plan of Treatment Not on file documented as of this encounter Visit Diagnoses Not on filedocumented in this encounter Care Teams Machine Greaser Relationship Specialty Start Date End Date Annamarie Ann MD [address] [place] [address] PCP - General Internal Medicine 03/13/21 04/11/[address] [address] PCP - General 04/12/21 12/10/22 No Ref-Primary, Physician PCP - General 12/11/22 01/02/24 Kaleb Sun MD [address] [place] [address] PCP - General Internal Medicine 01/03/24 Annamarie Ann MD [address] [place] [address] Internal Medicine 03/13/21 Kaleb Sun MD [address] [place] [address] Assigned PCP 12/22/22 documented as of this encounter
--- OUTSIDE RECORDS SUMMARY | 2024-07-16 08:45 | XMS_ITS | Encounter Summary ---
Author Organization [place] Address [address] [facility] [place] [address] Care Team Providers Care Glass Rolling Machine Operator Name Role Phone Annamarie Ann MD Unavailable [phone] [facility] Primary Care Provider No Ref-Primary, Physician Primary Care Provider Kaleb Sun MD Unavailable [phone] Kaleb Sun MD Primary Care Provider + Encounter Details Date Type Department Care Team (Late st Contact Info) Description 04/13/2021 Documentation Only INTERFACED REPORT Unknown, Provider Social [...] friends or relatives? Patient declined 01/02/2024 Attends Mosque Services Not on file 01/01 Active Member of Clubs or Organizations Not on f ile 01/02/2024 Attends Club or Organization Meetings Not on marcio e 01/02/2024 Marital Status Not on file 01/02/2024 PHQ-2 Answer Date Recorded PHQ-2 Score 3 12/13/2022 [facility] - Occupational Stress [...] in an abandoned building, in an overnight long-term, or couch-surfing.) Yes 01/02/2024 Are you worried [...] on file Legal Sex Female 3:21 AM RADIO STATION MANAGER Gender Identity Not on file Sexual Orientation [...] on filedocumented in this encounter Care Teams Glass Rolling Machine Operator Relationship Specialty Start Date End Date [facility], [address] [address] PCP - General 04/12/21 12/10/22 No Ref-Primary, Physician PCP - General 12/11/22 01/02/24 Kaleb Sun MD [address] [place], [place] [address] PCP - General Internal Medicine 01/03/24 Annamarie Ann MD [address] [place], [place] [address] Internal Medicine 03/13/21 Kaleb Sun MD [address] [place], [place] [address] Assigned PCP 12/22/22 documented as of this encounter
--- OUTSIDE RECORDS SUMMARY | 2024-07-16 08:45 | XMS_ITS | Encounter Summary ---
Author Organization [place] Address [address] [place] [address] Care Team Providers Care Java Lead Architect Name Role Phone Annamarie Ann MD Unavailable [phone] Ref-Primary, Physician Primary Care Provider Kaleb Sun MD Unavailable [phone] Kaleb Sun MD Primary Care Provider + Reason for Visit * Reason Onset Date Comments MyChart Communication 06/22/2023 Encounter Details Date Type Department Care Team (Late st Contact Info) Description 06/22/2023 MyC Medical Advice [facility] [address] [place] [address] Kaleb Sun MD [address] [place] [address] MyChart Communication Social History Tobacco Use Types Packs/Day Years Used Date Smoking Tobacco: Never Smokeless Tobacco: Never Alcohol Use Standard Drinks/Week Comments No 0 (1 standard drink = 0.6 oz pur e alcohol) PHQ-2 Answer Date Recorded PHQ-2 Score 3 12/13/2022 Adolescent Education Answer Date Record ed Getting School Help Needed Not on file 12/14 Food Insecurity Answer Date Recorded Within the past 12 months, d id you worry that your food would run out before you got money to buy more? Patient refused 2022 Within the past 12 months, d id the food you bought just not last and you didn t have money to get more? Patient refused 12/13/2022 Housing Stability Answer Date Recorded Do you have housing? (Kle[place] g is defined as stable permanent housing and does not include staying outside in a car, in a tent, in an abandoned building, in an overnight fdc, or couch-surfing.) Yes 12/13/2022 Are you worried about losing your housing? No 12/13/2022 Financial Resource Strain Answer Date R ecorded Within the past 12 months, h ave you or your family members you live with been unable to get utilities (heat, electricity) when it was really needed? No 12/13/2022 Transportation Needs Answer Date Record ed Within the past 12 months, h as lack of transportation kept you from medical appointments, getting your medicines, non-medical meetings or appointments, work, or from getting things that you need? No 12/13/2022 Comments No Sex and Gender Information Value Date Recorded Sex Assigned at Not on file Legal Sex Female 3:21 AM PANEL EDGE SEALER Gender Identity Not on file Sexual Orientation Not on file documented as of this encounter Miscellaneous Notes * Telephone Encounter - Aida Galeano RN - 06/24/2023 8:25 AM CDT Sent [employer] message to patient. Luis Galeano, Licha Jimenez [place] 8:26 AM 06/24/2023 documented in this encounter Plan of Treatment Not on file documented as of this encounter Visit Diagnoses Not on filedocumented in this encounter Additional Health Concerns Assessment Noted Time PHQ-9 Depression Total Score: 10 023 1:11 PM CDT documented as of this encounter Care Teams Java Lead Architect Relationship Specialty Start Date End Date No Ref-Primary, Physician PCP - General 12/11/22 01/02/24 Kaleb Sun MD [address] [place] [address] PCP - General Internal Medicine 01/03/24 Annamarie Ann MD [address] [place] [address] Internal Medicine 03/13/21 Kaleb Sun MD [address] [place] [address] Assigned PCP 12/22/22 documented as of this encounter
[2024-07-16 09:40] LABS: Eosinophils Percent Auto 0.1 % (0.0-7.0); Hematocrit 35.9 % (33.0-51.0); Hemoglobin* 12.4 gm/dL (12.0-16.0); Immature Granulocytes Pct Auto 0.2 %; Lymphocytes Percent Auto 4.4 % (20-44); Mean Corpuscular HGB Conc 35 gm/dL (32-36); Mean Corpuscular Hemoglobin 33 pg (26-34); Mean Corpuscular Volume 94 fL (80-100); Monocytes Percent Auto 4.9 % (0.0-11.0); Neutrophils Percent Auto 90.4 % (42.0-72.0); Platelet Count* 141 K/uL (140-440); RDW Coefficient of Variation % 12.7 % (11.5-15.5); Red Blood Count 3.81 m/uL (4.00-5.20); White Blood Count* 14.05 K/uL (4.50-11.00)
[2024-07-16 09:44] LABS: Slide Review Reflex No
[2024-07-16 09:55] LABS: Albumin* 3.4 g/dL (3.3-5.0); Chloride* 107 mmol/L (96-114); Sodium* 142 mmol/L (135-149)
[2024-07-16 09:56] LABS: Potassium* 3.7 mmol/L (3.6-5.1)
[2024-07-16 09:58] LABS: Alanine Aminotransferase* 159 U/L (4-35); Alkaline Phosphatase* 132 U/L (40-150); Anion Gap 9 mEq/L (7-15); Aspartate Amino Transferase* 224 U/L (12-35); Blood Urea Nitrogen* 26 mg/dL (7-30); Carbon Dioxide* 26 mmol/L (20-32); Creatinine* 1.4 mg/dL (0.5-1.5); Est. Creatinine Clearance* 20.96; Estimated Glomerular Filt Rate 36 ml/min; Total Protein* 6.1 g/dL (6.0-8.3)
[2024-07-16 09:59] LABS: Calcium* 9.5 mg/dL (8.4-10.6); Glucose* 123 mg/dL (60-115)
[2024-07-16 10:10] LABS: Troponin I* 0.03 ng/mL (0.01-0.04)
--- NOTE | 2024-07-16 11:30 | CRLHL7_ITS ---
For Patients: As a result of the Century Cures Act, medical imaging exams and procedure reports are released immediately into your electronic medical record. You may view this report before your referring provider. If you have questions, please contact your health care provider. INDICATION: Abdominal Pain and Elevated Liver Enzymes COMPARISON: none TECHNIQUE: Real time diaz scale imaging and color Doppler analysis was performed of the right upper quadrant. FINDINGS: Liver echotexture is mildly coarsened. The IVC, aorta and pancreas are not well visualized due to body habitus. There is no evidence of ascites. Common bile duct measures up to 7.1 millimeters. Gallbladder wall measures 2.2 millimeters. There is lobular soft tissue density within the dependent gallbladder measuring up to approximately 1.5 x 2.7 cm. No internal vascularity. Portal vein is patent with antegrade flow. Right kidney measures 8.6 cm. No hydronephrosis. IMPRESSION: Abnormal gallbladder with lobular soft tissue density in the dependent lumen without abnormal vascularity most consistent with moderate layering sludge material. Common bile duct is prominent but could be normal for age. However, consider developing cholecystitis in the appropriate clinical setting. Mild hepatic steatosis/chronic liver disease without ascites or intrahepatic mass. Incomplete visualization of the pancreas. Dictated by Tonio Manzo MD @ 07/16/2024 1:04:01 PM (Electronically Signed)
--- NOTE | 2024-07-16 11:35 | ED_ITS ---
HPI - General Adult General Chief complaint: Neuro Symptoms/Altered Deficit Stated complaint: thinks she had a stroke Time Seen by Provider: 07/16/24 11:16 History of Present Illness HPI narrative: This 89-year-old female comes in with family members who report that she seems to be functioning differently over the past few days. She has dementia and does not express herself very well. Family member state that it seems like she sometimes is leaning to 1 side. They state that she has a history of stroke. They do not report any obvious unilateral weakness. There is a report of some discolored urine. Patient also has a history of gallstones and 1 that was obstructed in the past apparently that she passed into her GI tract without further intervention. The patient is a very poor historian and it is difficult to determine where she may be having symptoms. Related Data Home Medications ?Medication ?Instructions ?Recorded ?Confirmed albuterol sulfate 90 mcg/actuation 2 inhalation PRN 10/25/21 11/21/21 aerosol inhaler aspirin 81 mg tablet,delayed 81 mg PO DAILY 10/25/21 11/21/21 release cholecalciferol (vitamin D3) 10 10 mcg PO QDAY 10/25/21 11/21/21 mcg (400 unit) capsule multivitamin with iron (Daily 1 tab PO QDAY 10/25/21 11/21/21 Multiple Vitamins with Iron tablet) zoledronic acid 5 mg/100 mL in 5 IV .Once Every Year 11/21/21 11/21/21 mannitol 5 %-water intravenous piggybck Previous Rx's ?Medication ?Instructions ?Recorded amlodipine 5 mg tablet 5 mg PO DAILY #90 tabs 10/25/21 celecoxib 100 mg capsule (Celebrex) 100 mg PO DAILY #90 caps 10/25/21 levothyroxine 50 mcg tablet 50 mcg PO DAILY #90 tabs 10/25/21 metoprolol succinate 50 mg 50 mg PO DAILY #90 tabs 10/25/21 tablet,extended release 24 hr omeprazole 20 mg capsule,delayed 20 mg PO DAILY #90 caps 10/25/21 release quetiapine 50 mg tablet 50 mg PO .Bedtime #90 tabs 10/25/21 metoprolol succinate 100 mg 100 mg PO QDAY #90 tabs 01/29/22 tablet,extended release 24 hr donepezil 10 mg tablet 10 mg PO .Bedtime #90 tabs 02/28/22 simvastatin 20 mg tablet 20 mg PO .Bedtime #90 tabs 11/02/22 Allergies Allergy/AdvReac Type Severity Reaction Status Date / Time No Known Allergies Allergy Unverified 11/21/21 14:30 Review of Systems Narrative: Unable to obtain due to dementia. [facility] Medical History (Updated 07/16/24 @ 18:30 by Morris Serna MD) Urinary tract infection ?N39.0 - Urinary tract infection, site not specified (ICD-10) History of endometrial biopsy (05/26/12) ?Z92.89 - Personal history of other medical treatment (ICD-10) Dyspnea ?R06.00 - Dyspnea, unspecified (ICD-10) Surgical History (Updated 10/25/21 @ 10:55 by Margie Lopez MD) H/O vein stripping (05/26/12) ?Z98.890 - Other specified postprocedural states (ICD-10) History of hysterectomy (04/09/11) ?Z90.710 - Acquired absence of both cervix and uterus (ICD-10) Family History (Updated 09/05/21 @ 08:34 by Becky Portillo) Father Coronary artery disease Mother Stroke Social History (Updated 09/05/21 @ 08:34 by Becky Portillo) Narrative: Does not drink alcohol Does not use illicit drugs Nonsmoker Smoking Status: Never smoker Exam Narrative: Exam Narrative: Constitutional: Well-developed, well-nourished, no acute distress. HEENT: Normocephalic, atraumatic. Neck: Normal range of motion. Nontender. Supple. Heart: Regular. No murmurs. Normal rate. Intact distal pulses. Lungs: Clear to auscultation. No chest discomfort. No wheezes, rhonchi, or rales. Abdomen: Normal bowel sounds. She appears to have discomfort when palpating in her abdomen. Genitalia: Deferred. Back: No midline tenderness. Normal range of motion. Extremities: Normal range of motion. No injury. Skin: Intact. No rash. Warm. No erythema or pallor. Neurologic: No altered sensation. No unilateral weakness. Tongue is midline. Ciypej-zs-[id number] is normal. Brusher Machine strength is equal bilaterally. Her ability to speak is very limited but unchanged from her baseline. She was unable to cooperate for testing pronator drift or function of her lower extremities. Psychiatric: Significant dementia. Nursing notes and vitals signs are reviewed. Const: Vital Signs, click to edit/add: Vital Signs - 24 hr 07/16/24 09:11 Temperature 97.1 F L Pulse Rate [Pulse Oximeter] 72 Respiratory Rate 20 Blood Pressure [Ri ght Upper Arm] 133/64 Pulse Oximetry 93 Oxygen Delivery Me thod Room Air Course Vital Signs Vital signs: Initial Vital Signs Temperature 97.1 F L 07/16/24 09:11 Temperature Source Temporal Artery Scan 07/16/24 09:11 Pulse Rate 72 07/16/24 09:11 Respiratory Rate 20 07/16/24 09:11 Blood Pressure 133/64 07/16/24 09:11 Blood Pressure Mean 87 07/16/24 09:11 Pulse Oximetry 93 07/16/24 09:11 Oxygen Delivery Method Room Air 07/16/24 09:11 Vital Signs Temperature 97.1 F L 07/16/24 09:11 Pulse Rate 72 07/16/24 09:11 Respiratory Rate 20 07/16/24 09:11 Blood Pressure 133/64 07/16/24 09:11 Pulse Oximetry 93 07/16/24 09:11 Oxygen Delivery Method Room Air 07/16/24 09:11 Temperature 97.1 F L 07/16/24 09:11 Pulse Rate 72 07/16/24 09:11 Respiratory Rate 20 07/16/24 09:11 Blood Pressure 133/64 07/16/24 09:11 Pulse Oximetry 93 07/16/24 09:11 Oxygen Delivery Method Room Air 07/16/24 09:11 Medical Decision Making MDM Narrative Medical decision making narrative: This 89-year-old female is brought in by family members who feel that she is not doing well over the past couple days. She has significant dementia and is unable to verbalize her symptoms. I did obtain an ultrasound of her gallbladder as she has a history of gallbladder disease. It does show evidence of sludging. Her labs also returned with elevated liver enzymes and bilirubin. I did contact our surgeon on-call here and also a auto motor mechanic on-call who re commended MRCP. This was obtained and does show flow through the common bile duct and evidence of cholecystitis. Family members are stating that they do not feel that they want to take her through a surgery to remove her gallbladder. They also expressed interest in hospice care when ever that may be appropriate. I did speak with the hospitalist on-call recommending admission for IV antibiotic and symptomatic relief. This is an agreeable plan with Dr. Melendez. Lab Data Labs: Lab Results 07/16/24 07/16/24 Range/Units 09:31 12:46 WBC 14.05 H (4.50-11.00) K/uL RBC 3.81 L (4.00-5.20) m/uL Hgb 12.4 (12.0-16.0) gm/dL Hct 35.9 (33.0-51.0) % MCV 94 (80-100) fL MCH 33 (26-34) pg MCHC 35 (32-36) gm/dL RDW Coeff of Avni 12.7 (11.5-15.5) % Plt Count 141 (140-440) K/uL Neut % (Auto) 90.4 H (42.0-72.0) % Lymph % (Auto) 4.4 L (20-44) % Calhoun % (Auto) 4.9 (0.0-11.0) % Eos % (Auto) 0.1 (0.0-7.0) % Baso % (Auto) 0.0 (0.0-3.0) % Neut # (Auto) 12.70 H (1.7-7.0) K/uL Lymph # (Auto) 0.60 L (0.90-2.90) K/uL Calhoun # (Auto) 0.70 (0.00-0.90) K/UL Eos # (Auto) 0.00 (0.00-0.50) K/uL Baso # (Auto) 0.00 (0.00-0.30) K/uL Abs Immat Gran (auto) 0.00 (0.00-0.30) K/uL Imm/Tot Granulo (auto) 0.2 % Sodium 142 (135-149) mmol/L Potassium 3.7 (3.6-5.1) mmol/L Chloride 107 (96-114) mmol/L Carbon Dioxide 26 (20-32) mmol/L Anion Gap 9 (7-15) mEq/L BUN 26 (7-30) mg/dL Creatinine 1.4 (0.5-1.5) mg/dL Estimated Creat Clear 20.96 Estimated GFR 36 ml/min Glucose 123 H (60-115) mg/dL Calcium 9.5 (8.4-10.6) mg/dL Total Bilirubin 3.5 H (0.1-1.5) mg/dL Direct Bilirubin 2.0 H (0.0-0.5) mg/dL AST 224 H (12-35) U/L ALT 159 H (4-35) U/L Alkaline Phosphatase 132 (40-150) U/L Troponin I 0.03 (0.01-0.04) ng/mL Total Protein 6.1 (6.0-8.3) g/dL Albumin 3.4 (3.3-5.0) g/dL Lipase 19 L (23-300) U/L Urine Color [place] A (Yellow) Urine Appearance Cloudy A (Clear) Urine pH 5.5 (5.0-8.5) Ur Specific [place] 1.025 (1.000-1.030) Urine Protein 2+ A (Negative) Urine Glucose (UA) Trace A (Negative) Urine Ketones Trace A (Negative) Urine Blood 2+ A (Negative) Urine Nitrite Positive A (Negative) Urine Bilirubin 3+ A (Negative) Urine Urobilinogen >=8.0 A (0.2-1.0) Ur Leukocyte Esterase Trace A (Negative) Urine RBC 2-5 A (0-2) Urine WBC 10-25 A (0-5) Ur Squamous Epith Cells Moderate A (None-Few) Amorphous Sediment Many A (None) Urine Bacteria Many A (None) Imaging Data US - abdomen: Radiologist's impression: Abnormal gallbladder with lobular soft tissue density in the dependent lumen without abnormal vascularity most consistent with moderate layering sludge material. Common bile duct is prominent but could be normal for age. However, consider developing cholecystitis in the appropriate clinical setting. Mild hepatic steatosis/chronic liver disease without ascites or intrahepatic mass. Discharge Plan Discharge Clinical Impression: Acute cholecystitis Patient Disposition: Admitted As Observation Condition: Unchanged Prescriptions: No Action albuterol sulfate 90 mcg/actuation HFA aerosol inhaler 2 inhalation PRN multivitamin with iron [Daily Multiple Vitamins/Iron] Tablet 1 tab PO QDAY cholecalciferol (vitamin D3) 10 mcg (400 unit) capsule 10 mcg PO QDAY aspirin 81 mg tablet,delayed release (DR/EC) 81 mg PO DAILY celecoxib [Celebrex] 100 mg capsule 100 mg PO DAILY Qty: 90 4RF amlodipine 5 mg tablet 5 mg PO DAILY Qty: 90 4RF levothyroxine 50 mcg tablet 50 mcg PO DAILY Qty: 90 4RF metoprolol succinate 50 mg tablet extended release 24 hr 50 mg PO DAILY Qty: 90 4RF quetiapine 50 mg tablet 50 mg PO .Bedtime Qty: 90 4RF omeprazole 20 mg capsule,delayed release(DR/EC) 20 mg PO DAILY Qty: 90 4RF zoledronic qmyx-ncxuiaxj-qhxhv 5 mg/100 mL piggyback 5 IV .Once Every Year metoprolol succinate 100 mg tablet extended release 24 hr 100 mg PO QDAY Qty: 90 1RF donepezil 10 mg tablet 10 mg PO .Bedtime Qty: 90 2RF simvastatin 20 mg tablet 20 mg PO .Bedtime Qty: 90 0RF Follow Up/Referrals: Provider,Not a Local [Primary Care Provider] -
--- OUTSIDE RECORDS SUMMARY | 2024-07-16 11:47 | XMS_ITS | Encounter Summary ---
Author Organization [facility] Address [address] [place] [address] Care Team Providers Care Water Use Inspector Name Role Phone Margie Lopez MD Primary Care Provider [phone] Encounter Details Date Type Department Care Team (Latest Contact Info) Description 08/09/2015 Consent for Procedure/Treatm ent Ophthalmology at [address] [address] Janette Shea MD [address] [id number] CONSENT FOR PROCEDURE Social History Tobacco Use [...] documented as of this encounter Care Teams Water Use Inspector Relationship Specialty Start Date End Date Margie Lopez MD [address] [place] [address] PCP - General Family Practice 06/29/22 documented as of this encounter
--- OUTSIDE RECORDS SUMMARY | 2024-07-16 11:47 | XMS_ITS | Encounter Summary ---
Author Organization [facility] Address [address] [place] [address] Care Team Providers Care Treatment Coordinator Name Role Phone Margie Lopez MD Primary Care Provider [phone] Encounter Details Date Type Department Care Team (Late st Contact Info) Description 09/29/2015 Same Day Surgery Ophthalmology at [address] [phone] Janette Shea MD [address] [id number] Social History Tobacco Use Types Packs/Day Years [...] documented as of this encounter Care Teams Treatment Coordinator Relationship Specialty Start Date End Date Margie Lopez MD [address] [place] [address] PCP - General Family Practice 06/29/22 documented as of this encounter
--- OUTSIDE RECORDS SUMMARY | 2024-07-16 11:47 | XMS_ITS | Encounter Summary ---
Author Organization [facility] [address], [place] [address] Care Team Providers Care Crusher Plant Operator Name Role Phone Margie Lopez MD Primary Care Provider [phone] Encounter Details Date Type Department Care Team ([facility] st Contact Info) Description 07/27/2014 Correspondence [facility] [address] [place] [address] Mare Dunaway MD [address] [place] [address] ZOSTER VACCINE PAW Social History Tobacco [...] documented as of this encounter Care Teams Crusher Plant Operator Relationship Specialty Start Date End Date Margie Lopez MD [address] [place] [address] PCP - General Family Practice 06/29/22 documented as of this encounter
--- OUTSIDE RECORDS SUMMARY | 2024-07-16 11:47 | XMS_ITS | Encounter Summary ---
Author Organization [facility] [address], [place] [address] Care Team Providers Care Conservation Planner Name Role Phone Margie Lopez MD Primary Care Provider [phone] Encounter Details Date Type Department Care Team (Latest Contact Info) Description 01/22/2013 Correspondence TMD at [address] [phone] Missy Salmeron DDS, [place] [address] [place], [place] [phone] MED EQUIPMENT PROOF OF DELIVERY Social History [...] Salmeron DDS - 01/22/2013 12:00 AM CDT [place] GUIDE documented in this encounter Plan of Treatment Not on file documented as of this encounter Visit Diagnoses Not on filedocumented in this encounter Additional Health Concerns Infection Onset Date Last Indicated Resolved Time R/O COVID19 06/28/2022 06/28/2022 06/28/2022 8:55 AM CDT documented as of this encounter Care Teams Conservation Planner Relationship Specialty Start Date End Date Margie Lopez MD [address] [place] [address] PCP - General Family Practice 06/29/22 documented as of this encounter
--- OUTSIDE RECORDS SUMMARY | 2024-07-16 11:47 | XMS_ITS | Encounter Summary ---
Author [facility] Address [address] [place] [address] Care Team Providers Care Artist Manager Name Role Phone Margie Lopez MD Primary Care Provider [phone] Encounter Details Date Type Department Care Team (Latest Contact Info) Description 01/01/1995 Orders Only Charissa Coleman MD [address] [place] [address] Social History Tobacco Use Types Packs/Day Years [...] documented as of this encounter Care Teams Artist Manager Relationship Specialty Start Date End Date Margie Lopez MD [address] [place] [address] PCP - General Family Practice 06/29/22 documented as of this encounter
--- OUTSIDE RECORDS SUMMARY | 2024-07-16 11:47 | XMS_ITS | Encounter Summary ---
Author Organization [facility] Address [address] [place] [address] Care Team Providers Care Union Steward Name Role Phone Annamarie Ann MD Unavailable [phone] Kaleb Sun MD Unavailable [phone] Kaleb Sun MD Primary Care Provider + Reason for Visit * Reason Comments Medication Refill Encounter Details Date Type Department Care Team (Late st Contact Info) Description 06/14/[address] [place] [address] Kaleb Sun MD [address] [place], [place] [address] Medication Refill Social History Tobacco Use Types [...] friends or relatives? Patient declined 01/02/2024 Attends Mandaeism Services Not on file 01/01 Active Member of Clubs or Organizations Not on f ile 01/02/2024 Attends Club or Organization Meetings Not on marcio e 01/02/2024 Marital Status Not on file 01/02/2024 PHQ-2 Answer Date Recorded PHQ-2 Score 3 12/13/2022 [facility] - [...] in an overnight fdc, or couch-surfing.) Yes 01/02/2024 Are you worried [...] on file Legal Sex Female 3:21 AM CONCRETE TESTER Gender Identity Not on file Sexual Orientation Not on file documented as of this encounter Plan of Treatment Not on file documented as of this encounter Visit Diagnoses Diagnosis Pain Generalized pain documented in this encounter Additional Health Concerns Assessment Noted Time PHQ-9 Depression Total Score: 10 023 1:11 PM CDT documented as of this encounter Care Teams Union Steward Relationship Specialty Start Date End Date Kaleb Sun MD [address] [place] [address] PCP - General Internal Medicine 01/03/24 Annamarie Ann MD [address] [place], [place] [address] Internal Medicine 03/13/21 Kaleb Sun MD [address] [place] [address] Assigned PCP 12/22/22 documented as of this encounter
--- OUTSIDE RECORDS SUMMARY | 2024-07-16 11:47 | XMS_ITS | Encounter Summary ---
Author Organization [facility] Address [address] [facility] [place] [address] Care Team Providers Care Pipe Line Maintenance Supervisor Name Role Phone Annamarie Ann MD Unavailable [phone] Kaleb Sun MD Unavailable [phone] Kaleb Sun MD Primary Care Provider + Encounter Details Date Type Department Care Team (Late st Contact Info) Description 07/15/2024 [facility] Medical Advice [address] [place] [address] Kaleb Sun MD [address] [place] [address] Social History Tobacco Use Types [...] friends or relatives? Patient declined 01/02/2024 Attends Islam Services Not on file 01/01 Active Member of Clubs or Organizations Not on f ile 01/02/2024 Attends Club or Organization Meetings Not on marcio e 01/02/2024 Marital Status Not on file 01/02/2024 PHQ-2 Answer Date Recorded PHQ-2 Score 3 12/13/2022 [facility] - Occupational Stress Questionnaire [...] in an abandoned building, in an overnight nursing home, or couch-surfing.) Yes 01/02/2024 Are you worried [...] on file Legal Sex Female 3:21 AM NANNY CAREGIVER Gender Identity Not on file Sexual Orientation Not on file documented as of this encounter Plan of Treatment Not on file documented as of this encounter Visit Diagnoses Not on filedocumented in this encounter Additional Health Concerns Assessment Noted Time PHQ-9 Depression Total Score: 10 023 1:11 PM CDT documented as of this encounter Care Teams Pipe Line Maintenance Supervisor Relationship Specialty Start Date End Date Kaleb Sun MD [address] [place] [address] PCP - General Internal Medicine 01/03/24 Annamarie Ann MD [address] [place], [place] [phone] Internal Medicine 03/13/21 Kaleb Sun MD [address] [place] [address] Assigned PCP 12/22/22 documented as of this encounter
--- OUTSIDE RECORDS SUMMARY | 2024-07-16 11:47 | XMS_ITS | Encounter Summary ---
Author Organization [facility] Address [address] [place] [address] Care Team Providers Care Hospital Carrier Name Role Phone Margie Lopez MD Primary Care Provider [phone] Encounter Details Date Type Department Care Team (Latest Contact Info) Description 01/22/1995 Orders Only Charissa Coleman MD [address] [place] [address] Social History Tobacco Use Types Packs/Day Years [...] documented as of this encounter Care Teams Hospital Carrier Relationship Specialty Start Date End Date Margie Lopez MD [address] [place] [address] PCP - General Family Practice 06/29/22 documented as of this encounter
--- OUTSIDE RECORDS SUMMARY | 2024-07-16 11:47 | XMS_ITS | Encounter Summary ---
Author Organization [facility] Address [address] [place] [address] Care Team Providers Care Catechist Name Role Phone Margie Lopez MD Primary Care Provider [phone] Encounter Details Date Type Department Care Team (Latest Contact Info) Description 09/30/2015 Consent for Procedure/Treatm ent Ophthalmology at [address] [address] Janette Shea MD [address] [phone] INFORMED CONSENT FORM Social History Tobacco Use [...] documented as of this encounter Care Teams Catechist Relationship Specialty Start Date End Date Margie Lopez MD [address] [place] [address] PCP - General Family Practice 06/29/22 documented as of this encounter
--- OUTSIDE RECORDS SUMMARY | 2024-07-16 11:47 | XMS_ITS | Encounter Summary ---
Author [facility] Address [address], [place] [address] Care Team Providers Care Product Mgmt Dev Manager Name Role Phone Margie Lopez MD Primary Care Provider [phone] Encounter Details Date Type Department Care Team (Late st Contact Info) Description 01/06/2014 Scanned History External to Transferred Record, Provider [facility] Social History Tobacco Use Types Packs/Day Years [...] documented as of this encounter Care Teams Product Mgmt Dev Manager Relationship Specialty Start Date End Date Margie Lopez MD [address] [place] [address] PCP - General Family Practice 06/29/22 documented as of this encounter
--- OUTSIDE RECORDS SUMMARY | 2024-07-16 11:47 | XMS_ITS | Encounter Summary ---
Author Organization [facility] Address [address], [place] [address] Care Team Providers Care Desktop Support Specialist Name Role Phone Margie Lopez MD Primary Care Provider [phone] Encounter Details Date Type Department Care Team (Latest Contact Info) Description 02/15/1995 Orders Only Adam Alvarez MD [address] [place] [address] Social History Tobacco Use Types Packs/Day Years [...] documented as of this encounter Care Teams Desktop Support Specialist Relationship Specialty Start Date End Date Margie Lopez MD [address] [place] [address] PCP - General Family Practice 06/29/22 documented as of this encounter
--- OUTSIDE RECORDS SUMMARY | 2024-07-16 11:47 | XMS_ITS | Encounter Summary ---
Author Organization [facility] Address [address] [place] [address] Care Team Providers Care Spindle Tester Name Role Phone Annamarie Ann MD Unavailable [phone] Kaleb Sun MD Unavailable Kaleb Sun MD Primary Care Provider + Reason for Visit * Reason Comments UTI Entered automaticall y based on patient selection in [employer]. Encounter Details Date Type Department Care Team (Late st Contact Info) Description 07/15/2024 5:30 PM CDT E-Visit [address] [place] [address] Kaleb Sun MD [address] [place] [address] UTI (Entered automatically based on patien... Social [...] friends or relatives? Patient declined 01/02/2024 Attends Restorationism Services Not on file 01/01 Active Member of Clubs or Organizations Not on f ile 01/02/2024 Attends Club or Organization Meetings Not on marcio e 01/02/2024 Marital Status Not on file 01/02/2024 PHQ-2 Answer Date Recorded PHQ-2 Score 3 12/13/2022 [facility] - Occupational Stress Questionnaire Answer Date Recorded [...] in an abandoned building, in an overnight group home, or couch-surfing.) Yes 01/02/2024 Are you [...] on file Legal Sex Female 3:21 AM PRECISION FILER HAND Gender Identity Not on file Sexual Orientation [...] will receive instructions with your results in [facility] once they are available. If your symptoms worsen, you develop pain in your back or stomach, develop fevers, or are not improving in 5 days, please contact your primary care provider for an appointment or visit a Walk-in or Urgent Care Center to be seen. Thanks again for choosing us as your health healthcare network pricing consultant, Kaleb Michel. MD Dino documented in this [...] documented as of this encounter Care Teams Spindle Tester Relationship Specialty Start Date End Date Kaleb Sun MD [address] [facility] [place] [address] PCP - General Internal Medicine 01/03/24 Annamarie Ann MD [address] [place] [address] Internal Medicine 03/13/21 Kaleb Sun MD [address] [facility] [address] Assigned PCP 12/22/22 documented as of this encounter
--- OUTSIDE RECORDS SUMMARY | 2024-07-16 11:47 | XMS_ITS | Clinical Summary ---
Author Organization [facility] Address [address], [place] [address] Care Team Providers Care Nurse Extern Name Role Phone Margie Lopez MD Primary Care Provider [phone] Source Comments You are receiving this document [...] for each transition of care or referral. 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 Gurpreet Loya. 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 Epic Diverticulosis of large intestine 05/12/2002 Overview (12/23/2014): [facility] Resolved Problems Problem Noted Date Diagnosed Date Resolved Date Pseudophakia, right eye 09/30/2015 09/0 09/2016 Overview (11/14/2016): Pseudophakia, right eye (09/29/15) and left eye (11/03/15) PSC (posterior subcapsular c ataract), bilateral 07/18/2015 11/04/2015 Overview (11/14/2016): PSC (posterior subcapsular cataract), OS Vascular insufficiency of intestine 05/12/2002 05/24/2014 Overview (12/23/2014): [facility] Immunizations Immunization Administration Dates Next Due Flu Vac (3+ yrs) 01/06/2007, 6,02/06/2005,2003,01/21/2002,01/22/2001,12/29/1999,1 Influenza IIV3 (Trivalent) Nidia Youngblooddose, 65+ Yrs (48168) 12/10/2017,12/06/2016,12/28/2014,2013 Influenza Vaccine (3+years) ([facility]) 01/21/2008 Influenza Vaccine TIV High D ose 65+ Yrs ([facility]) 12/11/2012,12/07/2010 Influenza, Unspecified Formulation 12/21,01/06/1996,01/12/1994,1992,01/18/1992,02/11/1991 [...] Hgb A1c 6.1(H) 4.3 - 5.6 % [facility] Comment: See (NOTE) For patients not previously diagnosed with diabetes: 5.7-6.4%: Increased risk for diabetes (prediabetic) 6.5% and greater: Diagnostic for diabetes For diabetic patients: <8.0%: Goal of therapy for ages 18-75 - physicians may recommend a higher or lower goal for specific individuals 11/05/2016 2:34 PM CDT 11/05/2016 2:35 PM CDT Narrative [facility] - 11/06/2016 8:57 AM CDT Performed at [facility], [address] [place] [address] Annamarie Ann MD LAB_1 Final Result [facility] [phone] * DEXA BONE DENSITY SPINE/HIP/FOREARM (07/12/2016 10:51 [...] again SCREENING FOR OSTEO, HOLD CALCIUM Indication:Osteopenia Plant Utility Person and Model of Instrument: [employer]andoDaily Demographics Age: 81 y.o. Gender: female Height [...] 4:31 PM 06/28/2022 4:41 PM Care Teams Nurse Extern Relationship Specialty Start Date End Date Margie Lopez MD [address] [place] [address] PCP - General Family Practice 06/29/22
--- OUTSIDE RECORDS SUMMARY | 2024-07-16 11:47 | XMS_ITS | Encounter Summary ---
Author Organization [facility] Address [address], [place] [address] Care Team Providers Care Lump Roller Name Role Phone Margie Lopez MD Primary Care Provider [phone] Encounter Details Date Type Department Care Team (Latest Contact Info) Description 03/20/1995 Orders Only Leslie Hoyos MD [address] [place] [address] Social History Tobacco Use Types Packs/Day Years [...] documented as of this encounter Care Teams Lump Roller Relationship Specialty Start Date End Date Margie Lopez MD [address] [place] [address] PCP - General Family Practice 06/29/22 documented as of this encounter
--- OUTSIDE RECORDS SUMMARY | 2024-07-16 11:47 | XMS_ITS | Encounter Summary ---
Author Organization [facility] Address [address] [place] [address] Care Team Providers Care Support Clerk Name Role Phone Margie Lopez MD Primary Care Provider [phone] Encounter Details Date Type Department Care Team (Latest Contact Info) Description 11/21/1994 Orders Only Charissa Coleman MD [address] [place] [address] Social History Tobacco Use Types Packs/Day Years [...] documented as of this encounter Care Teams Support Clerk Relationship Specialty Start Date End Date Margie Lopez MD [address] [place] [address] PCP - General Family Practice 06/29/22 documented as of this encounter
--- OUTSIDE RECORDS SUMMARY | 2024-07-16 11:47 | XMS_ITS | Clinical Summary ---
Author Organization [facility] Address [address] 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 Gurpreet Loya. 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 07/15/2024 MyC Medical Advice [facility] [address] [facility] [address] [place] [address] Kaleb Sun MD 06/14/2024 Refill [facility] [address] [facility] [address] [place] [address] Kaleb Sun MD Medication Refill from Last [...] friends or relatives? Patient declined 01/02/2024 Attends Judaism Services Not on file 01/01 Active Member of Clubs or Organizations Not on f ile 01/02/2024 Attends Club or Organization Meetings Not on marcio e 01/02/2024 Marital Status Not on file 01/02/2024 PHQ-2 Answer Date Recorded PHQ-2 Score 3 12/13/2022 [facility] - Occupational [...] in an abandoned building, in an overnight prison, or couch-surfing.) Yes 01/02/2024 Are you worried [...] on file Legal Sex Female 3:21 AM WEB WEAVER Gender Identity Not on file Sexual Orientation [...] control, and institution of therapy with an zzotcjsnkyp-mcowoggpba-hcbehv (TYLER) inhibitor (if the patient can tolerate it). Urine URINE SPECIMEN / Unknown Non-blood Collection / Unknown 01/03/2024 10:00 AM CDT 01/03/2024 10:13 AM CDT us Kaleb Sun MD LAB - URINE ORDERABLES F inal Result U LABORATORY [facility] [address] [facility] [address] [facility], [address] [place] [address] * TSH with free T4 reflex (01/02/2024 1:41 PM CDT) TSH 1.01 0.30 - 4.20 uIU/mL 01/03/2024 2:41 AM CDT [facility] LABORATORY Blood BLOOD SPECIMEN / Unknown Venipuncture / Unknown 01/02/2024 1:41 PM CDT 01/02/2024 1:42 PM CDT us Kaleb Sun MD LAB - BLOOD ORDERABLES F inal Result [facility] LABORATORY [facility] [address] [facility], [address] [place] [address] * (ABNORMAL) Lipid panel reflex to direct [...] BLOOD ORDERABLES F inal Result U LABORATORY [facility] [address] [facility], [address] [place] [address], [facility] * Hemoglobin A1c (01/02/2024 1:41 PM CDT) Pathologist [facility] Estimated Average Glucose 105 <117 mg/dL 01/02/2024 [...] ORDERABLES F inal Result Performing Organization Address City/[facility] Co de Phone Number LABORATORY [facility] [place] [facility] [address] [facility] (no room number, 1st floor of clinic) [place] [address], [facility] * (ABNORMAL) Comprehensive metabolic panel (BMP + [...] BLOOD ORDERABLES F inal Result [facility] LABORATORY [facility] [address] [facility] [address] [facility], [address] [place] [address] from Last 3 Months or Most Recently Relevant to Health Maintenance Insurance [facility]ICARE [facility] Address: [address] [place] [address] MEDICARE [employer] Advance Directives For more information, please contact: [phone] * Full Code (Latest Code Status on File) Date Activated Date Inactivated Comments 12/05/2018 9:16 PM 12/07/2018 4:31 PM Question Answer Comments Code status determined by: Discussion with juan nt/legal decision maker Care Teams Tuft Machine Operator Relationship Specialty Start Date End Date Kaleb Sun MD [address] [facility] [place] [address] PCP - General Internal Medicine 01/03/24 Annamarie Ann MD [address] [place] [address] Internal Medicine 03/13/21 Kaleb Sun MD [address] [address] Assigned PCP 12/22/22
[2024-07-16 11:48] LABS: Lipase* 19 U/L (23-300)
--- OUTSIDE RECORDS SUMMARY | 2024-07-16 11:48 | XMS_ITS | Encounter Summary ---
Author Organization [facility] Address [address] [place] [address] Care Team Providers Care Handling Tech Name Role Phone Margie Lopez MD Primary Care Provider [phone] Encounter Details Date Type Department Care Team (Latest Contact Info) Description 04/24/1995 Orders Only Charissa Coleman MD [address] [address] Social History Tobacco Use Types Packs/Day Years [...] documented as of this encounter Care Teams Handling Tech Relationship Specialty Start Date End Date Margie Lopez MD [address] [place] [address] PCP - General Family Practice 06/29/22 documented as of this encounter
--- OUTSIDE RECORDS SUMMARY | 2024-07-16 11:48 | XMS_ITS | Encounter Summary ---
Author Organization [facility] Address [address] [place] [address] Care Team Providers Care Manager Storage Name Role Phone Margie Lopez MD Primary Care Provider [phone] Encounter Details Date Type Department Care Team (Late st Contact Info) Description 10/20/2016 Refill Order [facility] Internal Medicine [place] [address] [place], [place] [address] Annamarie Ann MD [address] [place], [place] [address] Social History Tobacco Use Types Packs/Day Years [...] as of this encounter Care Teams Manager Storage Relationship Specialty Start Date End Date Margie Lopez MD [address] [place] [address] PCP - General Family Practice 06/29/22 documented as of this encounter
--- OUTSIDE RECORDS SUMMARY | 2024-07-16 11:48 | XMS_ITS | Encounter Summary ---
Author Organization [facility] [address], [place] [address] Care Team Providers Care Ready Mix Truck Driver Name Role Phone Margie Lopez MD Primary Care Provider [phone] Encounter Details Date Type Department Care Team (Latest Contact Info) Description 12/11/2012 Correspondence TMD at [address] [id number] Missy Salmeron DDS, [place] [address] [place], [place] [id number] SOMNODENT FLEX ORDER Social History Tobacco Use [...] documented as of this encounter Care Teams Ready Mix Truck Driver Relationship Specialty Start Date End Date Margie Lopez MD [address] [place] [address] PCP - General Family Practice 06/29/22 documented as of this encounter
--- OUTSIDE RECORDS SUMMARY | 2024-07-16 11:48 | XMS_ITS | Encounter Summary ---
Author Organization [facility] Address [address], [place] [address] Care Team Providers Care Wall Scraper Name Role Phone Margie Lopez MD Primary Care Provider [phone] Encounter Details Date Type Department Care Team ([facility] Contact Info) Description 12/11/2012 Correspondence None No [...] documented as of this encounter Care Teams Wall Scraper Relationship Specialty Start Date End Date aMrgie Lopez MD [address] [place] [address] PCP - General Family Practice 06/29/22 documented as of this encounter
--- OUTSIDE RECORDS SUMMARY | 2024-07-16 11:48 | XMS_ITS | Encounter Summary ---
Author Organization [facility] Address [address], [place] [address] Care Team Providers Care Customer Advocate Name Role Phone Margie Lopez MD Primary Care Provider [phone] Encounter Details Date Type Department Care Team ([facility] Contact Info) Description 08/01/2012 Correspondence External to [...] documented as of this encounter Care Teams Customer Advocate Relationship Specialty Start Date End Date Margie Lopez MD [address] [place] [address] PCP - General Family Practice 06/29/22 documented as of this encounter
--- OUTSIDE RECORDS SUMMARY | 2024-07-16 11:48 | XMS_ITS | Encounter Summary ---
Author Organization [facility] Address [address] [address] Care Team Providers Care Chart Snatcher Name Role Phone Margie Lopez MD Primary Care Provider [phone] Encounter Details Date Type Department Care Team (Latest Contact Info) Description 03/13/1996 Orders Only Cherelle Joya MD [facility] [address] [facility], [address] [place], [place] [id number] Social History Tobacco Use Types Packs/Day Years [...] documented as of this encounter Care Teams Chart Snatcher Relationship Specialty Start Date End Date Margie Lopez MD [address] [place] [address] PCP - General Family Practice 06/29/22 documented as of this encounter
--- OUTSIDE RECORDS SUMMARY | 2024-07-16 11:48 | XMS_ITS | Clinical Summary ---
Author Organization [facility] Address [address] [place] [address] Care Team Providers Care Overhead Door Technician Name Role Phone Annamarie Ann MD Primary Care Provider [phone] Allergies No known active allergies Medications FOSAMAX [...] on file Legal Sex Female 7:16 AM FISH TENDER Gender Identity Not on file Sexual Orientation [...] Height 152.4 cm (5') 04/26/2017 1:39 PM FISH TENDER Body Mass Index 31.26 04/26/2017 1:39 PM FISH TENDER Plan of Treatment Health Maintenance Due Date [...] Completed 07/27/2017 Medical Devices Implanted Type Area Manager Employment Device Identifier Shelf Expiration Date Model / Serial / Lot System Prolift Pfr Total - [id number] Implanted:Qty: 1 on 09/26/2005 at [facility] [employer] [id number]# / / [id number] Lens Iol 20.5 Wf [id number]-26. 5 - [id number] Implanted:Qty: 1 on 09/29/2015 by Janette Shea MD at [facility] Right: Eye [employer] 07/12/2020 [id number]-28. 5# / [id number] / Lens Iol 20.5 Wf [id number]-48. 5 - [id number] Implanted:Qty: 1 on 11/03/2015 by Janette Shea MD at [facility] Left: Eye [employer] 09/21/2020 [id number]. 5# / [id number] / [place] [id number] MEDIC[place] PART B HB ONLY Member Subscriber Plan / Payer (Ef fective 2001-Present) Name:Erika Martinez Member ID:[id number] Relation to Subscriber:Self Name:Erika Martinez Subscriber ID:[id number] Payer ID:Not on file Group ID:Not on file Type:Not on file Address: ATTN: CLAIMS [address] MEDICARE PART A HB ONLY Member Subscriber Plan / Payer (Ef fective 2001-Present) Name:Erika Martinez Member ID:[id number] Relation to Subscriber:Self Name:Erika Martinez Subscriber ID:[id number] Payer ID:Not on file Group ID:Not on file Type:Not on file Address: ATTN: CLAIMS [address] MEDICARE PB ONLY Member Subscriber Plan / Payer (Ef fective 2001-Present) Name:Erika Martinez Member ID:[id number] Relation to Subscriber:Self Name:Erika Martinez Subscriber ID:[id number] Payer ID:Not on file Group ID:Not on file Type:Not on file Address: ATTN: CLAIMS [address] [place] [id number] Advance Directives * Full Code (Latest Code Status on File) Date Activated Date Inactivated Comments 11/02/2015 10:10 PM 11/03/2015 12:11 PM * Full Code Date Activated Date Inactivated Comments 09/28/2015 10:35 AM 09/29/2015 11:33 AM Care Teams Overhead Door Technician Relationship Specialty Start Date End Date Annamarie Ann MD [address] [address] PCP - General 09/19/05
--- OUTSIDE RECORDS SUMMARY | 2024-07-16 11:48 | XMS_ITS | Encounter Summary ---
Author Organization [facility] Address [address], [place] [address] Care Team Providers Care Administrative Services Coordinator Name Role Phone Margie Lopez MD Primary Care Provider [phone] Encounter Details Date Type Department Care Team (Latest Contact Info) Description 07/22/1996 Orders Only Cherelle Joya MD [facility] [address] [facility] [place], [place] [id number] Social History Tobacco Use Types Packs/Day Years [...] documented as of this encounter Care Teams Administrative Services Coordinator Relationship Specialty Start Date End Date Margie Lopez MD [address] [place] [address] PCP - General Family Practice 06/29/22 documented as of this encounter
--- OUTSIDE RECORDS SUMMARY | 2024-07-16 11:48 | XMS_ITS | Encounter Summary ---
Author Organization [facility] Address [address] [place] [address] Care Team Providers Care University Partnership Rep Name Role Phone Margie Lopez MD Primary Care Provider [phone] Encounter Details Date Type Department Care Team (Latest Contact Info) Description 11/24/1999 [facility] Nikki Pollack MD [facility] [address] [place] [facility] [address] Social History Tobacco Use Types Packs/Day Years [...] documented as of this encounter Care Teams University Partnership Rep Relationship Specialty Start Date End Date Margie Lopez MD [address] [place] [address] PCP - General Family Practice 06/29/22 documented as of this encounter
--- OUTSIDE RECORDS SUMMARY | 2024-07-16 11:48 | XMS_ITS | Encounter Summary ---
Author Organization [facility] Address [address] [place] [address] Care Team Providers Care Homoeopath Name Role Phone Margie Lopez MD Primary Care Provider [phone] Encounter Details Date Type Department Care Team (Late st Contact Info) Description 07/22/2016 [facility] [place] [address] [place], [place] [phone] Annamarie Ann MD [address] [place], [place] [address] Social History Tobacco Use Types Packs/Day Years [...] documented as of this encounter Care Teams Homoeopath Relationship Specialty Start Date End Date Margie Lopez MD [address] [place] [address] PCP - General Family Practice 06/29/22 documented as of this encounter
--- OUTSIDE RECORDS SUMMARY | 2024-07-16 11:48 | XMS_ITS | Encounter Summary ---
Author Organization [facility] Address [address] [place] [address] Care Team Providers Care Terminal Superintendent Name Role Phone Margie Lopez MD Primary Care Provider [phone] Encounter Details Date Type Department Care Team (Late st Contact Info) Description 04/20/2016 Refill Order [facility] Internal Medicine [place] [address] [place], [place] [phone] Annamarie Ann MD [address] [place], [place] [address] Social History Tobacco Use Types Packs/Day Years [...] pt. Massiel Shah CMA 04/20/2016, 12:30 PM CLEANER documented in this encounter Plan of Treatment Not on file documented as of this encounter Results * TSH with Free T4 (if TSH Abnormal) (05/07/2016 4:40 PM YARD CLEANER) TSH, with Reflex 2.59 0.35 - 4.94 uIU/ml [facility] 05/07/2016 4:40 PM YARD CLEANER 05/07/2016 4:41 PM YARD CLEANER Narrative [facility] - 05/07/2016 7:20 PM YARD CLEANER Performed at [facility], [address] [place] [address] us Annamarie Ann MD LAB_1 Final Result [facility] [phone] documented in this encounter Visit Diagnoses Diagnosis [...] documented as of this encounter Care Teams Terminal Superintendent Relationship Specialty Start Date End Date Margie Lopez MD [address] [place] [address] PCP - General Family Practice 06/29/22 documented as of this encounter
--- OUTSIDE RECORDS SUMMARY | 2024-07-16 11:48 | XMS_ITS | Encounter Summary ---
Author Organization [place] Address [address] [place] [address] Care Team Providers Care Policy Director Name Role Phone Jamaal Tracey Primary Care Provider [phone] Dayana Wilcox APRN, CNP Primary Care Provider Annamarie Ann MD Primary Care Provider [phone] Annamarie Ann MD Primary Care Provider [phone] Annamarie Ann MD Unavailable [phone] Dayana Wilcox APRN IRONING PLEATER Unavailable [phone] Dayana Wilcox APRN, CNP Unavailable [phone] [facility] Primary Care Provider No Ref-Primary, Physician Primary Care Provider Kaleb Sun MD Unavailable [phone] Kaleb Sun MD Primary Care Provider + Encounter Details Date Type Department Care Team (Late st Contact Info) Description 07/09/2012 Office Visit-[facility] Heart [address] [place] [phone] Giselle Lao MD HEART [place] [id number] [facility] [address] [place] [address] Social History Tobacco Use Types Packs/Day Years Used Date Smoking Tobacco: Never Assessed Comments Unknown Sex and Gender Information Value Date Recorded Sex Assigned at Not on file Legal Sex Female 3:21 AM PICKLING DRUM OPERATOR Gender Identity Not on file Sexual Orientation Not on file documented as of this encounter Progress Notes * Giselle Lao MD - 07/11/2012 2:46 PM CDT Progress Note Created by: Giselle Lao M.D. [id number] DATE: 07/09/2012 BARBARA MARTINEZ DATE OF : 1935 AGE: [age] years old Referring Physician: JAMAAL TRACEY Referring Clinic: [facility] CURRENT DIAGNOSES 1. - Shortness of Breath, [...] p.o. twice daily 8. Nasonex 50 mcg/actuation [place], Non-Aerosol, Take as Directed 9. omeprazole 40 [...] when she was being seen at the [place] she may have had pulmonary function tests [...] HISTORY FAMILY HISTORY: Father - Age 56, [place]; Mother - Age 92, CVA, unknown type; [...] twice daily, #0 (Zero) Nasonex 50 mcg/actuation [place], Non-Aerosol, Take as Directed, #0 (Zero) omeprazole [...] Today 2. Pulmonary Function Test Schedule at [facility] 3. Return Visit me or yajaira or ajnet 1 week 4. Lexiscan Infusion 2 Days, able to convert to treadmill stress if pt able to exercise Giselle Lao M.D. documented in this encounter Plan of Treatment Not on file documented as of this encounter Visit Diagnoses Not on filedocumented in this encounter Additional Health Concerns Infection Onset Date Last Indicated Resolved Time Rule Out COVID-19 03/13/2021 03/13/2021 03/13/2021 8:37 PM PICKLING DRUM OPERATOR documented as of this encounter Care Teams Policy Director Relationship Specialty Start Date End Date Jamaal Tracey [facility] [address] [facility] [place] [address] PCP - General 07/09/12 12/09/17 Dayana Wilcox APRN IRONING PLEATER [address] [address] PCP - General Family Practice 12/10/17 12/08/18 Annamarie Ann MD [address] [place] [address] PCP - General Internal Medicine 12/09/18 03/12/21 Annamarie Ann MD [address] [place] [address]40 PCP - General Internal Medicine 03/13/21 04/11/21 Dayana Wilcox APRN IRONING PLEATER [address] [address] PCP - Assigned PCP 12/23/15 05/27/18 [facility], [address] [id number] PCP - General 04/12/21 12/10/22 No Ref-Primary, Physician PCP - General 12/11/22 01/02/24 Kaleb Sun MD [address] [place] [address] PCP - General Internal Medicine 01/03/24 Annamarie Ann MD [address] [facility] [address] Internal Medicine 03/13/21 Dayana Wilcox APRN [facility] [address] [address] [place] [address] Assigned PCP 12/23/15 01/10/19 Kaleb Sun MD [address] [place] [address] Assigned PCP 12/22/22 documented as of this encounter
--- OUTSIDE RECORDS SUMMARY | 2024-07-16 11:48 | XMS_ITS | Encounter Summary ---
Author Organization [facility] Address [address] [address] Care Team Providers Care Supervisor Sintering Plant Name Role Phone Margie Lopez MD Primary Care Provider [phone] Encounter Details Date Type Department Care Team (Latest Contact Info) Description 03/28/1994 Orders Only Gerardo Oneal MD [address] [place] [address] Social History Tobacco Use Types Packs/Day Years [...] as of this encounter Care Teams Supervisor Sintering Plant Relationship Specialty Start Date End Date Margie Lopez MD [address] [place] [address] PCP - General Family Practice 06/29/22 documented as of this encounter
--- OUTSIDE RECORDS SUMMARY | 2024-07-16 11:48 | XMS_ITS | Encounter Summary ---
Author Organization [facility] Address [address] [address] Care Team Providers Care Technology Risk Intern Name Role Phone Margie Lopez MD Primary Care Provider [phone] Encounter Details Date Type Department Care Team (Latest Contact Info) Description 08/23/1998 Orders Only Leslie Hoyos MD [address] [place] [address] Social History Tobacco Use Types Packs/Day Years [...] documented as of this encounter Care Teams Technology Risk Intern Relationship Specialty Start Date End Date Margie Lopez MD [address] [place] [address] PCP - General Family Practice 06/29/22 documented as of this encounter
--- OUTSIDE RECORDS SUMMARY | 2024-07-16 11:48 | XMS_ITS | Encounter Summary ---
Author Organization [facility] Address [address] [address] Care Team Providers Care Color Checker Name Role Phone Margie Lopez MD Primary Care Provider [phone] Encounter Details Date Type Department Care Team (Latest Contact Info) Description 02/24/1996 Orders Only Adam Alvarez MD [address] [place] [address] Social History Tobacco Use Types Packs/Day Years [...] documented as of this encounter Care Teams Color Checker Relationship Specialty Start Date End Date Margie Lopez MD [address] [place] [address] PCP - General Family Practice 06/29/22 documented as of this encounter
--- OUTSIDE RECORDS SUMMARY | 2024-07-16 11:48 | XMS_ITS | Encounter Summary ---
Author Organization [facility] Address [address] [place] [address] Care Team Providers Care Hospice Massage Therapist Name Role Phone Margie Lopez MD Primary Care Provider [phone] Encounter Details Date Type Department Care Team (Latest Contact Info) Description 08/23/1994 Orders Only Kat Gerardo [address] [place] [address] [address], [place] [address] Social History Tobacco Use Types Packs/Day Years [...] documented as of this encounter Care Teams Hospice Massage Therapist Relationship Specialty Start Date End Date Margie Lopez MD [address] [place] [address] PCP - General Family Practice 06/29/22 documented as of this encounter
--- OUTSIDE RECORDS SUMMARY | 2024-07-16 11:48 | XMS_ITS | Encounter Summary ---
Author Organization [facility] Address [address], [place] [address] Care Team Providers Care Ceramic Tile Installation Helper Name Role Phone Margie Lopez MD Primary Care Provider [phone] Encounter Details Date Type Department Care Team (Latest Contact Info) Description 03/29/1998 Orders Only Nancy Gabriel MD [facility] [address] [place], [place] [address] Social History Tobacco Use Types Packs/Day Years [...] documented as of this encounter Care Teams Ceramic Tile Installation Helper Relationship Specialty Start Date End Date Margie Lopez MD [address] [place] [address] PCP - General Family Practice 06/29/22 documented as of this encounter
--- OUTSIDE RECORDS SUMMARY | 2024-07-16 11:48 | XMS_ITS | Encounter Summary ---
Author Organization [place] Address [address] [place] [address] Care Team Providers Care Stock Broker Name Role Phone Annamarie Ann MD Unavailable [phone] Ref-Primary, Physician Primary Care Provider Kaleb Sun MD Unavailable Kaleb Sun MD Primary Care Provider + Reason for Visit * Reason Onset Date Comments MyChart Communication 06/22/2023 Encounter Details Date Type Department Care Team (Late st Contact Info) Description 06/22/2023 MyC Medical Advice [facility] [address] [place] [address] Kaleb Sun MD [address] [place] [address] MyChart Communication Social History Tobacco [...] in an abandoned building, in an overnight skilled nursing, or couch-surfing.) Yes 12/13/2022 Are you worried [...] on file 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 Luis Galeano, Licha Jimenez [place] 8:26 AM 06/24/2023 documented in this encounter Plan of Treatment Not on file documented as of this encounter Visit Diagnoses Not on filedocumented in this encounter Additional Health Concerns Assessment Noted Time PHQ-9 Depression Total Score: 10 023 1:11 PM CDT documented as of this encounter Care Teams Stock Broker Relationship Specialty Start Date End Date No Ref-Primary, Physician PCP - General 12/11/22 01/02/24 Kaleb Sun MD [address] [place] [address] PCP - General Internal Medicine 01/03/24 Annamarie Ann MD [address] [place] [address] Internal Medicine 03/13/21 Kaleb Sun MD [address] [place] [address] Assigned PCP 12/22/22 documented as of this encounter
--- OUTSIDE RECORDS SUMMARY | 2024-07-16 11:48 | XMS_ITS | Encounter Summary ---
Author Organization [facility] Address [address] [address] Care Team Providers Care Marketing Operations Analyst Name Role Phone Margie Lopez MD Primary Care Provider [phone] Encounter Details Date Type Department Care Team (Latest Contact Info) Description 02/15/1997 Orders Only Leslie Hoyos MD [address] [place] [address] Social History Tobacco Use Types Packs/Day Years [...] documented as of this encounter Care Teams Marketing Operations Analyst Relationship Specialty Start Date End Date Margie Lopez MD [address] [place] [address] PCP - General Family Practice 06/29/22 documented as of this encounter
--- OUTSIDE RECORDS SUMMARY | 2024-07-16 11:48 | XMS_ITS | Encounter Summary ---
Author Organization [facility] Address [address], [place] [address] Care Team Providers Care Alarm Security Or Surveillance Monitor Name Role Phone Margie Lopez MD Primary Care Provider [phone] Encounter Details Date Type Department Care Team (Latest Contact Info) Description 09/17/1997 Orders Only Cherelle Joya MD [facility] [address] [place], [place] [id number] Social History Tobacco Use Types Packs/Day Years [...] documented as of this encounter Care Teams Alarm Security Or Surveillance Monitor Relationship Specialty Start Date End Date Margie Lopez MD [address] [place] [address] PCP - General Family Practice 06/29/22 documented as of this encounter
--- OUTSIDE RECORDS SUMMARY | 2024-07-16 11:48 | XMS_ITS | Encounter Summary ---
Author Organization [place] Address [address] [place] [address] Care Team Providers Care Commercial Energy Rater Name Role Phone Annamarie Ann MD Primary Care Provider [phone] Annamarie Ann MD Unavailable [phone] [facility] Primary Care Provider No Ref-Primary, Physician Primary Care Provider Kaleb Sun MD Unavailable [phone] Kaleb Sun MD Primary Care Provider + [...] friends or relatives? Patient declined 01/02/2024 Attends [employer] Services Not on file 01/01 Active Member of Clubs or Organizations Not on f ile 01/02/2024 Attends Club or Organization Meetings Not on marcio e 01/02/2024 Marital Status Not on file 01/02/2024 PHQ-2 Answer Date Recorded PHQ-2 Score 3 12/13/2022 [facility] - Occupational Stress Questionnaire Answer Date Recorded [...] in an abandoned building, in an overnight retirement, or couch-surfing.) Yes 01/02/2024 Are you worried [...] on file 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 Gender Identity Not on file Sexual [...] on filedocumented in this encounter Care Teams Commercial Energy Rater Relationship Specialty Start Date End Date Annamarie Ann MD [address] [place] [address] PCP - General Internal Medicine 03/13/21 04/11/[address] [address] PCP - General 04/12/21 12/10/22 No Ref-Primary, Physician PCP - General 12/11/22 01/02/24 Kaleb Sun MD [address] [place] [address] PCP - General Internal Medicine 01/03/24 Annamarie Ann MD [address] [place] [address] Internal Medicine 03/13/21 Kaleb Sun MD [address] [place] [address] Assigned PCP 12/22/22 documented as of this encounter
--- OUTSIDE RECORDS SUMMARY | 2024-07-16 11:48 | XMS_ITS | Encounter Summary ---
Author Organization [facility] Address [address] [address] Care Team Providers Care Analytics Associate Name Role Phone Margie Lopez MD Primary Care Provider [phone] Encounter Details Date Type Department Care Team (Latest Contact Info) Description 11/24/1996 [facility] Only [facility] [address], [address] Social History Tobacco Use Types Packs/Day Years [...] documented as of this encounter Care Teams Analytics Associate Relationship Specialty Start Date End Date Margie Lopez MD [address] [place] [address] PCP - General Family Practice 06/29/22 documented as of this encounter
--- OUTSIDE RECORDS SUMMARY | 2024-07-16 11:48 | XMS_ITS | Encounter Summary ---
Author Organization [facility] Address [address] [place] [address] Care Team Providers Care Overedge Sewer Name Role Phone Margie Lopez MD Primary Care Provider [phone] Encounter Details Date Type Department Care Team (Late st Contact Info) Description 10/26/2011 Consent for Procedure/Treatme nt [facility] Department INFORMED CONSENT RECORD Social History Tobacco [...] documented as of this encounter Care Teams Overedge Sewer Relationship Specialty Start Date End Date Margie Lopez MD [address] [place] [address] PCP - General Family Practice 06/29/22 documented as of this encounter
--- OUTSIDE RECORDS SUMMARY | 2024-07-16 11:48 | XMS_ITS | Encounter Summary ---
Author Organization [place] Address [address] [facility] [address] [address] [place] [address] Care Team Providers Care Sheet Metal Installer Name Role Phone Jamaal Tracey Primary Care Provider [phone] Dayana Wilcox APRN, CNP Primary Care Provider Annamarie Ann MD Primary Care Provider Annamarie Ann MD Primary Care Provider [phone] Annamarie Ann MD Unavailable [phone] Dayana Wilcox APRN CARRY OUT CLERK Unavailable [phone] Dayana Wilcox APRN, CNP Unavailable [phone] [facility] Primary Care Provider No Ref-Primary, Physician Primary Care Provider Kaleb Sun MD Unavailable [phone] Kaleb Sun MD Primary Care Provider + Encounter Details Date Type Department Care Team (Late st Contact Info) Description 07/28/2012 Office Visit-[facility] Heart [address] [place] [address] Shea Perez PA-C [address] [place] [place] [address] Social History Tobacco Use Types Packs/Day Years Used Date Smoking Tobacco: Never Assessed Comments Unknown Sex and Gender Information Value Date Recorded Sex Assigned at Not on file 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 - Shortness of [...] p.o. twice daily 8. Nasonex 50 mcg/actuation [employer], Non-Aerosol, Take as Directed 9. omeprazole 40 [...] an appointment with Dr. Olivares tomorrow in [place]. 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 AND READING INSTRUCTOR documented as of this encounter Care Teams Sheet Metal Installer Relationship Specialty Start Date End Date Jamaal Tracey [facility] [address] [place] [address] PCP - General 07/09/12 12/09/17 Dayana Wilcox APRN CNP [address] [place] [address] PCP - General Family Practice 12/10/17 12/08/18 Annamarie Ann MD [address] [place] [address] PCP - General Internal Medicine 12/09/18 03/12/21 Annamarie Ann MD [address] [place] [address] PCP - General Internal Medicine 03/13/21 04/11/21 Dayana Wilcox APRN CARRY OUT CLERK [address] [address] PCP - Assigned PCP 12/23/15 05/27/[address] [id number] PCP - General 04/12/21 12/10/22 No Ref-Primary, Physician PCP - General 12/11/22 01/02/24 Kaleb Sun MD [address] [place] [address] PCP - General Internal Medicine 01/03/24 Annamarie Ann MD [address] [place] [address] Internal Medicine 03/13/21 Dayana Wilcox APRN CARRY OUT CLERK [address] [address] Assigned PCP 12/23/15 01/10/19 Kaleb Sun MD [address] [place] [address] Assigned PCP 12/22/22 documented as of this encounter
--- OUTSIDE RECORDS SUMMARY | 2024-07-16 11:48 | XMS_ITS | Encounter Summary ---
Author Organization [facility] Address [address] [address] Care Team Providers Care Steno Pool Supervisor Name Role Phone Margie Lopez MD Primary Care Provider [phone] Encounter Details Date Type Department Care Team (Latest Contact Info) Description 12/26/1998 Orders Only Cherelle Joya MD [facility] [address] [facility] [place], [place] [id number] Social History Tobacco Use Types Packs/Day Years [...] documented as of this encounter Care Teams Steno Pool Supervisor Relationship Specialty Start Date End Date Margie Lopez MD [address] [place] [address] PCP - General Family Practice 06/29/22 documented as of this encounter
--- OUTSIDE RECORDS SUMMARY | 2024-07-16 11:48 | XMS_ITS | Encounter Summary ---
Author Organization [facility] Address [address], [place] [address] Care Team Providers Care Payroll Bookkeeper Name Role Phone Margie Lopez MD Primary Care Provider [phone] Encounter Details Date Type Department Care Team (Latest Contact Info) Description 11/26/1995 Orders Only [facility] [address], [address] Social History Tobacco Use Types Packs/Day Years [...] documented as of this encounter Care Teams Payroll Bookkeeper Relationship Specialty Start Date End Date Margie Lopez MD [address] [place] [address] PCP - General Family Practice 06/29/22 documented as of this encounter
--- OUTSIDE RECORDS SUMMARY | 2024-07-16 11:48 | XMS_ITS | Encounter Summary ---
Author Organization [facility] Address [address], [place] [address] Care Team Providers Care Cause Analyst Name Role Phone Margie Lopez MD Primary Care Provider [phone] Encounter Details Date Type Department Care Team (Latest Contact Info) Description 07/24/1999 Orders Only Leslie Hoyos MD [address] [place] [address] Social History Tobacco Use Types Packs/Day Years [...] documented as of this encounter Care Teams Cause Analyst Relationship Specialty Start Date End Date Margie Lopez MD [address] [place] [address] PCP - General Family Practice 06/29/22 documented as of this encounter
--- OUTSIDE RECORDS SUMMARY | 2024-07-16 11:48 | XMS_ITS | Encounter Summary ---
Author Organization [facility] Address [address], [place] [address] Care Team Providers Care Complaint Evaluation Officer Name Role Phone Margie Lopez MD Primary Care Provider [phone] Encounter Details Date Type Department Care Team (Latest Contact Info) Description 07/23/1997 Orders Only Leslie Hoyos MD [address] [place] [address] Social History Tobacco Use Types Packs/Day Years [...] documented as of this encounter Care Teams Complaint Evaluation Officer Relationship Specialty Start Date End Date Margie Lopez MD [address] [place] [address] PCP - General Family Practice 06/29/22 documented as of this encounter
--- OUTSIDE RECORDS SUMMARY | 2024-07-16 11:48 | XMS_ITS | Encounter Summary ---
Author Organization [place] Address [address] [facility] [place] [address] Care Team Providers Care Studio Coordinator Name Role Phone Annamarie Ann MD Unavailable [phone] [facility] Primary Care Provider No Ref-Primary, Physician Primary Care Provider Kaleb Sun MD Unavailable [phone] Kaleb Sun MD Primary Care Provider + [...] friends or relatives? 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
--- OUTSIDE RECORDS SUMMARY | 2024-07-16 11:48 | XMS_ITS | Encounter Summary ---
Author Organization [facility] Address [address] [place] [address] Care Team Providers Care Manager Urology Name Role Phone Margie Lopez MD Primary Care Provider [phone] Encounter Details Date Type Department Care Team (Late st Contact Info) Description 11/03/2015 Same Day Surgery Ophthalmology at [facility] [address] [id number] Janette Shea MD [address] [id number] Social History Tobacco Use Types Packs/Day Years [...] as of this encounter Care Teams Manager Urology Relationship Specialty Start Date End Date Margie Lopez MD [address] [place] [address] PCP - General Family Practice 06/29/22 documented as of this encounter
--- OUTSIDE RECORDS SUMMARY | 2024-07-16 11:48 | XMS_ITS | Encounter Summary ---
Author Organization [facility] Address [address] [place] [address] Care Team Providers Care Buyer Intern Name Role Phone Margie Lopez MD Primary Care Provider [phone] Encounter Details Date Type Department Care Team (Latest Contact Info) Description 06/23/1996 Orders Only Chinyere Olivera MD [address] [place] [address] Social History Tobacco Use Types [...] documented as of this encounter Care Teams Buyer Intern Relationship Specialty Start Date End Date Margie Lopez MD [address] [place] [address] PCP - General Family Practice 06/29/22 documented as of this encounter
--- OUTSIDE RECORDS SUMMARY | 2024-07-16 11:48 | XMS_ITS | Encounter Summary ---
Author Organization [facility] Address [address], [place] [address] Care Team Providers Care Candle Molder Machine Name Role Phone Margie Lopez MD Primary Care Provider [phone] Encounter Details Date Type Department Care Team [...] documented as of this encounter Care Teams Candle Molder Machine Relationship Specialty Start Date End Date Margie Lopez MD [address] [place] [address] PCP - General Family Practice 06/29/22 documented as of this encounter
[2024-07-16 12:53] LABS: Appearance Urine Cloudy (Clear); Bilirubin Urine 3+ (Negative); Blood Urine 2+ (Negative); Color Urine Orange (Yellow); Glucose Urine Trace (Negative); Ketones Urine Trace (Negative); Leukocyte Esterase Urine Trace (Negative); Nitrite Urine Positive (Negative); Protein Urine 2+ (Negative); Specific Gravity Urine 1.025 (1.000-1.030); Urobilinogen Urine >=8.0 (0.2-1.0); pH Urine 5.5 (5.0-8.5)
[2024-07-16 13:09] LABS: Amorphous Sediment Urine Many; Bacteria Urine Many; Squamous Epithelial Cell Urine Moderate (None-Few)
[2024-07-16 13:45] LABS: Bilirubin Total* 3.5 mg/dL (0.1-1.5)
--- NOTE | 2024-07-16 14:39 | CRLHL7_ITS ---
For Patients: As a result of the Century Cures Act, medical imaging exams and procedure reports are released immediately into your electronic medical record. You may view this report before your referring provider. If you have questions, please contact your health care provider. INDICATION: Biliary sludge, obstruction. TECHNIQUE: An MRCP, including 2D, 3D and maximum intensity projection imaging, was performed. COMPARISON: Ultrasound from July 16, 2024 FINDINGS: The common bile duct is smoothly marginated and measures up to 7 millimeters mm in diameter. No filling defect is evident. The intrahepatic ducts are normal in caliber and appear to branch and taper in a grossly normal fashion. The gallbladder demonstrates gallbladder sludge. No distention. No pericholecystic fluid. No gallbladder wall thickening. No definite gallbladder stones.. Fatty atrophy of the pancreas is noted. No pancreatic duct dilation. 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 The liver is normal in size, shape and signal. The spleen, adrenal glands and kidneys are within normal limits. Moderate hiatal hernia is noted. Otherwise, no bowel abnormality, lymphadenopathy or free fluid is demonstrated. IMPRESSION: 1. Gallbladder sludge. No additional MR findings concerning for cholecystitis. 2. Normal caliber common bile duct. No filling defects. 3. 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 Follow up based on discussion with patient about risks/benefits/eligibility of treatment of cysts if needed. 4. Moderate hiatal hernia. Dictated by Kalyani Rivera MD @ 07/16/2024 6:04:19 PM (Electronically Signed)
--- NOTE | 2024-07-16 16:19 | ED.NURSE ---
Patient to MRI via cart. Family updated on plan of care, no concerns at this time. Patient appears comfortable.
[2024-07-16] MEDS: PIPERACILLIN/TAZOBACTAM 3.375 GM in 0.9 % SODIUM CHLORIDE Mini-bag 100 ML IVPB (19:06)
[2024-07-16] MEDS: 0.9 % SODIUM CHLORIDE 500 ML 500 ML IV (19:06)
--- NOTE | 2024-07-16 19:11 | P.IMHP_ITS ---
Assessment and Plan Assessment and plan (1) Acute cholecystitis: Problem comment: -obstructive in pattern; reassuring imaging -appreciate general surgery review -previous presentation similiar in 2022; EColi bacteremia noted; likely passed CBD. Lap Ronda and/or ERCP sphincterotomy not within care goals at that time -family interested in antibiotics and pain management - not likely to proceed with surgery or other surgical interventions -Zosyn, fluids, pain management -Consider Hospice eval Status: Acute (2) Urinary tract infection: Problem comment: -urine cx pending -Zosyn ordered Status: Acute (3) Dementia: Problem comment: -severe. Bed ridden - with help sits in the recliner. To be fed. Verbal to a few words. -managed by family at home -has been on aricept 10mg and seroquel 50mg daily Status: Acute (4) Sarcopenia: Problem comment: -BMI 20 Status: Acute (5) Chronic pain: Problem comment: -unclear source general discomfort as patient can't communicate. likely OA. -prn rare use of [place] 5/325 Status: Acute (6) Diabetes mellitus: Problem comment: -diet controlled Status: Acute (7) History of CVA (cerebrovascular accident): Problem comment: -posterior circulation -HOME HEALTH CARE PHYSICIAN - evidence of multiple chronic infarcts (June 2022/) Status: Acute (8) Vocal cord palsy: Problem comment: -h/o of thyroplasty @ [place] 2013 Status: Acute (9) Hypertension: Problem comment: -amlodipine Status: Acute (10) Hypothyroidism: Status: Acute Hospitalist- H&P: HPI History of Present Illness Date Seen: 07/16/24 Chief complaint: thinks she had a stroke Narrative: ADMISSION HISTORY AND PHYSICAL - HOSPITALIST Chief Complaint: our mother is not her usual self. HPI: 89 y/o who has had signfiicant decline in recent months/year with dementia and cared for at her daughter's home presents with subtle but consistent changes in the last few days. I confirmed the history below. The family noted she looked yellow and was leaning a little yesterday. No fever, apparent chills or rigors. Eating less but still seems to enjoy food; she must be fed. She is passing urine and stool. No more confused or agitated than typical. Most of the time she is polite and is always saying thank-you and that she feels cold and wants a kiss. ER MD: This 89-year-old female comes in with family members who report that she seems to be functioning differently over the past few days. She has dementia and does not express herself very well. Family member state that it seems like she sometimes is leaning to one side. They state that she has a history of stroke. They do not report any obvious unilateral weakness. There is a report of some discolored urine. Patient also has a history of gallstones that was obstructed in the past apparently that she passed into her GI tract without further intervention. The patient is a very poor historian and it is difficult to determine where she may be having symptoms. ER COURSE: MR abdomen; RUQ us. bolus; Zosyn started. CODE STATUS: DNR/DNI A discussion with family with ER was had regarding goals of care. The family states no surgical procedures. They would like to hear about hospice. They were open to fluids and antibiotics for now. PCP: Kaleb Sun MD [facility], Annamarie Ingram MD [facility] EMERGENCY CONTACT PLAN: Daisy Orta Rel To Pat Daughter CELL I've updated the PFSH, medications and allergies in the Expanse tabs. INVESTIGATIONS: LABS/MICRO/ECG/IMAGING Afebrile Blood pressure 133/64 Respiratory rate 60 Pulse ox 92% room air Weight 49.8 kilos CBC reveals a moderately elevated white blood cell count at 14.05. Neutrophils 90.4% Hemoglobin is 12.4, hematocrit 35.9 Platelet count 141 Electrolytes are unremarkable. Renal function shows BUN 26, Creat 1.4. CrCl 21, GFR 36. Total bili 3.5, direct bili 2.0. Glucose 123. AST 224, ALT 159. Normal alk-phos Troponin 0.03 Albumin normal Lipase 19 Urine: Origin cloudy. Trace ketones. Positive nitrite. Trace leukocyte esterase. 3+ bilirubin. 10-25 white blood cells. MR Abdomen 1. Gallbladder sludge. No additional MR findings concerning for cholecystitis. 2. Normal caliber common bile duct. No filling defects. 3. 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 Follow up based on discussion with patient about risks/benefits/eligibility of treatment of cysts if needed. 4. Moderate hiatal hernia. RUQ u/s Abnormal gallbladder with lobular soft tissue density in the dependent lumen without abnormal vascularity most consistent with moderate layering sludge material. Common bile duct is prominent but could be normal for age. However, consider developing cholecystitis in the appropriate clinical setting. Mild hepatic steatosis/chronic liver disease without ascites or intrahepatic mass. Incomplete visualization of the pancreas. June 2022 - admitted for severe sepsis @ [facility] -Ecoli bacteremia; transaminitis -translocation from colon - passed CBD stone -underwent ERCP without significant findings -did well discharged in three days REVIEW OF SYSTEMS: difficult due to dementia PHYSICAL EXAM: CONSTITUTIONAL: NAD. awake. answers a couple of questions. small framed/thin. looks chronically ill. GENERAL: sarcopenic, in no respiratory distress. VITAL SIGNS: see record. HEENT: Sclerae are icteric. No petechiae. CARDIAC: rhythm is regular. There is no S3 or rub. No harsh murmurs. Extremities show trace edema with symmetrical pulses. PULM: good air entry with no wheeze. ABDOMEN: soft. no guarding. NEURO: A brief neurologic exam is negative. SKIN: No rashes, petechiae, concerning changes PSYCHIATRIC: Euthymic. ADMIT TO MEDSURG: FLOOR CARE DVT: Lovenox GI: PO intake Time spent: Today I spent 75 minutes seeing the patient, discussing the patient with ER staff, reviewing Expanse and EPIC notes/diagnostics, discussing the care plan with our care time that includes social work, PT/OT, pharmacy, RT, fci and documenting my impressions and plan in the medical record. MEDICAL NECESSITY FOR HOSPITALIZATION Anticipated midnights in the hospital: 2 Admitting diagnosis: acute cholecystitis, possibly passed common bile duct stone, frailty, dementia Risk of morbidity and mortality: high Acuity is characterized as high and reflected in: Advanced age, poor nutritional status, poor muscle mass, dementia, elevated bilirubin, elevated white blood cell count. This patient will require hospital services as outlined in the assessment and plan in order to stabilize and be safely discharged to a lower level of care. Because of the risk and acuity as described above, this patient cannot be managed at a lower level of care. LENGTH OF STAY: 2 IP ? 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 - Neurologic neglect syndrome (ICD-10) Subcortical infarction (02/07/12) ?I63.9 - Cerebral infarction, unspecified (ICD-10) Cerebrovascular accident (CVA) involving posterior circulation ?I63.50 - Cerebral infarction due to unspecified occlusion or stenosis of unspecified cerebral artery (ICD-10) History of CVA (cerebrovascular accident) ?Z86.73 - Personal history of transient ischemic attack (TIA), and cerebral infarction without residual deficits (ICD-10) Osteoarthritis (arthritis due to wear and tear of joints) ?M19.90 - Unspecified osteoarthritis, unspecified site (ICD-10) Vitreous degeneration (05/26/12) ?H43.819 - Vitreous degeneration, unspecified eye (ICD-10) Uterine prolapse (05/26/12) ?N81.4 - Uterovaginal prolapse, unspecified (ICD-10) Nuclear sclerotic cataract of both eyes ?H25.13 - Age-related nuclear cataract, bilateral (ICD-10) Ischemic colitis (05/26/12) ?K55.9 - Vascular disorder of intestine, unspecified (ICD-10) Hyperopia with astigmatism and presbyopia ?H52.00 - Hypermetropia, unspecified eye (ICD-10) ?H52.209 - Unspecified astigmatism, unspecified eye (ICD-10) ?H52.4 - Presbyopia (ICD-10) Diverticulosis of intestine (05/26/12) ?K57.90 - Diverticulosis of intestine, part unspecified, without perforation or abscess without bleeding (ICD-10) Difficulty sleeping ?G47.9 - Sleep disorder, unspecified (ICD-10) History of endometrial biopsy (05/26/12) ?Z92.89 - Personal history of other medical treatment (ICD-10) Surgical History History of cystocele repair ?Z98.890 - Other specified postprocedural states (ICD-10) History of thyroplasty ?Z98.890 - Other specified postprocedural states (ICD-10) History of cataract surgery ?Z98.49 - Cataract extraction status, unspecified eye (ICD-10) H/O vein stripping (05/26/12) ?Z98.890 - Other specified postprocedural states (ICD-10) History of hysterectomy (04/09/11) ?Z90.710 - Acquired absence of both cervix and uterus (ICD-10) Family History Father Coronary artery disease Mother Stroke Social History (Updated 07/16/24 @ 20:48 by Nel Melendez MD) Narrative: Lives with daughter. . three children. lives with daughter in [place]. 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 nonsmoker. no alcohol. Smoking Status: Never smoker Meds Home Medications and Allergies Home Medications ?Medication ?Instructions ?Recorded ?Confirmed ?Type albuterol sulfate 90 mcg/actuation 2 inhalation PRN 10/25/21 11/21/21 History aerosol inhaler aspirin 81 mg tablet,delayed 81 mg PO DAILY 10/25/21 07/16/24 History release cholecalciferol (vitamin D3) 10 10 mcg PO QDAY 10/25/21 07/16/24 History mcg (400 unit) capsule Allergies Allergy/AdvReac Type Severity Reaction Status Date / Time No Known Allergies Allergy Unverified 11/21/21 14:30 Exam Const: Vital Signs, click to edit/add: Vital Signs - 24 hr 07/16/24 09:11 Temperature 97.1 F L Pulse Rate [Pulse Oximeter] 72 Respiratory Rate 20 Blood Pressure [Ri ght Upper Arm] 133/64 Pulse Oximetry 93 Oxygen Delivery Me thod Room Air Hospitalist - H&P: Result Labs Labs: Short CBC 07/16/24 Range/Units 09:31 WBC 14.05 H (4.50-11.00) K/uL Hgb 12.4 (12.0-16.0) gm/dL Hct 35.9 (33.0-51.0) % Plt Count 141 (140-440) K/uL BMP 07/16/24 09:31 Sodium 142 Potassium 3.7 Chloride 107 Carbon Dioxide 26 BUN 26 Creatinine 1.4 Glucose 123 H Calcium 9.5 Cardiac Enzymes 07/16/24 Range/Units 09:31 Troponin I 0.03 (0.01-0.04) ng/mL Liver Function 07/16/24 Range/Units 09:31 Total Bilirubin 3.5 H (0.1-1.5) mg/dL Direct Bilirubin 2.0 H (0.0-0.5) mg/dL AST 224 H (12-35) U/L ALT 159 H (4-35) U/L Alkaline Phosphatase 132 (40-150) U/L Albumin 3.4 (3.3-5.0) g/dL Urine 07/16/24 Range/Units 12:46 Urine Color [place] A (Yellow) Urine Appearance Cloudy A (Clear) Urine pH 5.5 (5.0-8.5) Ur Specific [place] 1.025 (1.000-1.030) Urine Protein 2+ A (Negative) Urine Glucose (UA) Trace A (Negative)
[2024-07-16 19:42] LABS: HCO3 VBG 27 mmol/L (21-28); Lactate* 1.5 mmol/L (0.5-1.9); PCO2 VBG 47 mmHG (40-50); PO2 VBG < 30.1 mmHG (25-47); pH VBG 7.366 (7.32-7.43)
[2024-07-16 20:53] LABS: Gamma Glutamyl Transpeptidase* 116 U/L (8-55)
[2024-07-16 20:56] LABS: C Reactive Protein* 6.9 mg/dL (0.5-1.0)
[2024-07-16 21:25] LABS: Thyroid Stimulating Hormone* 0.292 uIU/mL (0.270-4.20)
[2024-07-16] MEDS: 5 % DEXTROSE IN LAC RINGER'S 1,000 ML 75 ML IV (21:34)
[2024-07-16] MEDS: ENOXAPARIN 40 MG/0.4 ML INJ 30 MG SUBCUT (21:45)
[2024-07-16] MEDS: PANTOPRAZOLE SODIUM 40 MG INJ IVP (21:45)
[2024-07-16] MEDS: QUETIAPINE 25 MG TABLET 50 MG PO (21:46)
[2024-07-16] MEDS: SODIUM CHLORIDE 0.9 % (FLUSH) 10 ML SYRINGE 5 ML IVF (21:47)
[2024-07-16 23:01] LABS: Hemoglobin A1C* 4.8 % (0-5.6)
[2024-07-17] MEDS: PIPERACILLIN/TAZOBACTAM 2.25 GM in 0.9 % SODIUM CHLORIDE Mini-bag 100 ML IVPB ×2 (00:41→06:45)
[2024-07-17] MEDS: MORPHINE 4 MG/ML INJ 2 MG IVP ×2 (00:49→05:42)
[2024-07-17 03:00] VITALS: BP 104/47; PULSE 62; RESP 18; TEMP 36.2; O2SAT 93
[2024-07-17] MEDS: LEVOTHYROXINE 50 MCG TABLET PO (05:42)
--- NOTE | 2024-07-17 06:19 | PC.NURSE ---
End of shift report [id number]: Pleasant and cooperative with cares. Oriented to self and date. Patient is able to answer yes and no questions. Pain well managed with current regimen, patient becomes restless with discomfort. Bowel sounds active x 4 quadrants, patient guards with palpation of upper right quadrant, patient grabbed at writers hand while assessing abdomen. IV to right wrist high pressure, unable to flush. New IV inserted into right forearm and patent.
[2024-07-17 06:40] LABS: Basophils Absolute Auto 0.01 K/uL (0.00-0.30); Basophils Percent Auto 0.1 % (0.0-3.0); Eosinophils Absolute Auto 0.15 K/uL (0.00-0.50); Eosinophils Percent Auto 1.9 % (0.0-7.0); Hematocrit 31.9 % (33.0-51.0); Immature Granulocytes Abs Auto 0.02 K/uL (0.00-0.30); Immature Granulocytes Pct Auto 0.3 %; Lymphocytes Percent Auto 8.6 % (20-44); Mean Corpuscular HGB Conc 35 gm/dL (32-36); Mean Corpuscular Hemoglobin 33 pg (26-34); Mean Corpuscular Volume 95 fL (80-100); Monocytes Percent Auto 4.5 % (0.0-11.0); Neutrophils Percent Auto 84.6 % (42.0-72.0); Platelet Count* 115 K/uL (140-440); RDW Coefficient of Variation % 12.8 % (11.5-15.5); Red Blood Count 3.37 m/uL (4.00-5.20); White Blood Count* 7.99 K/uL (4.50-11.00)
[2024-07-17 06:45] LABS: Slide Review Reflex No
[2024-07-17 06:58] LABS: Chloride* 108 mmol/L (96-114)
[2024-07-17 06:59] LABS: Albumin* 2.9 g/dL (3.3-5.0); Potassium* 3.4 mmol/L (3.6-5.1); Sodium* 140 mmol/L (135-149)
[2024-07-17 07:00] VITALS: BP 111/52; PULSE 58; RESP 18; TEMP 36.5; O2SAT 98
[2024-07-17 07:01] LABS: Blood Urea Nitrogen* 21 mg/dL (7-30); Est. Creatinine Clearance* 28.82; Estimated Glomerular Filt Rate 54 ml/min
[2024-07-17 07:02] LABS: Alanine Aminotransferase* 117 U/L (4-35); Alkaline Phosphatase* 109 U/L (40-150); Anion Gap 8 mEq/L (7-15); Aspartate Amino Transferase* 128 U/L (12-35); Bilirubin Total* 1.8 mg/dL (0.1-1.5); Calcium* 8.6 mg/dL (8.4-10.6); Carbon Dioxide* 24 mmol/L (20-32); Glucose* 114 mg/dL (60-115); Phosphorus* 2.3 mg/dL (2.5-4.5); Total Protein* 5.4 g/dL (6.0-8.3)
[2024-07-17 07:05] LABS: C Reactive Protein* 6.2 mg/dL (0.5-1.0)
--- NOTE | 2024-07-17 08:28 | PM.GSCN ---
History of Present Illness Consult details Date Seen: 07/17/24 Consult date: 07/17/24 Narrative: The patient is an 89-year-old female who was brought to the emergency department yesterday by her daughter with several days of decreased function. She does have dementia. They noticed that she appeared more jaundice and had some discolored urine. She had no change in eating however. She does have a history of gallstones and reportedly previously family declined any further intervention. She was found to have markedly elevated liver function tests in the emergency department. Particularly, total bilirubin was 3.5, with a direct fraction of 2.0. AST and ALT are also mildly elevated. He is was normal. Ultrasound demonstrated an abnormal gallbladder with layering sludge and a prominent common bile duct. Developing cholecystitis was in the differential. I was contacted by the emergency department on how to proceed. MRCP was obtained. This did not show overt cholecystitis nor common bile obstruction, though it did show multiple pancreatic cysts. 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) ?I63.9 - Cerebral infarction, unspecified (ICD-10) Cerebrovascular accident (CVA) involving posterior circulation ?I63.50 - Cerebral infarction due to unspecified occlusion or stenosis of unspecified cerebral artery (ICD-10) History of CVA (cerebrovascular accident) ?Z86.73 - Personal history of transient ischemic attack (TIA), and cerebral infarction without residual deficits (ICD-10) Osteoarthritis (arthritis due to wear and tear of joints) ?M19.90 - Unspecified osteoarthritis, unspecified site (ICD-10) Vitreous degeneration (05/26/12) ?H43.819 - Vitreous degeneration, unspecified eye (ICD-10) Uterine prolapse (05/26/12) ?N81.4 - Uterovaginal prolapse, unspecified (ICD-10) Nuclear sclerotic cataract of both eyes ?H25.13 - Age-related nuclear cataract, bilateral (ICD-10) Ischemic colitis (05/26/12) ?K55.9 - Vascular disorder of intestine, unspecified (ICD-10) Hyperopia with astigmatism and presbyopia ?H52.00 - Hypermetropia, unspecified eye (ICD-10) ?H52.209 - Unspecified astigmatism, unspecified eye (ICD-10) ?H52.4 - Presbyopia (ICD-10) Diverticulosis of intestine (05/26/12) ?K57.90 - Diverticulosis of intestine, part unspecified, without perforation or abscess without bleeding (ICD-10) Difficulty sleeping ?G47.9 - Sleep disorder, unspecified (ICD-10) History of endometrial biopsy (05/26/12) ?Z92.89 - Personal history of other medical treatment (ICD-10) Surgical History History of cystocele repair ?Z98.890 - Other specified postprocedural states (ICD-10) History of thyroplasty ?Z98.890 - Other specified postprocedural states (ICD-10) History of cataract surgery ?Z98.49 - Cataract extraction status, unspecified eye (ICD-10) H/O vein stripping (05/26/12) ?Z98.890 - Other specified postprocedural states (ICD-10) History of hysterectomy (04/09/11) ?Z90.710 - Acquired absence of both cervix and uterus (ICD-10) Family History Father Coronary artery disease Mother Stroke Social History (Updated 07/16/24 @ 20:48 by Nel Melendez MD) Narrative: Lives with daughter. . three children. lives [place] in [place]. 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 nonsmoker. no alcohol. What is your current living situation?: unable to answer Problems where you live: no known problems Problems where you live details: none known In the past 12 months, utilities in danger of being shut off: unable to answer In past 12 months, lack of transportation kept you from medical appts, meetings, work, or getting things needed for daily living: unable to answer In the past 12 mos, have been you worried that your food would run out before you had money to buy more?: unable to answer In the past 12 mos, the food you bought just didn't last and you didn't have money to buy more?: unable to answer Smoking Status: Never smoker Caffeine: No How often does anyone, including family, friends and others, physically hurt you: unable to answer How often does anyone, including family, friends and others, insult or talk down to you: unable to answer How often does anyone, including family, friends and others, threaten you with harm: unable to answer How often does anyone, including family, friends and others, scream or curse at you: unable to answer service: No Meds Home Medications and Allergies Home Medications ?Medication ?Instructions ?Recorded ?Confirmed ?Type albuterol sulfate 90 mcg/actuation 2 inhalation PRN 10/25/21 11/21/21 History aerosol inhaler aspirin 81 mg tablet,delayed 81 mg PO DAILY 10/25/21 07/16/24 History release cholecalciferol (vitamin D3) 10 10 mcg PO QDAY 10/25/21 07/16/24 History mcg (400 unit) capsule Allergies Allergy/AdvReac Type Severity Reaction Status Date / Time No Known Allergies Allergy Unverified 11/21/21 14:30 Exam Narrative: Exam Narrative: General: Patient resting comfortably in bed. Respiratory: Breathing nonlabored Abdomen: No significant discomfort to palpation Const: Vital Signs, click to edit/add: Vital Signs - 24 hr 07/16/24 08:51 07/16/24 08:52 07/16/24 08:54 Temperature Pulse Rate 74 72 72 Pulse Rate [Pulse Oximeter] Respiratory Rate 21 Blood Pressure 133/64 124/60 Blood Pressure [Le ft Arm] Blood Pressure [Ri ght Upper Arm] Pulse Oximetry 93 93 92 Oxygen Delivery Me thod 07/16/24 09:00 07/16/24 09:02 07/16/24 09:11 Temperature 97.1 F L Pulse Rate 68 68 Pulse Rate [Pulse Oximeter] 72 Respiratory Rate 14 20 Blood Pressure 120/56 L Blood Pressure [Le ft Arm] Blood Pressure [Ri ght Upper Arm] 133/64 Pulse Oximetry 93 93 93 Oxygen Delivery Me thod Room Air 07/16/24 09:15 07/16/24 09:30 07/16/24 09:45 Temperature Pulse Rate 64 Pulse Rate [Pulse Oximeter] Respiratory Rate 9 L 8 L 13 Blood Pressure Blood Pressure [Le ft Arm] Blood Pressure [Ri ght Upper Arm] Pulse Oximetry 92 Oxygen Delivery Me thod 07/16/24 10:00 07/16/24 10:15 07/16/24 10:30 Temperature Pulse Rate Pulse Rate [Pulse Oximeter] Respiratory Rate 21 20 15 Blood Pressure Blood Pressure [Le ft Arm] Blood Pressure [Ri ght Upper Arm] Pulse Oximetry Oxygen Delivery Ri thod 07/16/24 10:45 07/16/24 11:00 07/16/24 11:15 Temperature Pulse Rate Pulse Rate [Pulse Oximeter] Respiratory Rate 0 L 9 L 10 L Blood Pressure Blood Pressure [Le ft Arm] Blood Pressure [Ri ght Upper Arm] Pulse Oximetry Oxygen Delivery Ri thod 07/16/24 11:30 07/16/24 11:45 07/16/24 12:02 Temperature Pulse Rate Pulse Rate [Pulse Oximeter] Respiratory Rate 8 L 19 17 Blood Pressure Blood Pressure [Le ft Arm] Blood Pressure [Ri ght Upper Arm] Pulse Oximetry Oxygen Delivery [facility] 07/16/24 12:20 07/16/24 12:30 07/16/24 12:38 Temperature 97.1 F L Pulse Rate 68 Pulse Rate [Pulse Oximeter] Respiratory Rate 20 8 L 15 Blood Pressure 126/59 L Blood Pressure [Le ft Arm] Blood Pressure [Ri ght Upper Arm] Pulse Oximetry 93 Oxygen Delivery Ri thod 07/16/24 20:34 07/16/24 23:00 07/17/24 03:00 Temperature 98 F 97.2 F L Pulse Rate Pulse Rate [Pulse Oximeter] 68 63 62 Respiratory Rate 18 20 18 Blood Pressure Blood Pressure [Le ft Arm] 117/87 104/47 L Blood Pressure [Ri ght Upper Arm] Pulse Oximetry 94 93 Oxygen Delivery Me od Room Air Room Air 07/17/24 07:00 07/17/24 07:00 Temperature 97.7 F Pulse Rate Pulse Rate [Pulse Oximeter] 58 L 58 L Respiratory Rate 18 18 Blood Pressure Blood Pressure [Le ft Arm] 111/52 L Blood Pressure [Ri ght Upper Arm] Pulse Oximetry 98 Oxygen Delivery Me od Room Air Results Labs Labs: Abnormal lab results 07/16/24 07/16/2407/16/25 Range/Units 09:31 12:46 19:37 WBC 14.05 H (4.50-11.00) K/uL RBC 3.81 L (4.00-5.20) m/uL Hgb (12.0-16.0) gm/dL Hct (33.0-51.0) % Plt Count (140-440) K/uL Neut % (Auto) 90.4 H (42.0-72.0) % Lymph % (Auto) 4.4 L (20-44) % Neut # (Auto) 12.70 H (1.7-7.0) K/uL Lymph # (Auto) 0.60 L (0.90-2.90) K/uL Potassium (3.6-5.1) mmol/L Glucose 123 H (60-115) mg/dL Phosphorus (2.5-4.5) mg/dL Total Bilirubin 3.5 H (0.1-1.5) mg/dL Direct Bilirubin 2.0 H (0.0-0.5) mg/dL GGT 116 H (8-55) U/L AST 224 H (12-35) U/L ALT 159 H (4-35) U/L C-Reactive Protein 6.9 H (0.5-1.0) mg/dL Total Protein (6.0-8.3) g/dL Albumin (3.3-5.0) g/dL Lipase 19 L (23-300) U/L Urine Color [place] A (Yellow) Urine Appearance Cloudy A (Clear) Urine Protein 2+ A (Negative) Urine Glucose (UA) Trace A (Negative) Urine Ketones Trace A (Negative) Urine Blood 2+ A (Negative) Urine Nitrite Positive A (Negative) Urine Bilirubin 3+ A (Negative) Urine Urobilinogen >=8.0 A (0.2-1.0) Ur Leukocyte Esterase Trace A (Negative) Urine RBC 2-5 A (0-2) Urine WBC 10-25 A (0-5) Ur Squamous Epith Cells Moderate A (None-Few) Amorphous Sediment Many A (None) Urine Bacteria Many A (None) 07/17/24 Range/Units 06:01 WBC (4.50-11.00) K/uL RBC 3.37 L (4.00-5.20) m/uL Hgb 11.0 L (12.0-16.0) gm/dL Hct 31.9 L (33.0-51.0) % Plt Count 115 L (140-440) K/uL Neut % (Auto) 84.6 H (42.0-72.0) % Lymph % (Auto) 8.6 L (20-44) % Neut # (Auto) (1.7-7.0) K/uL Lymph # (Auto) 0.70 L (0.90-2.90) K/uL Potassium 3.4 L (3.6-5.1) mmol/L Glucose (60-115) mg/dL Phosphorus 2.3 L (2.5-4.5) mg/dL Total Bilirubin 1.8 H (0.1-1.5) mg/dL Direct Bilirubin 1.0 H (0.0-0.5) mg/dL GGT (8-55) U/L AST 128 H (12-35) U/L ALT 117 H (4-35) U/L C-Reactive Protein 6.2 H (0.5-1.0) mg/dL Total Protein 5.4 L (6.0-8.3) g/dL Albumin 2.9 L (3.3-5.0) g/dL Lipase (23-300) U/L Urine Color (Yellow) Urine Appearance (Clear) Urine Protein (Negative) Urine Glucose (UA) (Negative) Urine Ketones (Negative) Urine Blood (Negative) Urine Nitrite (Negative) Urine Bilirubin (Negative) Urine Urobilinogen (0.2-1.0) Ur Leukocyte Esterase (Negative) Urine RBC (0-2) Urine WBC (0-5) Ur Squamous Epith Cells (None-Few) Amorphous Sediment (None) Urine Bacteria (None) Diabetes panel 07/16/24 07/17/24 Range/Units 09:31 06:01 Sodium 142 140 (135-149) mmol/L Potassium 3.7 3.4 L (3.6-5.1) mmol/L Chloride 107 108 (96-114) mmol/L Carbon Dioxide 26 24 (20-32) mmol/L BUN 26 21 (7-30) mg/dL Creatinine 1.4 1.0 (0.5-1.5) mg/dL Glucose 123 H 114 (60-115) mg/dL Hemoglobin A1c 4.8 (0-5.6) % Calcium 9.5 8.6 (8.4-10.6) mg/dL AST 224 H 128 H (12-35) U/L ALT 159 H 117 H (4-35) U/L Alkaline Phosphatase 132 109 (40-150) U/L Total Protein 6.1 5.4 L (6.0-8.3) g/dL Albumin 3.4 2.9 L (3.3-5.0) g/dL Thyroid panel 07/16/24 Range/Units 09:31 TSH 0.292 (0.270-4.20) uIU/mL Calcium panel 07/16/24 07/17/24 Range/Units 09:31 06:01 Calcium 9.5 8.6 (8.4-10.6) mg/dL Phosphorus 2.3 L (2.5-4.5) mg/dL Albumin 3.4 2.9 L (3.3-5.0) g/dL Pituitary panel 07/16/24 07/17/24 Range/Units 09:31 06:01 Sodium 142 140 (135-149) mmol/L Potassium 3.7 3.4 L (3.6-5.1) mmol/L Chloride 107 108 (96-114) mmol/L Carbon Dioxide 26 24 (20-32) mmol/L BUN 26 21 (7-30) mg/dL Creatinine 1.4 1.0 (0.5-1.5) mg/dL Glucose 123 H 114 (60-115) mg/dL Calcium 9.5 8.6 (8.4-10.6) mg/dL TSH 0.292 (0.270-4.20) uIU/mL Adrenal panel 07/16/24 07/17/24 Range/Units 09:31 06:01 Sodium 142 140 (135-149) mmol/L Potassium 3.7 3.4 L (3.6-5.1) mmol/L Chloride 107 108 (96-114) mmol/L Carbon Dioxide 26 24 (20-32) mmol/L BUN 26 21 (7-30) mg/dL Creatinine 1.4 1.0 (0.5-1.5) mg/dL Glucose 123 H 114 (60-115) mg/dL Calcium 9.5 8.6 (8.4-10.6) mg/dL Total Bilirubin 3.5 H 1.8 H (0.1-1.5) mg/dL AST 224 H 128 H (12-35) U/L ALT 159 H 117 H (4-35) U/L Alkaline Phosphatase 132 109 (40-150) U/L Total Protein 6.1 5.4 L (6.0-8.3) g/dL Albumin 3.4 2.9 L (3.3-5.0) g/dL All other labs normal. Imaging Abdominal ultrasound report/results: report reviewed and image reviewed Additional studies: US abdomen 07/16/24: IMPRESSION: Abnormal gallbladder with lobular soft tissue density in the dependent lumen without abnormal vascularity most consistent with moderate layering sludge material. Common bile duct is prominent but could be normal for age. However, consider developing cholecystitis in the appropriate clinical setting. Mild hepatic steatosis/chronic liver disease without ascites or intrahepatic mass. Incomplete visualization of the pancreas. Dictated by Tonio Manzo MD @ 07/16/2024 1:04:01 PM MRCP 07/16/24: IMPRESSION: 1. Gallbladder sludge. No additional MR findings concerning for cholecystitis. 2. Normal caliber common bile duct. No filling defects. 3. 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 Follow up based on discussion with patient about risks/benefits/eligibility of treatment of cysts if needed. 4. Moderate hiatal hernia. Dictated by Kalyani Rivera MD @ 07/16/2024 6:04:19 PM Progress Note:A&P Assessment and plan (1) Acute cholecystitis: Status: Acute (2) Urinary tract infection: Status: Acute (3) Dementia: Status: Acute Plan The patient is an 81-year-old female with dementia, urinary tract infection likely acute cholecystitis. Family has declined any surgical intervention per report but also has elected to proceed with hospice care. Antibiotics have been stopped. Of note, patient's labs today are improved. -if this plan were to change, would recommend starting with a course of antibiotics. If patient fails to improve then discussions could be had for cholecystostomy tube versus cholecystectomy. -please call with any questions or concerns.
--- NOTE | 2024-07-17 09:08 | REH.PT ---
PT received orders for eval and treat, family declines PT services reporting that the pt is comfortable right now and don't want to move the patient due to fear of increasing pain. Family expresses interest in receiving home hospice and wants to discuss with SW. Family plans on taking care of pt, similar to prior to hospitalization. Notes that pt has a 4WW and WC at home. Recommend EMS service, stretcher assist for transport home. DC Eval and treat orders.
[2024-07-17] MEDS: OMEPRAZOLE 20 MG CAPSULE DR PO (09:09)
[2024-07-17] MEDS: SODIUM CHLORIDE 0.9 % (FLUSH) 10 ML SYRINGE 5 ML IVF (09:09)
--- NOTE | 2024-07-17 10:09 | P.DS_ITS ---
DS: Providers Provider Date Seen: 07/17/24 Date of admission: 07/16/24 20:34 Primary care physician: Not a Local Provider Admitting Clinician: Nel Melendez MD Consults: 07/16/24 20:34 Consult to Occupational Therapy [CONS] Routine Comment: Reason(s) for OT Consult:: Evaluate and Treat Any Restrictions?:: No Restrictions Consult to Physical Therapy [CONS] Routine Comment: Reason(s) for PT Consult:: Evaluate and Treat Any Restrictions?:: No Restrictions Consult to Jukebox Operator [CONS] Routine Comment: Reason for Consult:: Social Service Consult Attending Physician on discharge: Juliann Godinez, TIM, PAIvanaC Date of Discharge: 07/17/24 DS: Diagnosis Discharge Diagnosis (1) Acute cholecystitis: Status: Acute Problem details: -obstructive in pattern; reassuring imaging -appreciate general surgery review -previous presentation similiar in 2022; EColi bacteremia noted; likely passed CBD. Lap Ronda and/or ERCP sphincterotomy not within care goals at that time -family interested in antibiotics and pain management - not likely to proceed with surgery or other surgical interventions -Zosyn, fluids, pain management -Consider Hospice eval Family has decided to pursue hospice cares. Discussed risks/benefits surgical intervention and antibiotic therapy as well as outpatient follow up, potential for recurrence, hospital/hospice cares. Daughter tells me her mom has indicated she is ready to , does not want to suffer. Antibiotics have been discontinued after discussion with daughters/POA. Pain management is appropriate. (2) Urinary tract infection: Status: Acute Problem details: -urine cx pending -Zosyn ordered Family has decided to pursue hospice cares. Antibiotics have been discontinued as above. (3) Dementia: Status: Acute Problem details: -severe. Bed ridden - with help sits in the recliner. To be fed. Verbal to a few words. -managed by family at home -has been on aricept 10mg and seroquel 50mg daily Family has decided to pursue hospice cares. social worker health services assisting. (4) Sarcopenia: Status: Acute Problem details: -BMI 20 (5) Chronic pain: Status: Acute Problem details: -unclear source general discomfort as patient can't communicate. likely OA. -prn rare use of [place] 5/325 Continue pain management in hospice cares. (6) Diabetes mellitus: Status: Acute Problem details: -diet controlled Diet for enjoyment as tolerated (7) History of CVA (cerebrovascular accident): Status: Acute Problem details: -posterior circulation -CLASSIFIER TENDER - evidence of multiple chronic infarcts (June 2022/) (8) Vocal cord palsy: Status: Acute Problem details: -h/o of thyroplasty @ [facility] 2013 (9) Hypertension: Status: Acute Problem details: -amlodipine (10) Hypothyroidism: Status: Acute Problem details: -levothyroxine DS: Summary Hospital Course Hospital Course: Course of care and details as noted above. Discussion with daughter, primary caregiver, to pursue hospice cares. Was hospice care provider for her father approximately 14 years ago as well. Comfort/pain management is goal. Will discontinue antibiotics. Home medications to be managed by hospice. Status at Discharge Functional status at discharge: bed bound Overall status at discharge: patient is not back to baseline Time Spent with Patient Time attestation: Total time spent providing and/or coordinating discharge services: Time spent: Greater than 30 minutes Exam Narrative: Exam Narrative: PHYSICAL EXAM General: Smiles, appears comfortable Cardiovascular: RRR Pulmonary: No dyspnea on room air Neurological: Alert, easily falls asleep Skin: Warm, dry. Const: Vital Signs, click to edit/add: Vital Signs - 24 hr 07/16/24 10:15 07/16/24 10:30 07/16/24 10:45 Temperature Pulse Rate Pulse Rate [Pulse Oximeter] Respiratory Rate 20 15 0 L Blood Pressure Blood Pressure [Le ft Arm] [facility] 11:00 07/16/24 11:15 07/16/24 11:30 Temperature Pulse Rate Pulse Rate [Pulse Oximeter] Respiratory Rate 9 L 10 L 8 L Blood Pressure Blood Pressure [Le ft Arm] Pulse Oximetry [facility] 07/16/24 11:45 07/16/24 12:02 07/16/24 12:20 Temperature Pulse Rate Pulse Rate [Pulse Oximeter] Respiratory Rate 19 17 20 Blood Pressure Blood Pressure [Le ft Arm] Pulse Oximetry [facility] 07/16/24 12:30 07/16/24 12:38 07/16/24 20:34 Temperature 97.1 F L 98 F Pulse Rate 68 Pulse Rate [Pulse Oximeter] 68 Respiratory Rate 8 L 15 18 Blood Pressure 126/59 L Blood Pressure [Le ft Arm] 117/87 Pulse Oximetry 93 94 Oxygen Delivery Me thod Room Air 07/16/24 23:00 07/17/24 03:00 07/17/24 07:00 Temperature 97.2 F L 97.7 F Pulse Rate Pulse Rate [Pulse Oximeter] 63 62 58 L Respiratory Rate 20 18 18 Blood Pressure Blood Pressure [Le ft Arm] 104/47 L 111/52 L Pulse Oximetry 93 98 Oxygen Delivery Me thod Room Air Room Air 07/17/24 07:00 Temperature Pulse Rate Pulse Rate [Pulse Oximeter] 58 L Respiratory Rate 18 Blood Pressure Blood Pressure [Le ft Arm] Pulse Oximetry Oxygen Delivery Me thod DS: Data Data Completed and Pending Labs on day of discharge: Labs from last 24 hours 07/17/24 07/16/24 07/16/24 06:01 20:34 19:37 WBC 7.99 RBC 3.37 L Hgb 11.0 L Hct 31.9 L MCV 95 MCH 33 MCHC 35 RDW Coeff of Avni 12.8 Plt Count 115 L Neut % (Auto) 84.6 H Lymph % (Auto) 8.6 L [place]alfa % (Auto) 4.5 Eos % (Auto) 1.9 Baso % (Auto) 0.1 Neut # (Auto) 6.80 Lymph # (Auto) 0.70 L [place] # (Auto) 0.40 Eos # (Auto) 0.15 Baso # (Auto) 0.01 Abs Immat Gran (auto) 0.02 Imm/Tot Granulo (auto) 0.3 VBG pH 7.366 VBG pCO2 47 VBG pO2 < 30.1 VBG HCO3 27 Sodium 140 Potassium 3.4 L Chloride 108 Carbon Dioxide 24 Anion Gap 8 BUN 21 Creatinine 1.0 Estimated Creat Clear 28.82 Estimated GFR 54 Glucose 114 Hemoglobin A1c Lactate 1.5 Calcium 8.6 Phosphorus 2.3 L Total Bilirubin 1.8 H Direct Bilirubin 1.0 H GGT 116 H AST 128 H ALT 117 H Alkaline Phosphatase 109 Troponin I C-Reactive Protein 6.2 H 6.9 H Total Protein 5.4 L Albumin 2.9 L Lipase TSH Urine Color Urine Appearance Urine pH Ur Specific [place] Urine Protein Urine Glucose (UA) Urine Ketones Urine Blood Urine Nitrite Urine Bilirubin Urine Urobilinogen Ur Leukocyte Esterase Urine RBC Urine WBC Ur Squamous Epith Cells Amorphous Sediment Urine Bacteria Lab Acknowledgement Test Added 07/16/24 07/16/24 12:46 09:31 WBC RBC Hgb Hct MCV MCH MCHC RDW Coeff of Avni Plt Count Neut % (Auto) Lymph % (Auto) [place] % (Auto) Eos % (Auto) Baso % (Auto) Neut # (Auto) Lymph # (Auto) [place] # (Auto) Eos # (Auto) Baso # (Auto) Abs Immat Gran (auto) Imm/Tot Granulo (auto) VBG pH VBG pCO2 VBG pO2 VBG HCO3 Sodium 142 Potassium 3.7 Chloride 107 Carbon Dioxide 26 Anion Gap 9 BUN 26 Creatinine 1.4 Estimated Creat Clear 20.96 Estimated GFR 36 Glucose 123 H Hemoglobin A1c 4.8 Lactate Calcium 9.5 Phosphorus Total Bilirubin 3.5 H Direct Bilirubin 2.0 H GGT AST 224 H ALT 159 H Alkaline Phosphatase 132 Troponin I 0.03 C-Reactive Protein Total Protein 6.1 Albumin 3.4 Lipase 19 L TSH 0.292 Urine Color [place] A Urine Appearance Cloudy A Urine pH 5.5 Ur Specific [place] 1.025 Urine Protein 2+ A Urine Glucose (UA) Trace A Urine Ketones Trace A Urine Blood 2+ A Urine Nitrite Positive A Urine Bilirubin 3+ A Urine Urobilinogen >=8.0 A Ur Leukocyte Esterase Trace A Urine RBC 2-5 A Urine WBC 10-25 A Ur Squamous Epith Cells Moderate A Amorphous Sediment Many A Urine Bacteria Many A Lab Acknowledgement Preliminary micro results at discharge 07/16/24 12:46 Urine Culture - Preliminary Urine Catheterized Culture in Progress Imaging MRI - abdomen: Attestation: I have reviewed the pertinent imaging results. My impression: MRI in the ED confirms cholecystitis. Family pursuing hospice cares, no further workup. US - abdomen: Attestation: I have reviewed the pertinent imaging results. My impression: Ultrasound in ED suspicious for cholecystitis. Family pursuing hospice cares, no further workup Discharge Plan Discharge Disposition: Xfer Home- (Hospice) Date of Admission: 07/16/24 20:34 Attending Provider on Discharge: Juliann Godinez Primary Care Provider: Provider,Not a Local Condition: Unchanged Anticipated Discharge Date/Time: 07/17/24 10:05 Discharge Medications: Continued albuterol sulfate 90 mcg/actuation HFA aerosol inhaler 2 inhalation PRN cholecalciferol (vitamin D3) 10 mcg (400 unit) capsule 10 mcg PO QDAY aspirin 81 mg tablet,delayed release (DR/EC) 81 mg PO DAILY celecoxib [Celebrex] 100 mg capsule 100 mg PO DAILY Qty: 90 4RF amlodipine 5 mg tablet 5 mg PO DAILY Qty: 90 4RF levothyroxine 50 mcg tablet 50 mcg PO DAILY Qty: 90 4RF quetiapine 50 mg tablet 50 mg PO .Bedtime Qty: 90 4RF omeprazole 20 mg capsule,delayed release(DR/EC) 20 mg PO DAILY Qty: 90 4RF donepezil 10 mg tablet 10 mg PO .Bedtime Qty: 90 2RF simvastatin 20 mg tablet 20 mg PO .Bedtime Qty: 90 0RF Discharge Orders: Discharge Order (Routine); Ordered 07/17/24 Ordered By: Juliann Godinez Additional Instructions: ADMIT TO [facility]. Further management per hospice. Activity Level: Activity as Tolerated Discharge Diet: Regular Follow Up Appointments: Provider,Not a Local [Primary Care Provider] - Forms: [facility] Info Instructions
--- NOTE | 2024-07-17 10:10 | NUTR.NU ---
RDN with nutrition screen related to positive MST score and skin risk. Per IDT, Family is expressing interest in receiving home hospice. Further discussion with social work and hospitalist to be expected. Not appropriate for nutrition screen and interventions at this time given goals of care discussion. RDN will continue to monitor and follow-up as appropriate.
--- NOTE | 2024-07-17 11:05 | PC.SOCIAL ---
Addendum entered by CASSIE Godinez 07/17/24 11:26: Discharge planning: Pt's daughter did request a hospital bed for medical equipment and Perri with [facility] will order that and have it delivered to the pt's home. Social work to follow-up as needed. Original Note: Discharge planning: Pt will discharge home today with her daughter, Alecia, on hospice. [facility] will be able to do an admission with the pt this afternoon at her home. Pt lives with her daughter, Alecia, and Alecia will be her full-time caregiver. Pt will transport via non-emergent EMS. Pt's insurance may cover the cost of the transport due to pt's diagnosis of Dimentia; however, this worker did have the pt's daughter, Alecia, sign the non-emergent EMS wheelchair form. The cost will be around $253.00 if insurance does not cover the cost of transport and the daughter was fine with that amount and agreed to signing the form. The pt lives in [place] and according to [employer] maps the pt's address is [address] from [facility]([phone]). labor relations worker faxed all the needed information to Perri at [facility] #[phone], fax #[phone]. Social work to follow-up as needed.
--- NOTE | 2024-07-17 12:09 | REH.OT ---
OT: Order received, team clarified patient transitioning to hospice and decline need for OT. Family providing 24hour care to patient. Eval deferred per team.
[2024-07-17] MEDS: MORPHINE 10 MG/0.5 ML ORAL SOLN PO (12:28)
--- NOTE | 2024-07-17 14:05 | PC.NURSE ---
Discharge: Patient pleasant and cooperative, A&O. VSS, afebrile. IV removed with tip intact. Discharged to home on hospice via non emergent EMS.
== END 2024-07-17 13:44 | disposition hospice, home (50) | DRG 445 ==
LOC: ED 18:30 → MEDSURG 20:33
PROVIDERS: Admitting Provider Family Medicine; Emergency Provider Emergency Medicine Emergency Medical Services; Visit Provider Family Medicine
DX: K81.0 Acute cholecystitis (principal); N39.0 Urinary tract infection, site not specified; F03.C0 Unspecified dementia, severe, without behavioral disturbance, psychotic disturbance, mood disturbance, and anxiety; Z74.01 Bed confinement status; M62.84 Sarcopenia; E11.9 Type 2 diabetes mellitus without complications; Z68.20 Body mass index [BMI] 20.0-20.9, adult; G89.29 Other chronic pain; J38.00 Paralysis of vocal cords and larynx, unspecified; K76.0 Fatty (change of) liver, not elsewhere classified; Z86.73 Personal history of transient ischemic attack (TIA), and cerebral infarction without residual deficits; Z79.82 Long term (current) use of aspirin; I10 Essential (primary) hypertension; E03.9 Hypothyroidism, unspecified
CPT/HCPCS: 36415; 74181; 76705; 80053; 80069; 80076; 81001; 82248; 82803; 82977; 83036; 83605; 83690; 84443; 84484; 85025; 86140; 87040; 87086; 93005; 99284; 99285; A9270; J1650; J2270; J2470; J2543; J7030

== ENCOUNTER 2024-07-17 13:37 | Outpatient (CLI) | payer MEDICARE, OTHER, SELFPAY | END 2024-07-17 13:38 | disposition home or self-care (01) | LOC: AMB 07-20 08:40 | PROVIDERS: Visit Provider Internal Medicine | DX: K81.0 Acute cholecystitis (principal); N39.0 Urinary tract infection, site not specified; F03.90 Unspecified dementia, unspecified severity, without behavioral disturbance, psychotic disturbance, mood disturbance, and anxiety | CPT/HCPCS: A0425; A0428 ==